=== PATIENT | male | born 1945 | race Caucasian/White ===

== ENCOUNTER → 2018-02-27 | Outpatient (CLI) | payer OTHER, MEDICARE | LOC: M SLEEP 19:32 | DX: G47.33 Obstructive sleep apnea (adult) (pediatric) (principal); G47.61 Periodic limb movement disorder | CPT/HCPCS: 95811 ==

== ENCOUNTER 2019-04-08 11:34 | Day surgery (SDC) | payer OTHER ==
[~2019-04-08] VITALS: Ht 172.7 cm; Wt 89.8 kg
[~2019-04-08 11:34] MED LIST: ASPI81TA85 PO; NS 1,000 ML IV ONE; PROPOFOL 200 MG/20 ML VIAL As Ordered ONE; SIMV10TA21 PO; SYMB16INH INH
--- NOTE | 2019-04-08 13:07 | ROOR ---
Patient Name: Ricardo Hooper Procedure Date: 04/08/2019 12:46 PM Date of : 1945 Age: 74 Room: [facility] Gender: Male Note Status: Finalized Procedure: Total Colonoscopy to Cecum + Biopsy Polypectomy Indications: High risk colon cancer surveillance: Personal history of colonic polyps, Last colonoscopy: 2013 Providers: Regan Oshea MD Referring MD: Eric Escobedo MD Requesting Provider: Medicines: Monitored Anesthesia Care Complications: No immediate complications. Procedure: Pre-Anesthesia Assessment: - The heart rate, respiratory rate, oxygen saturations, blood pressure, adequacy of pulmonary ventilation, and response to care were monitored throughout the procedure. The Colonoscope was introduced through the anus and advanced to the cecum, identified by appendiceal orifice and ileocecal valve. The colonoscopy was performed without difficulty. The patient tolerated the procedure well. The quality of the bowel preparation was excellent. Findings: The perianal and digital rectal examinations were normal. Non-bleeding internal hemorrhoids were found during retroflexion. The hemorrhoids were small and Grade I (internal hemorrhoids that do not prolapse). A small polyp was found at 30 cm proximal to the anus. The polyp was sessile. The polyp was removed with a jumbo cold forceps. Resection and retrieval were complete. A small polyp was found in the mid ascending colon. The polyp was sessile. The polyp was removed with a cold biopsy forceps. Resection and retrieval were complete. The exam was otherwise without abnormality on direct and retroflexion views. Impression: - Non-bleeding internal hemorrhoids. - One small polyp at 30 cm proximal to the anus, removed with a jumbo cold forceps. Resected and retrieved. - One small polyp in the mid ascending colon, removed with a cold biopsy forceps. Resected and retrieved. - The examination was otherwise normal on direct and retroflexion views. - The exam was otherwise normal to the cecum. Recommendation: - Patient has a contact number available for emergencies. The signs and symptoms of potential delayed complications were discussed with the patient. Return to normal activities tomorrow. Written discharge instructions were provided to the patient. - High fiber diet. - Discharge patient to home. - Continue present medications. - Await pathology results. - Telephone GI clinic for pathology results in 1 week. - Repeat colonoscopy for symptoms only. - Return to referring physician. - The findings and recommendations were discussed with the patient's family. Regan Oshea MD Regan Oshea MD 04/08/2019 1:07:25 PM Electronically signed by Regan Oshea MD Number of Addenda: 0 Note Initiated On: 04/08/2019 12:46 PM Estimated Blood Loss: Estimated blood loss: none.
[2019-04-08 13:15] VITALS: BP 151/71
== END 2019-04-08 13:39 | disposition home or self-care (01) ==
LOC: M OPP 11:34
PROVIDERS: ATTEND Internal Medicine Gastroenterology
DX: Z12.11 Encounter for screening for malignant neoplasm of colon (principal); Z86.010 Personal history of colon polyps; K64.0 First degree hemorrhoids; D12.2 Benign neoplasm of ascending colon; J44.9 Chronic obstructive pulmonary disease, unspecified; G47.30 Sleep apnea, unspecified; Z79.82 Long term (current) use of aspirin; Z79.899 Other long term (current) drug therapy; Z95.5 Presence of coronary angioplasty implant and graft; Z87.891 Personal history of nicotine dependence

== ENCOUNTER 2019-07-24 10:17 | Observation (INO) | payer MEDICARE, OTHER ==
[~2019-07-24] VITALS: Ht 170.2 cm; Wt 94.6 kg
[~2019-07-24 10:17] MED LIST changes: -NS 1,000 ML IV ONE; -PROPOFOL 200 MG/20 ML VIAL As Ordered ONE
[2019-07-24] MEDS ORDERED: methylPREDNISolone INJ 125 MG/2 ML VIAL (J2930) IV ONE (10:30)
[2019-07-24] MEDS: COMBIVENT RESPIMAT 100-20MCG INHALER 4GM INH SCH ×3 (11:04→11:22)
[2019-07-24 11:08] LABS: VENOUS BASE EXCESS -0.5 (-2.0-2.0); VENOUS HCO3 24.9 MEQ/L (23.0-27.0); VENOUS O2 SATURATION 86.2 % (60.0-80.0); VENOUS PARTIAL PRESSURE CO2 43.5 mmHg (38.0-50.0); VENOUS PARTIAL PRESSURE O2 52.2 mmHg (30.0-50.0); VENOUS PH 7.375 UNITS (7.330-7.430); VENOUS STANDARD HCO3 23.7 MEQ/L; VENOUS TOTAL CO2 26.2 MEQ/L (24.0-28.0)
[2019-07-24 11:15] LABS: BASO % 0.3 % (0.0-1.0); EOS % 0.4 % (0.0-3.0); HEMATOCRIT 47.5 % (42.0-52.0); HEMOGLOBIN 15.5 g/dl (13.5-17.5); LYMPH % 10.4 % (24.0-44.0); MEAN CORPUSCULAR HEMOGLOBIN 30.8 pg (27.0-33.0); MEAN CORPUSCULAR HGB CONC 32.6 g/dl (32.0-36.5); MEAN CORPUSCULAR VOLUME 94.4 fl (80.0-96.0); MONO # 0.7 10^3/uL (0.0-0.8); NEUTROPHILS # 7.3 10^3/uL (1.5-8.5); NEUTROPHILS % 80.4 % (36.0-66.0); PLATELET COUNT, AUTOMATED 163 10^3/uL (150-450); RED BLOOD COUNT 5.03 10^6/uL (4.30-6.10); WHITE BLOOD COUNT 9.1 10^3/uL (4.0-10.0)
--- NOTE | 2019-07-24 11:18 | REP ---
CHEST, SINGLE VIEW: Single view of the chest is performed and compared to a prior study of 05/17/2017 and 06/04/2012. There is mild bibasilar interstitial fibrotic change. No acute infiltrate is seen. The heart is upper limits of normal in size. There is calcification and tortuosity of the thoracic aorta. Mediastinal silhouette is unremarkable. IMPRESSION: Mild chronic changes without evidence of acute infiltrate. Electronically Signed by Eliezer Aldana MD 07/24/2019 11:33 A
[2019-07-24 11:26] LABS: INR 1.06; PROTHROMBIN TIME 13.5 SECONDS (11.8-14.0)
[2019-07-24] MEDS ORDERED: ACETAMINOPHEN 325 MG TAB PO ONE (11:30)
[2019-07-24 11:44] LABS: ALBUMIN 3.7 GM/DL (3.2-5.2); ALT/SGPT 13 U/L (12-78); BILIRUBIN,DIRECT 0.3 MG/DL (0.0-0.2); BILIRUBIN,TOTAL 0.9 MG/DL (0.2-1.0); BLOOD UREA NITROGEN 16 MG/DL (7-18); CALCIUM LEVEL 8.9 MG/DL (8.8-10.2); CARBON DIOXIDE LEVEL 26 MEQ/L (21-32); CHLORIDE LEVEL 105 MEQ/L (98-107); CK-MB VALUE MASS < 1.0 NG/ML (<3.6); CPK CREATINE PHOSPHOKINASE 122 U/L (39-308); CREATININE FOR GFR 0.92 MG/DL (0.70-1.30); GLOMERULAR FILTRATION RATE > 60.0 (>42); GLUCOSE, FASTING 122 MG/DL (70-100); MB/CK RELATIVE INDEX 0.82 (< OR =4); NT-PRO BNP 78 PG/ML (<125); POTASSIUM SERUM 4.1 MEQ/L (3.5-5.1); SODIUM LEVEL 139 MEQ/L (136-145); THYROID STIMULATING HORMONE 0.926 uIU/ML (0.358-3.740); TOTAL PROTEIN 7.1 GM/DL (6.4-8.2); TROPONIN I 0.02 NG/ML (< 0.10)
[2019-07-24] MEDS ORDERED: ISOVUE-370 76% 100ML VIAL (Q9967) As Ordered ONE (11:59)
[2019-07-24] MEDS ORDERED: ONDANSETRON 4MG/2ML VIAL (J2405) IV ONE (12:00)
--- NOTE | 2019-07-24 12:24 | ECGEPIP ---
[facility] - ED Test Date: 2019-07-24 Pat Name: AMADOR RAYA Department: Room: - Gender: Male Electromechanic: MARC : 1945 Requested By: Diamante Sierra Order Number: [id number] Reading MD: Johnie Corrales Measurements Intervals [place] Rate: 98 P: 46 NM: 184 QRS: 28 QRSD: 91 T: 43 QT: 330 QTc: 422 Interpretive Statements SINUS RHYTHM NO PRIORS FOR COMPARISON Electronically Signed on 07-24-2019 12:24:35 EDT by Johnie Corrales
[2019-07-24] MEDS: MORPHINE 2 MG/ML 1ML VIAL (J2270) IV PRN ×2 (12:28→15:13)
--- NOTE | 2019-07-24 12:38 | REP ---
CT pulmonary angiogram: With IV contrast. History: Chest pain shortness of breath Comparison studies: Noncontrast chest CT study July 14, 2017. Contrast dose: 75 ML of Isovue [address] technique: Helical scanning is acquired and overlapping 1.5 mm and contiguous 3 mm axial images are reformatted. In addition, maximum intensity projection and multiplanar re-formation images are generated in sagittal and coronal imaging projections. CT pulmonary angiographic findings: There is good opacification of the pulmonary arterial tree. There is no vessel cutoff or filling defect to suggest pulmonary embolism. The thoracic aorta shows no evidence of aneurysm or dissection. There is vascular calcification noted and some tortuosity. No hilar or mediastinal mass or adenopathy is observed. No pleural or pericardial effusion is seen. There is multifocal calcific pleural plaquing bilaterally which may indicate previous asbestos exposure. This was seen previously. No adrenal lesion is seen. There is an aortic stent graft in place in the upper abdomen. There are mild bibasilar pleuroparenchymal fibrotic changes. No infiltrate is seen in the lung rodriguez. No pulmonary mass lesion or significant nodule is seen. No bony destructive lesion is appreciated. Impression: No CT evidence of pulmonary embolus. Bilateral calcific pleural plaquing consistent with previous asbestos exposure. Mild bibasilar fibrosis. Otherwise no acute disease. Electronically Signed by Jesus Tay MD 07/24/2019 12:30 P
[2019-07-24] MEDS ORDERED: SIMV20TA22 PO (13:37)
[2019-07-24] MEDS ORDERED: IPRATROPIUM 0.5MG/ALBUTEROL 2.5MG INH SOL UD 3ML (DUONEB)(J7620) NEB PRN (14:45)
--- NOTE | 2019-07-24 14:59 | HPE ---
DATE OF ADMISSION: 07/24/2019 PRIMARY CARE PROVIDER: Dr. Colton Escobedo MD. ATTENDING PHYSICIAN: Hospitalist group - Dr. Falk. CHIEF COMPLAINT: Shortness of breath and atypical chest pain . HISTORY: I was called to admit Ricardo Hooper to the hospitalist group. A 74-year-old with reported exacerbation of chronic obstructive pulmonary disease (COPD) . Upon arrival I examined the patient in the emergency room. He was not describing any cough or shortness of breath. Said that he just became abruptly unable to breath deeply due to pleuritic chest discomfort, which was in the mid sternal region. It did not radiate and there was no palpitations. He thinks that if he could breath deeply without pain, he would not be short of breath. There has been no wheeze. No recent upper respiratory infection (URI). He received Decadron in a nebulizer on route. The nebulized treatment did not have any effect to the chest discomfort. Spiral CT angiogram in the emergency room was negative for any infiltrate or pulmonary embolism. He has a past history of COPD and uses Symbicort 160/4.5 inhaler. He has a long history of tobacco abuse. PAST MEDICAL HISTORY: Tobacco abuse in the past but has not smoked in over a year. Hyperlipidemia for which he is on low dose simvastatin 10 mg daily and aspirin 81 mg daily. Colonoscopy April 2019. Tubular adenoma was found in the ascending colon and at 30 cm. PAST SURGICAL HISTORY: He has a femoral artery stent put in on an unspecified side. Appendectomy. SOCIAL HISTORY: He has not smoked in over a year. Moderate alcohol intake. He is . REVIEW OF SYSTEMS: No exertional chest pain. He has a mid sternal ache without radiation. No cough, wheeze, hemoptysis, upper respiratory infection, nasal congestion. No fever, chills, night sweats or weight loss. MEDICATIONS: - Symbicort 160/4.5 two puffs twice a day - simvastatin 10 mg daily - aspirin 81 mg daily ALLERGIES: No known drug allergies. FAMILY HISTORY: Noncontributory. PHYSICAL EXAMINATION: Alert, oriented, conversant in no distress. Vital signs per flow sheet. Afebrile. Oxygen saturation is 91-92% on room air. General appearance: Awake, conversant, mildly anxious in no distress. Pupils equal, round and react to light. Tympanic membranes normal. Oropharynx benign. Neck: No masses. Lungs clear. No wheezes, no rhonchi. Good air movement. Heart: Regular rate and rhythm. No murmur. Chest wall is a little tender to palpate. Abdomen soft. Nontender. No masses. Extremities: No clubbing or cyanosis or edema. Normal strength in arms and legs. LABS: Chest x-ray unremarkable. CT angiogram of the chest negative for pulmonary infiltrate or pulmonary embolism. White count 9.1, hemoglobin 15.5, platelets 163. Sodium 139, potassium 4.1, BUN 16, creatinine 0.9, glucose 122. Lactic acid is normal. ABG 7.37/43/52. (venous blood gas on arterial blood gas). Respiratory panel was negative. IMPRESSION: 1. Shortness of breath: Patient presented with COPD exacerbation but I do not think that is actually the case. His respirations are normal except he cannot take a deep inspiration, may well be musculoskeletal in origin. Continue his current medications adding DuoNeb as needed. I do not think he needs a systemic steroid. 2. Atypical chest pain, etiology is unknown, unlikely to be coronary cause. Serial cardiac marker panels and repeat EKG in the morning as ordered. If he rules out for an MRI he can safely go home. 3. Hyperlipidemia: On atorvastatin 10 mg daily 4. Obstructive sleep apnea: Continue his home CPAP.
[2019-07-24 15:45] VITALS: BP 148/74
[2019-07-24] MEDS ORDERED: SLF 3 ML SYR IV PRN (16:00)
[2019-07-24 20:00] VITALS: BP 131/68
[2019-07-24] MEDS: IPRATROPIUM 0.5MG/ALBUTEROL 2.5MG INH SOL UD 3ML (DUONEB)(J7620) NEB SCH (20:00)
[2019-07-24] MEDS: GI COCKTAIL 50ML BTL(HYOSCYAMINE/MAALOX/LIDOCAINE VISCOUS)(1:3:1) PO PRN (20:05)
[2019-07-24] MEDS: SLF 3 ML SYR IV SCH (20:06)
[2019-07-24] MEDS: SYMBICORT 160/4.5MCG INHALER 6GM INH SCH (20:26)
[2019-07-24] MEDS ORDERED: SIMVASTATIN 10 MG TAB PO SCH (21:00)
[2019-07-24] MEDS ORDERED: ASPIRIN 81 MG ENTERIC TAB PO SCH (21:00)
[2019-07-24 21:31] LABS: CK-MB VALUE MASS < 1.0 NG/ML (<3.6); CPK CREATINE PHOSPHOKINASE 124 U/L (39-308); MB/CK RELATIVE INDEX 0.81 (< OR =4); TROPONIN I < 0.02 NG/ML (< 0.10)
[2019-07-24] MEDS ORDERED: ACETAMINOPHEN TAB 650MG DOSE (2X325MG) PO ONE (21:45)
[2019-07-25] VITALS: BP 138/64
[2019-07-25] MEDS: IPRATROPIUM 0.5MG/ALBUTEROL 2.5MG INH SOL UD 3ML (DUONEB)(J7620) NEB SCH ×3 (01:46→14:00)
[2019-07-25 04:00] VITALS: BP 134/69
[2019-07-25] MEDS: SLF 3 ML SYR IV SCH (05:00)
[2019-07-25 05:28] LABS: HEMATOCRIT 43.3 % (42.0-52.0); HEMOGLOBIN 14.2 g/dl (13.5-17.5); MEAN CORPUSCULAR HEMOGLOBIN 31.3 pg (27.0-33.0); MEAN CORPUSCULAR HGB CONC 32.8 g/dl (32.0-36.5); MEAN CORPUSCULAR VOLUME 95.6 fl (80.0-96.0); PLATELET COUNT, AUTOMATED 148 10^3/uL (150-450); RED BLOOD COUNT 4.53 10^6/uL (4.30-6.10); WHITE BLOOD COUNT 12.5 10^3/uL (4.0-10.0)
[2019-07-25 06:00] VITALS: BP 134/69
[2019-07-25 06:00] LABS: BLOOD UREA NITROGEN 25 MG/DL (7-18); CALCIUM LEVEL 8.2 MG/DL (8.8-10.2); CARBON DIOXIDE LEVEL 26 MEQ/L (21-32); CHLORIDE LEVEL 107 MEQ/L (98-107); CK-MB VALUE MASS 1.1 NG/ML (<3.6); CPK CREATINE PHOSPHOKINASE 105 U/L (39-308); CREATININE FOR GFR 1.18 MG/DL (0.70-1.30); GLOMERULAR FILTRATION RATE > 60.0 (>42); GLUCOSE, FASTING 149 MG/DL (70-100); MB/CK RELATIVE INDEX 1.05 (< OR =4); POTASSIUM SERUM 4.2 MEQ/L (3.5-5.1); SODIUM LEVEL 138 MEQ/L (136-145); TROPONIN I < 0.02 NG/ML (< 0.10)
[2019-07-25] MEDS: SYMBICORT 160/4.5MCG INHALER 6GM INH SCH (07:59)
[2019-07-25 08:00] VITALS: BP 154/73
[2019-07-25] MEDS ORDERED: ENOXAPARIN 40 MG/0.4 ML SYRINGE (J1650) SC SCH (09:00)
[2019-07-25] MEDS: GI COCKTAIL 50ML BTL(HYOSCYAMINE/MAALOX/LIDOCAINE VISCOUS)(1:3:1) PO PRN (11:26)
[2019-07-25 11:39] VITALS: BP 129/67
[2019-07-25 13:13] LABS: CK-MB VALUE MASS 1.4 NG/ML (<3.6); CPK CREATINE PHOSPHOKINASE 121 U/L (39-308); MB/CK RELATIVE INDEX 1.16 (< OR =4); TROPONIN I < 0.02 NG/ML (< 0.10)
[2019-07-25] MEDS ORDERED: ESOM1CAP5 PO (14:40)
--- NOTE | 2019-07-25 15:16 | DS.PDOC ---
Discharge Summary General Date of Admission Jul 24, 2019 at 14:31 Date of Discharge 07/25/19 Discharge Summary PROCEDURES PERFORMED DURING STAY: [None]. ADMITTING DIAGNOSES: 1. Atypical chest pain 2. SOB DISCHARGE DIAGNOSES: 1. Chest pain r/o ACS 2. HLD 3. HTN COMPLICATIONS/CHIEF COMPLAINT: Atypical Chest Pain. HISTORY OF PRESENT ILLNESS:- From Dr. Irby's H and P "I was called to admit Ricardo Hooper to the hospitalist group. A 74-year-old with reported exacerbation of chronic obstructive pulmonary disease (COPD) . Upon arrival I examined the patient in the emergency room. He was not describing any cough or shortness of breath. Said that he just became abruptly unable to breath deeply due to pleuritic chest discomfort, which was in the mid sternal region. It did not radiate and there was no palpitations. He thinks that if he could breath deeply without pain, he would not be short of breath. There has been no wheeze. No recent upper respiratory infection (URI). He received Decadron in a nebulizer on route. The nebulized treatment did not have any effect to the chest discomfort. Spiral CT angiogram in the emergency room was negative for any infiltrate or pulmonary embolism. He has a past history of COPD and uses Symbicort 160/4.5 inhaler. He has a long history of tobacco abuse." HOSPITAL COURSE: Patient was admitted to trend serial troponins and EKG which shows no abnormalities/elevations. Patient reports chest pain is superior midsternal, p leuritic in nature and only experience with deep inspiration. Reports no association with meals but improves with GI cocktail. He was monitored overnight and into this morning, stating that he continues to feel better, unsure if the GI cocktail had play a role but otherwise does not report any other symptoms. CT angiogram does not show any evidence of embolism, does show b/l calcific pleural plaqing consistent with previous asbestos exposure. Vital signs remain stable. Will discharge patient to f/u with PMD and trial a week course of PPI. Suspect that symptoms will completely resolve by then. DISCHARGE MEDICATIONS: Please see below. ALLERGIES: Please see below. PHYSICAL EXAMINATION ON DISCHARGE: General: No acute distress, Alert Eyes: Normal sclera, EOMI, DESTINEY HENT: Atraumatic Cardiovascular: Normal rate, normal rhythm. Pulmonary: Clear to auscultation b/l, no wheezing GI: Soft, nontender, nondistended Skin: Warm and dry Neuro: CN grossly intact. No focal deficits. Strengths equal b/l. Psych: oriented x 3 LABORATORY DATA: Please see below. IMAGING: CT angio- No CT evidence of pulmonary embolus. Bilateral calcific pleural plaquing consistent with previous asbestos exposure. Mild bibasilar fibrosis. Otherwise no acute disease. ACTIVITY: [As tolerated]. DIET: Cardiac diet DISCHARGE PLAN: f/u PMD within 1 week Complete 1 week trial of PPI- sent to pharmacy DISPOSITION: Home. DISCHARGE INSTRUCTIONS: f/u PMD within 1 week Complete 1 week trial of PPI- sent to pharmacy ITEMS TO FOLLOWUP ON ON OUTPATIENT: None DISCHARGE CONDITION: [Stable]. TIME SPENT ON DISCHARGE: 35 minutes. Vital Signs/I&Os Vital Signs Date Time Temp Pulse Resp B/P (MAP) Pulse Ox O2 Delivery O2 Flow Rate FiO2 07/25/19 11:39 97.7 87 18 129/67 (87) 92 Room Air I&O- Last 24 Hours up to 6 AM 07/25/19 06:00 Intake Total 780 ml Output Total 1120 ml Balance -340 ml Laboratory Data Labs 24H Laboratory Tests 2 07/24/19 20:51: Total Creatine Kinase 124, Creatine Kinase MB < 1.0, Creatine Kinase MB Relative Index 0.81, Troponin I < 0.02 07/25/19 04:43: Total Creatine Kinase 105, Creatine Kinase MB 1.1, Creatine Kinase MB Relative Index 1.05, Troponin I < 0.02, Nucleated Red Blood Cells % (auto) 0.0, Anion Gap 5L, Glomerular Filtration Rate > 60.0, Calcium Level 8.2L 07/25/19 12:18: Total Creatine Kinase 121, Creatine Kinase MB 1.4, Creatine Kinase MB Relative Index 1.16, Troponin I < 0.02 CBC/BMP Laboratory Tests 07/25/19 04:43 Microbiology Microbiology 07/24/19 Blood Culture - Preliminary, Resulted No growth after 24 hours . All specim... 07/24/19 Respiratory Virus Panel (PCR) (JS) - Final, Complete 07/24/19 Blood Culture - Preliminary, Resulted No growth after 24 hours . All specim... Discharge Medications Scheduled Aspirin (Aspir 81) 81 Mg Tablet.dr, 81 MG PO QHS, (Reported) Budesonide/Formoterol (Symbicort 160-4.5 Mcg Inhaler) 6 Gm Hfa.aer.ad, 2 PUFF INH BID, (Reported) Esomeprazole Magnesium (Esomeprazole Magnesium) 40 Mg Capsule.dr, 40 MG PO DAILY Simvastatin (Simvastatin) 20 Mg Tablet, 10 MG PO QHS, (Reported) Allergies Coded Allergies: No Known Allergies (Unverified , 04/01/19) LATOYA ARCE MD Jul 25, 2019 15:16
--- NOTE | 2019-07-25 22:09 | ECGEPIP ---
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
== END 2019-07-25 15:41 | disposition home or self-care (01) ==
LOC: M ED 10:17 → EDBD 10:17 → M ED INP 14:31 → ENRESERV 15:03 → M PCU 15:38
PROVIDERS: ADMIT Family Medicine; ATTEND Student in an Organized Health Care Education/Training Program
DX: R07.9 Chest pain, unspecified (principal); E78.5 Hyperlipidemia, unspecified; I10 Essential (primary) hypertension; J44.9 Chronic obstructive pulmonary disease, unspecified; J92.9 Pleural plaque without asbestos; R06.02 Shortness of breath; G47.33 Obstructive sleep apnea (adult) (pediatric); Z77.090 Contact with and (suspected) exposure to asbestos; Z79.899 Other long term (current) drug therapy; Z79.82 Long term (current) use of aspirin; Z79.51 Long term (current) use of inhaled steroids; Z87.891 Personal history of nicotine dependence
CPT/HCPCS: 36415; 71045; 71275; 80048; 80076; 82550; 82553; 82803; 83605; 83880; 84443; 84484; 85025; 85027; 85610; 87040; 87486; 87581; 87633; 87798; 93005; 93041; 94640; 96372; 96374; 96375; 96376; 99285; G0378; J1650; J2270; J2405; J2930; Q9967

== ENCOUNTER → 2019-08-15 | Outpatient (CLI) | payer MEDICARE ==
[~2019-08-15] MED LIST changes: +ESOM1CAP5 PO; +SIMV20TA22 PO
== END ==
LOC: M LABSMTC 11:52
PROVIDERS: ATTEND Family Medicine
DX: Z11.59 Encounter for screening for other viral diseases (principal); Z20.828 Contact with and (suspected) exposure to other viral communicable diseases

== ENCOUNTER 2019-08-17 17:35 | Inpatient (IN) | payer MEDICARE ==
[~2019-08-17] VITALS: Ht 172.7 cm; Wt 85.9 kg
[2019-08-17] MEDS ORDERED: ACETAMINOPHEN 325 MG TAB PO ONE (18:00)
[2019-08-17 18:05] LABS: BASO % 0.3 % (0.0-1.0); HEMATOCRIT 42.8 % (42.0-52.0); HEMOGLOBIN 13.9 g/dl (13.5-17.5); LYMPH # 0.3 10^3/uL (1.5-5.0); LYMPH % 3.7 % (24.0-44.0); MEAN CORPUSCULAR HGB CONC 32.5 g/dl (32.0-36.5); MEAN CORPUSCULAR VOLUME 92.4 fl (80.0-96.0); MONO # 0.4 10^3/uL (0.0-0.8); PLATELET COUNT, AUTOMATED 201 10^3/uL (150-450); RED BLOOD COUNT 4.63 10^6/uL (4.30-6.10); WHITE BLOOD COUNT 7.8 10^3/uL (4.0-10.0)
[2019-08-17 18:09] LABS: ABG BASE EXCESS 0.9 (-2.0-2.0); ABG O2 SATURATION 93.6 % (95.0-99.0); ABG PARTIAL PRESSURE CO2 33.6 mmHg (35.0-45.0); ABG PARTIAL PRESSURE O2 64.6 mmHg (75.0-100.0); ABG STANDARD HCO3 25.2 MEQ/L (22.0-26.0); ABG pH (ARTERIAL) 7.471 UNITS (7.350-7.450)
[2019-08-17] MEDS ORDERED: PROAAER10 INH (18:10)
[2019-08-17 18:18] LABS: INR 1.22; PROTHROMBIN TIME 15.1 SECONDS (11.8-14.0)
[2019-08-17 18:19] LABS: PARTIAL THROMBOPLASTIN TIME 39.6 SECONDS (25.0-38.4)
[2019-08-17 18:37] LABS: D-DIMER QUANT > 4000.00 ng/ml (<500)
[2019-08-17 18:43] LABS: ALBUMIN 2.7 GM/DL (3.2-5.2); ALT/SGPT 14 U/L (12-78); BILIRUBIN,TOTAL 0.7 MG/DL (0.2-1.0); BLOOD UREA NITROGEN 19 MG/DL (7-18); CALCIUM LEVEL 8.4 MG/DL (8.8-10.2); CARBON DIOXIDE LEVEL 25 MEQ/L (21-32); CHLORIDE LEVEL 99 MEQ/L (98-107); CK-MB VALUE MASS < 1.0 NG/ML (<3.6); CPK CREATINE PHOSPHOKINASE 42 U/L (39-308); CREATININE FOR GFR 1.04 MG/DL (0.70-1.30); GLOMERULAR FILTRATION RATE > 60.0 (>42); GLUCOSE, FASTING 125 MG/DL (70-100); LDH LACTATE DEHYDROGENASE 266 U/L (87-241); MB/CK RELATIVE INDEX 2.38 (< OR =4); SODIUM LEVEL 132 MEQ/L (136-145); TOTAL PROTEIN 6.6 GM/DL (6.4-8.2); TROPONIN I 0.02 NG/ML (< 0.10)
[2019-08-17] MEDS ORDERED: AZITHROMYCIN INJ 500 MG, VIAL MATE ADAPTER 1 EACH in D5W 250 ML IV ONE (18:45)
[2019-08-17 19:22] LABS: FIBRINOGEN 1285 MG/DL (221-452)
--- NOTE | 2019-08-17 19:31 | ECGEPIP ---
[facility] - ED Test Date: 2019-08-17 Pat Name: AMADOR RAYA Department: Room: - Gender: Male Survey Research Associate: MEDINA : 1945 Requested By: MICHAEL PÉREZ Order Number: [id number] Reading MD: Diamante Sierra Measurements Intervals [place] Rate: 96 P: 64 MT: 180 QRS: 20 QRSD: 100 T: 41 QT: 335 QTc: 424 Interpretive Statements SINUS RHYTHM NSTTW abnormalities INCREASED RATE 07/25/19 Electronically Signed on 08-17-2019 19:31:00 EDT by Diamante Sierra
[2019-08-17 19:32] LABS: FERRITIN 880 NG/ML (26-388); NT-PRO BNP 250 PG/ML (<125); TRIGLYCERIDES LEVEL 128 MG/DL (<150)
--- NOTE | 2019-08-17 19:41 | HPEPDOC ---
General Date of Admission Aug 17, 2019 at 18:45 Date of Service: Aug 17, 2019 Chief Complaint The patient is a 74-year-old male admitted with a reason for visit of Coronavirus Infection. Source: Patient Exam Limitations: No limitations Timing/Duration: Day(s) Severity: Moderate, Severe Associated Symptoms: Cough History of Present Illness Patient is 74 years old male with past history of COPD, hyperlipidemia presented hospital with cough, fever. Patient states that he has been having symptoms for past 4-5 days. PCP sent him for COVID 19 test, which came back positive. Today patient has been having increasing shortness of breath. In ER patient was found to have a right lung infiltrate on the chest x-ray, his oxygen saturation was 88% he was placed on that 3 L of oxygen via nasal cannula. Also patient was found to have fever, but no leukocytosis Home Medications Scheduled Aspirin (Aspir 81) 81 Mg Tablet.dr, 81 MG PO QHS, (Reported) Budesonide/Formoterol (Symbicort 160-4.5 Mcg Inhaler) 6 Gm Hfa.aer.ad, 2 PUFF INH BID, (Reported) Simvastatin (Simvastatin) 20 Mg Tablet, 10 MG PO QHS, (Reported) Scheduled PRN Albuterol Sulfate (Proair Hfa) 8.5 Gm Hfa.aer.ad, 2 PUFF INH Q4-6HP PRN for wheezing, (Reported) Allergies Coded Allergies: No Known Allergies (Unverified , 04/01/19) Past Medical History Medical History Tobacco abuse in the past but has not smoked in over a year. Hyperlipidemia for which he is on low dose simvastatin 10 mg daily and aspirin 81 mg daily. Colonoscopy April 2019. Tubular adenoma was found in the ascending colon and at 30 cm. Surgical History He has a femoral artery stent put in on an unspecified side. Appendectomy. Social History * Smoker: former Smoker Alcohol: occationally Drugs: denies A-FIB/CHADSVASC A-FIB History Current/History of A-Fib/PAF?: No Current PO Anticoag Therapy: No Review of Systems Constitutional: Reports: Chills, Fever Eyes: Denies: Pain ENT: Reports: Head Aches Skin: Denies: Rash, Lesions Pulmonary: Reports: Dyspnea, Cough Cardiovascular: Denies: Chest Pain, Palpitations Gastrointestinal: Denies: Nausea, Vomiting Genitourinary: Denies: Dysuria, Frequency Hematologic: Denies: Bruising Endocrine: Denies: Polydipsia Musculoskeletal: Denies: Neck Pain Neurological: Denies: Weakness, Numbness Psych: Reports: Mood Normal Physical Examination General Exam: Positive: Alert, Cooperative Eye Exam: Positive: PERRLA ENT Exam: Positive: Atraumatic Neck Exam: Negative: Supple, JVD Chest Exam: Positive: Rales, Rhonchi Heart Exam: Positive: Tachycardic Telemetry: Positive: No significant arrhythmia, Sinus Abdomen Exam: Positive: Normal bowel sounds Extremity Exam: Positive: Clubbing; Negative: Cyanosis Skin Exam: Positive: Nl turgor and temperature Neuro Exam: Positive: Strength at 5/5 X4 ext, Cranial Nerves 3-12 NL Psych Exam: Positive: Mental status NL Vital Signs Vital Signs Date Time Temp Pulse Resp B/P (MAP) Pulse Ox O2 Delivery O2 Flow Rate FiO2 08/17/19 19:01 116 93 08/17/19 19:00 131/65 (87) 08/17/19 18:31 Nasal Cannula 3.0 08/17/19 18:05 24 08/17/19 17:39 100.7 Laboratory Data Labs 24H Laboratory Tests 2 08/17/19 17:52: Prothrombin Time 15.1H, Prothromb Time International Ratio 1.22, Activated Partial Thromboplast Time 39.6H, Fibrinogen 1285H, D-Dimer, Quantitative > 4000.00H, Lactic Acid Level 2.2*H 08/17/19 17:53: Immature Granulocyte % (Auto) 1.0, Neutrophils (%) (Auto) 90.0H, Lymphocytes (%) (Auto) 3.7L, Monocytes (%) (Auto) 5.0, Eosinophils (%) (Auto) 0.0, Basophils (%) (Auto) 0.3, Neutrophils # (Auto) 7.0, Lymphocytes # (Auto) 0.3L, Monocytes # (Auto) 0.4, Eosinophils # (Auto) 0.0, Basophils # (Auto) 0.0, Nucleated Red Blood Cells % (auto) 0.0, Anion Gap 8, Glomerular Filtration Rate > 60.0, Calcium Level 8.4L, Total Bilirubin 0.7, Aspartate Amino Transf (AST/SGOT) 31, Alanine Aminotransferase (ALT/SGPT) 14, Alkaline Phosphatase 111, Lactate Dehydrogenase 266H, Total Creatine Kinase 42, Creatine Kinase MB < 1.0, Creatine Kinase MB Relative Index 2.38, Troponin I 0.02, C-Reactive Protein, Quantitative 36.30H, Total Protein 6.6, Albumin 2.7L, Albumin/Globulin Ratio 0.69L 08/17/19 18:01: Blood Gas Bicarbonate Standard 25.2, Arterial Blood pH 7.471H, Arterial Blood Partial Pressure CO2 33.6L, Arterial Blood Partial Pressure O2 64.6L, Arterial Blood Total CO2 25.0, Arterial Blood HCO3 24.0, Arterial Blood Base Excess 0.9, Arterial Blood Oxygen Saturation 93.6L CBC/BMP Laboratory Tests 08/17/19 17:53 Microbiology Microbiology 08/17/19 Blood Culture, Received Pending 08/17/19 Blood Culture, Received Pending Assessment/Plan Patient is 74 years old male with past history of COPD, hyperlipidemia presented hospital with cough, fever. Patient states that he has been having symptoms for past 4-5 days. PCP sent him for COVID 19 test, which came back positive. Today patient has been having increasing shortness of breath. In ER patient was found to have a right lung infiltrate on the chest x-ray, his oxygen saturation was 8 8% he was placed on that 3 L of oxygen via nasal cannula. Also patient was found to have fever, but no leukocytosis Problems (1) Sepsis Status: Acute Problem Text: Patient has dyspnea, tachycardia and fever Secondary to viral infection IV fluid Azithromycin, hydroxychloroquine (2) Pneumonia Status: Acute Problem Text: Secondary to COVID 19 Continue oxygen treatment Azithromycin with hydroxychloroquine started, given oxygen saturation 88% Continue inhalers (3) Coronavirus infection Status: Acute Problem Text: Follow COVID 19 protocol Will monitor inflammatory markers, blood tests Plan / VTE VTE Prophylaxis Ordered?: Yes SHAHZAD MCCLENDON DO Aug 17, 2019 19:41
[2019-08-17 20:56] VITALS: BP 131/77; O2SAT 96
[2019-08-17] MEDS ORDERED: HYDROXYCHLOROQUINE 200 MG TAB PO SCH (21:00)
[2019-08-17] MEDS: ASPIRIN 81 MG ENTERIC TAB PO SCH (21:03)
[2019-08-17] MEDS: NS 1,000 ML IV SCH (21:03)
[2019-08-17] MEDS: SYMBICORT 160/4.5MCG INHALER 6GM INH SCH (22:00)
[2019-08-17] MEDS: HYDROXYCHLOROQUINE 200 MG TAB PO SCH (22:30)
[2019-08-17] MEDS: ENOXAPARIN 60MG/0.6ML SYRINGE (J1650 PER 10MG) SC SCH (22:30)
[2019-08-18] VITALS (10 sets, daily range): BP systolic 106–141; BP diastolic 55–67; O2SAT 88–97
[2019-08-18] MEDS: ACETAMINOPHEN TAB 650MG DOSE (2X325MG) PO PRN ×4 (05:04→22:05)
[2019-08-18] MEDS: ALBUTEROL 90 MCG/ACT 8GM HFA INHALER INH PRN ×3 (05:06→15:50)
[2019-08-18] MEDS: NS 1,000 ML IV SCH ×2 (07:49→14:46)
[2019-08-18] MEDS: SYMBICORT 160/4.5MCG INHALER 6GM INH SCH ×2 (07:58→20:13)
[2019-08-18 08:43] LABS: BASO % 0.2 % (0.0-1.0); EOS % 0.2 % (0.0-3.0); HEMATOCRIT 37.1 % (42.0-52.0); HEMOGLOBIN 12.2 g/dl (13.5-17.5); LYMPH # 0.4 10^3/uL (1.5-5.0); LYMPH % 7.4 % (24.0-44.0); MEAN CORPUSCULAR HEMOGLOBIN 30.8 pg (27.0-33.0); MEAN CORPUSCULAR HGB CONC 32.9 g/dl (32.0-36.5); MEAN CORPUSCULAR VOLUME 93.7 fl (80.0-96.0); MONO # 0.3 10^3/uL (0.0-0.8); MONO % 5.2 % (0.0-5.0); NEUTROPHILS # 5.1 10^3/uL (1.5-8.5); NEUTROPHILS % 85.7 % (36.0-66.0); PLATELET COUNT, AUTOMATED 169 10^3/uL (150-450); RED BLOOD COUNT 3.96 10^6/uL (4.30-6.10)
[2019-08-18] MEDS: HYDROXYCHLOROQUINE 200 MG TAB PO SCH ×2 (08:52→19:32)
[2019-08-18] MEDS: ENOXAPARIN 60MG/0.6ML SYRINGE (J1650 PER 10MG) SC SCH ×2 (08:52→19:32)
--- NOTE | 2019-08-18 08:52 | REP ---
REASON: Fever and cough. COMPARISON: 07/24/2019 The technique utilized in obtaining the radiograph has magnified the cardiac silhouette and accentuated the interstitial markings. A new patchy opacity has developed in the right lower lobe, and a subtle new opacity is developing in the right upper lobe. Curvilinear densities are seen in the left base, but represent a change from the prior exam. There is slight right CP angle blunting. The left CP angle is sharp. The heart is not enlarged, although it is magnified by technique. The osseous structures are stable and intact. IMPRESSION: Patchy opacities in the right lung, as described above, consistent with pneumonia. This is seen with a small right pleural effusion. Suspect subsegmental atelectatic changes left lower lobe. Electronically Signed by Patrick Hancock DO 08/18/2019 09:12 A
[2019-08-18 08:55] LABS: INR 1.28; PROTHROMBIN TIME 15.7 SECONDS (11.8-14.0)
[2019-08-18 08:56] LABS: PARTIAL THROMBOPLASTIN TIME 48.9 SECONDS (25.0-38.4)
[2019-08-18 08:59] LABS: D-DIMER QUANT 3847.41 ng/ml (<500)
[2019-08-18 09:18] LABS: TROPONIN I 0.03 NG/ML (< 0.10)
[2019-08-18 09:19] LABS: ALT/SGPT 12 U/L (12-78); BILIRUBIN,TOTAL 0.4 MG/DL (0.2-1.0); BLOOD UREA NITROGEN 16 MG/DL (7-18); CALCIUM LEVEL 7.4 MG/DL (8.8-10.2); CARBON DIOXIDE LEVEL 26 MEQ/L (21-32); CHLORIDE LEVEL 103 MEQ/L (98-107); CREATININE FOR GFR 0.86 MG/DL (0.70-1.30); GLOMERULAR FILTRATION RATE > 60.0 (>42); GLUCOSE, FASTING 98 MG/DL (70-100); MAGNESIUM LEVEL 2.5 MG/DL (1.8-2.4); POTASSIUM SERUM 3.9 MEQ/L (3.5-5.1); SODIUM LEVEL 138 MEQ/L (136-145); TOTAL PROTEIN 5.3 GM/DL (6.4-8.2)
--- NOTE | 2019-08-18 10:54 | IPNPDOC ---
Text Note Date of Service The patient was seen on 08/18/19. NOTE Subjective: Patient complains of generalized weakness and cough. No any acute events overnight. Objective: VITAL SIGNS: Please see below. GENERAL: awake, alert, NAD HEENT: NCAT, anicteric sclera, LINDEN NECK: supple, no JVD CARDIOVASCULAR EXAMINATION: NS1S2 RESPIRATORY EXAMINATION: Bilateral rhonchi at the bases ABDOMINAL EXAMINATION: positive bowel sounds x 4, NT EXTREMITIES: no cyanosis, clubbing, edema SKIN: warm, no rashes. NEUROLOGICAL EXAMINATION: AAO x 3, no motor/sensory deficits PSYCHIATRIC EXAMINATION: calm, normal affect Patient is 74 years old male with past history of COPD, hyperlipidemia presented hospital with cough, fever. Patient states that he has been having symptoms for past 4-5 days. PCP sent him for COVID 19 test, which came back positive. Today patient has been having increasing shortness of breath. In ER patient was found to have a right lung infiltrate on the chest x-ray, his oxygen saturation was 88% he was placed on that 3 L of oxygen via nasal cannula. Also patient was found to have fever, but no leukocytosis Problems (1) Sepsis Patient had dyspnea, tachycardia and fever on admission Secondary to viral infection. Continues to have fever in the morning no leukocytosis IV fluid Azithromycin, hydroxychloroquine (2) Pneumonia Secondary to COVID 19 Continue oxygen treatment Azithromycin with hydroxychloroquine started, given oxygen saturation 88% Continue inhalers (3) Coronavirus infection Follow COVID 19 protocol Will monitor inflammatory markers, blood tests Plan / VTE VTE Prophylaxis Ordered?: Yes VS,Fishbone, I+O VS, Fishbone, I+O Laboratory Tests 08/17/19 17:53 08/18/19 08:23 Vital Signs Date Time Temp Pulse Resp B/P (MAP) Pulse Ox O2 Delivery O2 Flow Rate FiO2 08/18/19 04:00 93 Nasal Cannula 3.0 08/18/19 04:00 101.9 105 28 141/67 (91) I&O- Last 24 Hours up to 6 AM 08/18/19 06:00 Intake Total 515 ml Output Total 600 ml Balance -85 ml SHAHZAD MCCLENDON DO Aug 18, 2019 10:54
--- NOTE | 2019-08-18 12:19 | ECGEPIP ---
[facility] Test Date: 2019-08-18 Pat Name: AMADOR RAYA Department: Room: [place] [address] Gender: Male [employer] Advisor: SONU : 1945 Requested By: SHAHZAD MCCLENDON Order Number: [id number] Reading MD: Sam Garber Measurements Intervals [place] Rate: 95 P: 50 FL: 182 QRS: 5 QRSD: 103 T: 13 QT: 334 QTc: 421 Interpretive Statements SINUS RHYTHM LA conduction disturbance Low voltages with slow precordial R wave progression and persistent S waves V5 and V6; body habitus versus pulmonary disease. No significant change from 08/17/19 Electronically Signed on 08-18-2019 12:18:58 EDT by Sam Garber
[2019-08-18 14:33] LABS: HEMATOCRIT 37.4 % (42.0-52.0); HEMOGLOBIN 12.1 g/dl (13.5-17.5); MEAN CORPUSCULAR HEMOGLOBIN 30.3 pg (27.0-33.0); MEAN CORPUSCULAR HGB CONC 32.4 g/dl (32.0-36.5); MEAN CORPUSCULAR VOLUME 93.5 fl (80.0-96.0); PLATELET COUNT, AUTOMATED 161 10^3/uL (150-450); WHITE BLOOD COUNT 5.7 10^3/uL (4.0-10.0)
[2019-08-18] MEDS ORDERED: CALCIUM GLUCONATE 1,000 MG in D5W MINI-BAG PLUS 100 ML IV ONE (17:00)
[2019-08-18] MEDS: AZITHROMYCIN INJ 500 MG, VIAL MATE ADAPTER 1 EACH in D5W 250 ML IV SCH (18:05)
[2019-08-18] MEDS: ASPIRIN 81 MG ENTERIC TAB PO SCH (19:32)
[2019-08-18 19:44] LABS: HEMATOCRIT 36.2 % (42.0-52.0); HEMOGLOBIN 11.6 g/dl (13.5-17.5); MEAN CORPUSCULAR HEMOGLOBIN 29.9 pg (27.0-33.0); MEAN CORPUSCULAR VOLUME 93.3 fl (80.0-96.0); PLATELET COUNT, AUTOMATED 164 10^3/uL (150-450); RED BLOOD COUNT 3.88 10^6/uL (4.30-6.10); WHITE BLOOD COUNT 6.1 10^3/uL (4.0-10.0)
[2019-08-18 19:56] LABS: INR 1.25; PROTHROMBIN TIME 15.4 SECONDS (11.8-14.0)
[2019-08-18 19:57] LABS: PARTIAL THROMBOPLASTIN TIME 46.6 SECONDS (25.0-38.4)
[2019-08-18 20:00] LABS: D-DIMER QUANT 3323.54 ng/ml (<500)
[2019-08-18 20:10] LABS: TROPONIN I 0.04 NG/ML (< 0.10)
[2019-08-19] VITALS (10 sets, daily range): BP systolic 117–166; BP diastolic 61–77; O2SAT 86–94
[2019-08-19 02:21] LABS: HEMATOCRIT 39.4 % (42.0-52.0); HEMOGLOBIN 12.7 g/dl (13.5-17.5); MEAN CORPUSCULAR HEMOGLOBIN 30.1 pg (27.0-33.0); MEAN CORPUSCULAR HGB CONC 32.2 g/dl (32.0-36.5); MEAN CORPUSCULAR VOLUME 93.4 fl (80.0-96.0); PLATELET COUNT, AUTOMATED 175 10^3/uL (150-450); RED BLOOD COUNT 4.22 10^6/uL (4.30-6.10); WHITE BLOOD COUNT 6.8 10^3/uL (4.0-10.0)
[2019-08-19] MEDS: ALBUTEROL 90 MCG/ACT 8GM HFA INHALER INH PRN ×2 (02:24→07:53)
[2019-08-19] MEDS: ACETAMINOPHEN TAB 650MG DOSE (2X325MG) PO PRN ×4 (03:49→16:43)
[2019-08-19] MEDS: SYMBICORT 160/4.5MCG INHALER 6GM INH SCH ×2 (07:53→20:03)
[2019-08-19] MEDS: ENOXAPARIN 60MG/0.6ML SYRINGE (J1650 PER 10MG) SC SCH ×2 (08:19→20:44)
[2019-08-19] MEDS: HYDROXYCHLOROQUINE 200 MG TAB PO SCH ×2 (08:20→20:43)
[2019-08-19 08:34] LABS: HIV 1&2 SCREEN CENTAUR NEGATIVE (NEGATIVE)
[2019-08-19 08:49] LABS: HEMATOCRIT 38.2 % (42.0-52.0); HEMOGLOBIN 12.5 g/dl (13.5-17.5); MEAN CORPUSCULAR HEMOGLOBIN 30.4 pg (27.0-33.0); MEAN CORPUSCULAR HGB CONC 32.7 g/dl (32.0-36.5); MEAN CORPUSCULAR VOLUME 92.9 fl (80.0-96.0); PLATELET COUNT, AUTOMATED 189 10^3/uL (150-450); RED BLOOD COUNT 4.11 10^6/uL (4.30-6.10); WHITE BLOOD COUNT 7.3 10^3/uL (4.0-10.0)
[2019-08-19] MEDS: CALCIUM/VITAMIN D 500 MG TAB PO SCH (09:00)
[2019-08-19 09:14] LABS: ALBUMIN 2.1 GM/DL (3.2-5.2); ALT/SGPT 16 U/L (12-78); BILIRUBIN,TOTAL 0.6 MG/DL (0.2-1.0); BLOOD UREA NITROGEN 14 MG/DL (7-18); CALCIUM LEVEL 7.6 MG/DL (8.8-10.2); CARBON DIOXIDE LEVEL 25 MEQ/L (21-32); CHLORIDE LEVEL 102 MEQ/L (98-107); CREATININE FOR GFR 0.85 MG/DL (0.70-1.30); FERRITIN 1360 NG/ML (26-388); GLOMERULAR FILTRATION RATE > 60.0 (>42); GLUCOSE, FASTING 94 MG/DL (70-100); LDH LACTATE DEHYDROGENASE 302 U/L (87-241); MAGNESIUM LEVEL 2.5 MG/DL (1.8-2.4); NT-PRO BNP 1431 PG/ML (<125); SODIUM LEVEL 136 MEQ/L (136-145); TOTAL PROTEIN 5.6 GM/DL (6.4-8.2); TRIGLYCERIDES LEVEL 136 MG/DL (<150); TROPONIN I 0.04 NG/ML (< 0.10)
[2019-08-19 09:44] LABS: INR 1.25; PROTHROMBIN TIME 15.4 SECONDS (11.8-14.0)
[2019-08-19 09:46] LABS: PARTIAL THROMBOPLASTIN TIME 45.7 SECONDS (25.0-38.4)
[2019-08-19 09:48] LABS: D-DIMER QUANT 3660.7 ng/ml (<500)
--- NOTE | 2019-08-19 11:08 | IPNPDOC ---
Text Note Date of Service The patient was seen on 08/19/19. NOTE Subjective: Patient continues to complains of generalized weakness and dry co ugh. His oxygen requirements increased to 5 L of oxygen No any acute events overnight. Objective: VITAL SIGNS: Please see below. GENERAL: awake, alert, NAD HEENT: NCAT, anicteric sclera, LINDEN NECK: supple, no JVD CARDIOVASCULAR EXAMINATION: NS1S2 RESPIRATORY EXAMINATION: Bilateral rhonchi at the bases ABDOMINAL EXAMINATION: positive bowel sounds x 4, NT EXTREMITIES: no cyanosis, clubbing, edema SKIN: warm, no rashes. NEUROLOGICAL EXAMINATION: AAO x 3, no motor/sensory deficits PSYCHIATRIC EXAMINATION: calm, normal affect Patient is 74 years old male with past history of COPD, hyperlipidemia presented hospital with cough, fever. Patient states that he has been having symptoms for past 4-5 days. PCP sent him for COVID 19 test, which came back positive. Today patient has been having increasing shortness of breath. In ER patient was found to have a right lung infiltrate on the chest x-ray, his oxygen saturation was 88% he was placed on that 3 L of oxygen via nasal cannula. Also patient was found to have fever, but no leukocytosis Problems (1) Sepsis Patient had dyspnea, tachycardia and fever on admission Secondary to viral infection. Continues to have fever in the morning no leukocytosis IV fluid Azithromycin, hydroxychloroquine Tylenol (2) Pneumonia Secondary to COVID 19 Continue oxygen treatment Azithromycin with hydroxychloroquine started, given oxygen saturation 88% Continue inhalers (3) Coronavirus infection Follow COVID 19 protocol Will monitor inflammatory markers, blood tests Fever Secondary to sepsis to viral infection Tylenol, ibuprofen Plan / VTE VTE Prophylaxis Ordered?: Yes VS,Fishbone, I+O VS, Fishbone, I+O Laboratory Tests 08/18/19 14:26 08/18/19 19:32 08/19/19 02:03 08/19/19 08:14 Vital Signs Date Time Temp Pulse Resp B/P (MAP) Pulse Ox O2 Delivery O2 Flow Rate FiO2 08/19/19 08:00 101.0 104 34 132/63 (86) 92 Nasal Cannula 5.0 I&O- Last 24 Hours up to 6 AM 08/19/19 06:00 Intake Total 4200 ml Output Total 700 ml Balance 3500 ml SHAHZAD MCCLENDON DO Aug 19, 2019 11:08
[2019-08-19 14:25] LABS: HEMATOCRIT 37.6 % (42.0-52.0); HEMOGLOBIN 12.2 g/dl (13.5-17.5); MEAN CORPUSCULAR HEMOGLOBIN 30.3 pg (27.0-33.0); MEAN CORPUSCULAR HGB CONC 32.4 g/dl (32.0-36.5); MEAN CORPUSCULAR VOLUME 93.3 fl (80.0-96.0); PLATELET COUNT, AUTOMATED 180 10^3/uL (150-450); RED BLOOD COUNT 4.03 10^6/uL (4.30-6.10); WHITE BLOOD COUNT 7.6 10^3/uL (4.0-10.0)
[2019-08-19] MEDS: AZITHROMYCIN INJ 500 MG, VIAL MATE ADAPTER 1 EACH in D5W 250 ML IV SCH (17:57)
[2019-08-19 19:39] LABS: HEMATOCRIT 36.7 % (42.0-52.0); MEAN CORPUSCULAR HEMOGLOBIN 30.3 pg (27.0-33.0); MEAN CORPUSCULAR HGB CONC 32.7 g/dl (32.0-36.5); MEAN CORPUSCULAR VOLUME 92.7 fl (80.0-96.0); PLATELET COUNT, AUTOMATED 183 10^3/uL (150-450); RED BLOOD COUNT 3.96 10^6/uL (4.30-6.10); WHITE BLOOD COUNT 8.9 10^3/uL (4.0-10.0)
[2019-08-19 19:52] LABS: INR 1.34; PROTHROMBIN TIME 16.3 SECONDS (11.8-14.0)
[2019-08-19 19:53] LABS: PARTIAL THROMBOPLASTIN TIME 47.7 SECONDS (25.0-38.4)
[2019-08-19 19:56] LABS: D-DIMER QUANT 3116.85 ng/ml (<500)
[2019-08-19 20:10] LABS: FERRITIN 1496 NG/ML (26-388); LDH LACTATE DEHYDROGENASE 302 U/L (87-241); NT-PRO BNP 1367 PG/ML (<125); TRIGLYCERIDES LEVEL 148 MG/DL (<150); TROPONIN I 0.03 NG/ML (< 0.10)
[2019-08-19] MEDS: ASPIRIN 81 MG ENTERIC TAB PO SCH (20:43)
[2019-08-19] MEDS: IBUPROFEN 200 MG TAB PO PRN (20:43)
[2019-08-19] MEDS: cefTRIAXone SOD 1 GM in D5W MINI-BAG PLUS 50 ML IV SCH (20:44)
[2019-08-20] VITALS (9 sets, daily range): BP systolic 94–155; BP diastolic 51–83; O2SAT 89–94
[2019-08-20] MEDS: IBUPROFEN 200 MG TAB PO PRN ×2 (02:55→11:32)
[2019-08-20 05:59] LABS: HEMOGLOBIN 12.5 g/dl (13.5-17.5); MEAN CORPUSCULAR HEMOGLOBIN 30.6 pg (27.0-33.0); MEAN CORPUSCULAR HGB CONC 32.9 g/dl (32.0-36.5); MEAN CORPUSCULAR VOLUME 93.1 fl (80.0-96.0); PLATELET COUNT, AUTOMATED 200 10^3/uL (150-450); RED BLOOD COUNT 4.08 10^6/uL (4.30-6.10)
[2019-08-20 06:16] LABS: INR 1.32; PROTHROMBIN TIME 16.1 SECONDS (11.8-14.0)
[2019-08-20 06:17] LABS: PARTIAL THROMBOPLASTIN TIME 50.9 SECONDS (25.0-38.4)
[2019-08-20 06:19] LABS: D-DIMER QUANT 3141.53 ng/ml (<500)
[2019-08-20 06:29] LABS: ALBUMIN 1.9 GM/DL (3.2-5.2); ALT/SGPT 17 U/L (12-78); BILIRUBIN,TOTAL 0.5 MG/DL (0.2-1.0); BLOOD UREA NITROGEN 18 MG/DL (7-18); CALCIUM LEVEL 7.7 MG/DL (8.8-10.2); CARBON DIOXIDE LEVEL 27 MEQ/L (21-32); CHLORIDE LEVEL 102 MEQ/L (98-107); CREATININE FOR GFR 0.88 MG/DL (0.70-1.30); FERRITIN 1708 NG/ML (26-388); GLOMERULAR FILTRATION RATE > 60.0 (>42); GLUCOSE, FASTING 90 MG/DL (70-100); LDH LACTATE DEHYDROGENASE 345 U/L (87-241); MAGNESIUM LEVEL 2.6 MG/DL (1.8-2.4); NT-PRO BNP 1392 PG/ML (<125); POTASSIUM SERUM 4.2 MEQ/L (3.5-5.1); SODIUM LEVEL 135 MEQ/L (136-145); TOTAL PROTEIN 5.3 GM/DL (6.4-8.2); TRIGLYCERIDES LEVEL 152 MG/DL (<150); TROPONIN I < 0.02 NG/ML (< 0.10)
[2019-08-20 06:35] LABS: LYMPHOCYTES 3 % (16-44); MONOCYTES 3 % (0-5); NEUTROPHILS 94 % (28-66); PLATELET ESTIMATE NORMAL (NORMAL)
[2019-08-20] MEDS: SYMBICORT 160/4.5MCG INHALER 6GM INH SCH (07:44)
[2019-08-20] MEDS: cefTRIAXone SOD 1 GM in D5W MINI-BAG PLUS 50 ML IV SCH ×2 (07:57→20:44)
[2019-08-20] MEDS: ENOXAPARIN 60MG/0.6ML SYRINGE (J1650 PER 10MG) SC SCH ×2 (08:34→20:45)
[2019-08-20] MEDS: CALCIUM/VITAMIN D 500 MG TAB PO SCH (08:34)
[2019-08-20] MEDS: HYDROXYCHLOROQUINE 200 MG TAB PO SCH ×2 (08:34→20:44)
--- NOTE | 2019-08-20 11:56 | IPNPDOC ---
Text Note Date of Service The patient was seen on 08/20/19. NOTE Subjective: Patient continues to complains of generalized weakness and dry co ugh. His oxygen requirements around 5 L of oxygen. His fever subsided. No any acute events overnight. Objective: VITAL SIGNS: Please see below. GENERAL: awake, alert, NAD HEENT: NCAT, anicteric sclera, LINDEN NECK: supple, no JVD CARDIOVASCULAR EXAMINATION: NS1S2 RESPIRATORY EXAMINATION: Bilateral rhonchi at the bases ABDOMINAL EXAMINATION: positive bowel sounds x 4, NT EXTREMITIES: no cyanosis, clubbing, edema SKIN: warm, no rashes. NEUROLOGICAL EXAMINATION: AAO x 3, no motor/sensory deficits PSYCHIATRIC EXAMINATION: calm, normal affect Patient is 74 years old male with past history of COPD, hyperlipidemia presented hospital with cough, fever. Patient states that he has been having symptoms for past 4-5 days. PCP sent him for COVID 19 test, which came back positive. Today patient has been having increasing shortness of breath. In ER patient was found to have a right lung infiltrate on the chest x-ray, his oxygen saturation was 88% he was placed on that 3 L of oxygen via nasal cannula. Also patient was found to have fever, but no leukocytosis Problems (1) Sepsis Patient had dyspnea, tachycardia and fever on admission Secondary to viral infection. Fever subsided no leukocytosis IV fluid Azithromycin, hydroxychloroquine Tylenol, ibuprofen (2) Pneumonia Secondary to COVID 19. There is a bacterial coinfection given increased pro- calcitonin level. Ceftriaxone started on 08/19/19 Continue oxygen treatment. Azithromycin with hydroxychloroquine started, given oxygen saturation 88% Continue inhalers (3) Coronavirus infection Follow COVID 19 protocol Will monitor inflammatory markers, blood tests Due to increased oxygen requirements we started tocilizumab. Fever Secondary to sepsis to viral infection Tylenol, ibuprofen Plan / VTE VTE Prophylaxis Ordered?: Yes VS,Fishbone, I+O VS, Fishbone, I+O Laboratory Tests 08/19/19 14:15 08/19/19 19:31 08/20/19 05:45 Vital Signs Date Time Temp Pulse Resp B/P (MAP) Pulse Ox O2 Delivery O2 Flow Rate FiO2 08/20/19 10:00 106 30 91 Nasal Cannula 5.0 08/20/19 08:00 98.0 113/62 (79) I&O- Last 24 Hours up to 6 AM 08/20/19 06:00 Intake Total 1090 ml Output Total 1600 ml Balance -510 ml SHAHZAD MCCLENDON DO Aug 20, 2019 11:56
[2019-08-20] MEDS ORDERED: TOCILIZUMAB IV ONE ×4 (12:00)
[2019-08-20] MEDS ORDERED: FUROSEMIDE 20MG/2ML VIAL (J1940) IV ONE (12:00)
[2019-08-20] MEDS ORDERED: NS IV ONE ×4 (12:00)
[2019-08-20] MEDS: FORMOTEROL FUMARATE 20 MCG/2 ML INHALATION SOLUTION (PERFOROMIST) INH SCH ×2 (12:10→19:52)
[2019-08-20] MEDS: BUDESONIDE 0.5 MG/2 ML INHALATION SUSPENSION INH SCH ×2 (12:10→19:53)
--- NOTE | 2019-08-20 12:46 | CR ---
DATE OF CONSULTATION: 08/20/2019 REASON FOR CONSULTATION: COVID-19 infection with underlying community acquired pneumonia and hypoxia. ATTENDING PHYSICIAN: Dr. Sandoval Redding D.O. CONSULTING PHYSICIAN: Dr. Santo Barajas. HISTORY OF PRESENT ILLNESS: Mr. Hooper is a 74-year-old male who was recently admitted to [facility] for a chronic obstructive pulmonary disease (COPD) exacerbation in July. He had been discharged at home. Recently, he developed a cough. He stated that one of his family members had recently tested positive for COVID-19. The patient stated that he had symptoms for about 4-5 days at which point, he presented to his primary care physician's office and had received a COVID-19 test, which subsequently has returned positive. The patient began to develop worsening shortness of breath on 08/17/2019 and presented to the emergency room where he was found to have a right lung infiltrate on the chest x-ray. Additionally, his oxygen saturation was 88% on room air and he was titrated up with 3 liters nasal cannula. The patient states that he normally does not use supplemental oxygen at home. The patient was found to be febrile at the time on admission with a fever of 100.7. He was otherwise vitally stable. On admission, the patient was treated for suspected COVID-19 and was started on Plaquenil and azithromycin by the primary team. He had received weight-based Lovenox. The patient was started on HFA inhalers as well. Since his stay, his oxygen requirements have increased and he is currently on 5 liters nasal cannula with oxygen saturations between 89-90. Due to the patient's worsening condition and increasing oxygen requirements, pulmonary/critical care was consulted for further evaluation and management. PAST MEDICAL HISTORY: 1. Chronic obstructive pulmonary disease. 2. Hyperlipidemia. 3. Tobacco abuse. 4. Questionable congestive heart failure although no documentation in electronic medical record. PAST SURGICAL HISTORY: 1. Femoral artery stent placement. 2. Appendectomy. HOME MEDICATIONS: - aspirin - Symbicort - simvastatin INPATIENT MEDICATIONS: -Tocilizumab 800MG -Duoneb Q4H PRN -Perforomist 20mcg RBID -Pulmicort 0.5mg RBID -Ceftriaxone 1 gm Q12H -Advil 200 mg Q6H PRN -Oscal 1,000 mg Daily -Plaquenil 200 mg Q12H -Azithromycin 500 mg Q24H -Tylenol 650 mg Q4H PRN -Lovenox 50 mg Q12H -Aspirin 81 mg QHS -Ventolin 2 puff RBID ALLERGIES: No known drug allergies. SOCIAL HISTORY: Patient is a former smoker. He drinks alcohol on occasions. He denies any IV or illicit drug use. REVIEW OF SYSTEMS: CONSTITUTIONAL: Patient admitted to chills and fever on admissions. He currently admits to having sweats. HEENT: Patient admits to a cough that is dry. He also admits to some sputum production with increase in purulence. He denies any changes in vision. CARDIOVASCULAR: Patient denies any chest pain pressure. He denies any palpitations or feeling his heart racing. PULMONARY: Patient admits to shortness of breath more so than is normal. He admits to cough and sputum production. ABDOMINAL: Patient denies any abdominal pain, denies any nausea, vomiting, diarrhea or constipation. MUSCULOSKELETAL: Patient denies any muscle aches. He does admit to weakness. EXTREMITIES: Patient denies any increased swelling. He denies any pain or tenderness in his calves. SKIN: Patient denies any rash or lesions. NEUROLOGIC: Patient denies any change in speech or gait. PSYCHIATRIC: Patient denies any current depression or anxiety. GENITOURINARY: Patient denies any dysuria, urgency or frequency. PHYSICAL EXAMINATION: VITAL SIGNS: Temperature 98.0, pulse 108, respiratory rate 30, blood pressure 113/62, pulse oximetry 89% on 5 liters nasal cannula. GENERAL: The patient is awake, alert, oriented. He does not appear to be in any acute distress. He is lying in bed and appears comfortable. HEENT: Patient's head is atraumatic. Normocephalic. His eyes are anicteric. Trachea is midline. Mucous membranes appear pink and moist. Dentition is fair. CARDIOVASCULAR: There is a normal S1, S2, with a tachycardic rate with a regular rhythm. There is no clicks, rubs or murmurs, auscultated. PULMONARY: There is scattered crackles throughout worse in the bases. There is diminished breath sounds overall. Symmetric chest excursion. No accessory muscle use. ABDOMEN: Soft, nondistended. Nontender. No rebound tenderness or guarding. Normoactive bowel sounds. NEUROLOGIC: No focal neurological deficits. EXTREMITIES: No edema. Full and equal pulses bilateral upper and lower extremities. PSYCH: Mood and affect appear appropriate. LABORATORY DATA: Hematology: White blood cell 10.0, hemoglobin 12.5, hematocrit 38.0, platelet count 200. Chemistries: Sodium 135, potassium 4.2, chloride 102, CO2 27, BUN 18, creatinine 0.88. Fasting glucose 90. Calcium 7.7. Magnesium 2.6. Ferritin 1708. Total bilirubin 0.5. AST 47. ALT 17. Alkaline phosphatase 122. Lactic dehydrogenase 345. Troponin less than 0.02. CRP from 08/19/2019 33. NT proBNP 1392. Total protein 5.3, albumin 1.9, triglycerides 152, procalcitonin 2.22. Coagulation: PT 16.1, INR 1.32, PTT 50.9, fibrinogen 1270. D-dimer 31, 41, 0.53. Imaging from 08/17/2019, demonstrating patchy opacities in the right lung consistent with pneumonia. Small right-sided pleural effusion. Imaging from today: Portable chest x-ray is currently pending. ASSESSMENT/PLAN: Mr. Hooper is a 74-year-old man who presented to the [facility] emergency department with worsening shortness of breath. He has a history of chronic obstructive pulmonary disease (COPD) and of questionable congestive heart failure as well as a recent infection with COVID-19. He has been symptomatic for 4-5 days and has increasing shortness of breath while in the hospital. He has been started on Plaquenil and azithromycin per the primary team during his hospital stay and subsequently has been titrated up to 5 liters on nasal cannula. Pulmonary/critical medicine has been consulted on the case. PLAN: 1. Community acquired pneumonia with underlying COPD: The patient has chronic obstructive pulmonary disease. He was recently admitted to [facility] in July for similar findings. He currently has a right lower lobe infiltrate, which is likely a pneumonia with elevated procalcitonin 2.22. We recommend treatment of community acquired pneumonia with regards to Rocephin and azithromycin. Additionally, had been placed on HFA which had been insufficient in treating his current condition. He will be switched to nebulizers. It is understood that the patient is COVID positive, however, in light of his current condition, the proper treatment would be using nebulized medicine. 2. Suspected congestive heart failure exacerbation: Patient has no documented history of congestive heart failure in the medical record however, this has been suggested as it appears that on his July admission to [facility] his BNP was 78. Additionally, on 08/17/2019 his BNP was 250. Today on 08/20/2019, his BNP is currently 1392 suggesting that the patient likely is volume overloaded. On physical exam, he has bilateral diffuse crackles and difficulty lying flat. Patient also has received fluid resuscitation in the emergency room due to an elevated lactic acid. Patient is having increased oxygen requirement currently is at 5 liters nasal cannula. This may be secondary to congestive heart failure exacerbation. Although his hypoxia is likely multifactorial at this point. Will administer 20 mg of IV Lasix times one. Will also repeat a chest x-ray portable to assess patient's lung rodriguez for worsening of pulmonary edema. 3. Obstructive sleep apnea on CPAP. Patient has a history of obstructive sleep apnea. He is currently on CPAP, however, he is not fairly noncompliant with this. While inpatient, the patient does have his CPAP available. Would recommend use of this when sleeping and taking naps. 4. COVID-19 positive: Patient is COVID-19 positive. This is likely causing worsening exacerbation of his underlying COPD and also contributing to worsening of his current condition. His Hscore is currently 96 points. There is essentially a 1% risk of hemophagocytic syndrome. His ferritin continues to elevate. His fibrinogen remains at 1270 and his D-dimer is 3141. The patient is being properly anticoagulated with weight-based Lovenox at 0.5 mg/kg. At this point, he is receiving Plaquenil at 200 mg twice a day. He is currently on day 3 of 5. He is also receiving azithromycin additionally day 3 of 5 of that as well. Given the worsening of his oxygen requirements as well, the use of tocilizumab may be warranted. Patient is currently at approximately day 9 of his COVID infection. It appears from previous cases, that around day 10 is consistent with the cytokinin storm. Therefore, we anticipate that within the next 24 hours, the patient has a high likelihood of decompensating. We will add tocilizumab to the treatment regimen. Current dosing in the hospital was 400 mg, however, recent studies have indicated that 8 mg/kg dosing and this will be given to the patient today. Patient is also taking Lovenox for DVT prophylaxis as COVID-19 has been shown to be procoagulant. Will continue this weight-based dosing. 5. Deep venous thrombosis (DVT) prophylaxis: Patient is currently on Lovenox and will continue I was physically present for the entire interview and exam. I agree with the assessment and plan as outlined above. MTDD
--- NOTE | 2019-08-20 12:57 | REP ---
CHEST, PORTABLE: AP portable view of the chest is performed and compared to a prior study of 08/17/2019. Peripheral bilateral infiltrates are visualized. These have mildly increased on the left compared to 08/17/2019. There is mild increase in the right upper lobe with mild improvement of the right lower lobe since the prior study. Heart and mediastinum are unchanged in appearance. IMPRESSION: Bilateral peripheral infiltrates involving the upper and lower lung zones, mildly increased since prior study of 08/17/2019 although there is an area of improvement in the right lung base. Electronically Signed by Eliezer Aldana MD 08/20/2019 01:01 P
[2019-08-20] MEDS ORDERED: FUROSEMIDE 40MG/4ML VIAL (J1940) IV ONE (16:00)
[2019-08-20] MEDS: AZITHROMYCIN INJ 500 MG, VIAL MATE ADAPTER 1 EACH in D5W 250 ML IV SCH (17:39)
[2019-08-20 20:28] LABS: HEMATOCRIT 38.3 % (42.0-52.0); MEAN CORPUSCULAR HEMOGLOBIN 31.8 pg (27.0-33.0); MEAN CORPUSCULAR HGB CONC 33.9 g/dl (32.0-36.5); MEAN CORPUSCULAR VOLUME 93.6 fl (80.0-96.0); PLATELET COUNT, AUTOMATED 220 10^3/uL (150-450); RED BLOOD COUNT 4.09 10^6/uL (4.30-6.10); WHITE BLOOD COUNT 11.3 10^3/uL (4.0-10.0)
[2019-08-20] MEDS: ACETAMINOPHEN TAB 650MG DOSE (2X325MG) PO PRN (20:44)
[2019-08-20] MEDS: FUROSEMIDE 40MG/4ML VIAL (J1940) IV SCH (20:44)
[2019-08-20] MEDS: ASPIRIN 81 MG ENTERIC TAB PO SCH (20:45)
[2019-08-20 20:49] LABS: BLOOD UREA NITROGEN 21 MG/DL (7-18); CALCIUM LEVEL 8.2 MG/DL (8.8-10.2); CARBON DIOXIDE LEVEL 30 MEQ/L (21-32); CHLORIDE LEVEL 103 MEQ/L (98-107); CREATININE FOR GFR 0.98 MG/DL (0.70-1.30); FERRITIN 1855 NG/ML (26-388); GLOMERULAR FILTRATION RATE > 60.0 (>42); GLUCOSE, FASTING 111 MG/DL (70-100); LDH LACTATE DEHYDROGENASE 376 U/L (87-241); NT-PRO BNP 936 PG/ML (<125); POTASSIUM SERUM 4.2 MEQ/L (3.5-5.1); SODIUM LEVEL 138 MEQ/L (136-145); TRIGLYCERIDES LEVEL 207 MG/DL (<150); TROPONIN I < 0.02 NG/ML (< 0.10)
[2019-08-20 20:51] LABS: INR 1.27; PROTHROMBIN TIME 15.7 SECONDS (11.8-14.0)
[2019-08-20 20:52] LABS: PARTIAL THROMBOPLASTIN TIME 47.9 SECONDS (25.0-38.4)
[2019-08-20 20:54] LABS: D-DIMER QUANT 3288.96 ng/ml (<500)
[2019-08-20 21:07] LABS: ANISOCYTOSIS 1+; ATYPICAL LYMPH 2 % (0-5); EOSINOPHILS 1 % (0-3); LYMPHOCYTES 2 % (16-44); METAMYELOCYTES 1 % (0-0); NEUTROPHILS 86 % (28-66); PLATELET ESTIMATE NORMAL (NORMAL)
[2019-08-20 21:08] LABS: OVALOCYTES 1+; POIKILOCYTOSIS 1+; POLYCHROMASIA 1+
[2019-08-21] VITALS (45 sets, daily range): BP systolic 78–138; BP diastolic 52–76; O2SAT 89–94
[2019-08-21] MEDS: FUROSEMIDE 40MG/4ML VIAL (J1940) IV SCH (05:26)
[2019-08-21 06:15] LABS: HEMATOCRIT 39.3 % (42.0-52.0); HEMOGLOBIN 12.7 g/dl (13.5-17.5); MEAN CORPUSCULAR HEMOGLOBIN 30.1 pg (27.0-33.0); MEAN CORPUSCULAR HGB CONC 32.3 g/dl (32.0-36.5); MEAN CORPUSCULAR VOLUME 93.1 fl (80.0-96.0); PLATELET COUNT, AUTOMATED 224 10^3/uL (150-450); RED BLOOD COUNT 4.22 10^6/uL (4.30-6.10); WHITE BLOOD COUNT 10.2 10^3/uL (4.0-10.0)
[2019-08-21 06:26] LABS: INR 1.27; PROTHROMBIN TIME 15.6 SECONDS (11.8-14.0)
[2019-08-21 06:27] LABS: PARTIAL THROMBOPLASTIN TIME 45.3 SECONDS (25.0-38.4)
[2019-08-21 06:41] LABS: ATYPICAL LYMPH 2 % (0-5); LYMPHOCYTES 3 % (16-44); MONOCYTES 3 % (0-5); NEUTROPHILS 86 % (28-66)
[2019-08-21 06:42] LABS: ANISOCYTOSIS 1+; D-DIMER QUANT 3723.37 ng/ml (<500); PLATELET ESTIMATE NORMAL (NORMAL)
[2019-08-21 06:44] LABS: DOHLE BODIES 1+
[2019-08-21 06:49] LABS: ALBUMIN 1.9 GM/DL (3.2-5.2); ALT/SGPT 16 U/L (12-78); BILIRUBIN,TOTAL 0.5 MG/DL (0.2-1.0); BLOOD UREA NITROGEN 22 MG/DL (7-18); CARBON DIOXIDE LEVEL 29 MEQ/L (21-32); CHLORIDE LEVEL 102 MEQ/L (98-107); CREATININE FOR GFR 0.86 MG/DL (0.70-1.30); GLOMERULAR FILTRATION RATE > 60.0 (>42); GLUCOSE, FASTING 86 MG/DL (70-100); MAGNESIUM LEVEL 2.6 MG/DL (1.8-2.4); POTASSIUM SERUM 3.7 MEQ/L (3.5-5.1); SODIUM LEVEL 139 MEQ/L (136-145); TOTAL PROTEIN 5.4 GM/DL (6.4-8.2)
[2019-08-21 07:03] LABS: FERRITIN 2058 NG/ML (26-388); LDH LACTATE DEHYDROGENASE 441 U/L (87-241); NT-PRO BNP 456 PG/ML (<125); TRIGLYCERIDES LEVEL 300 MG/DL (<150)
[2019-08-21 07:30] LABS: HEPATITIS B CORE ANTIBODY IGG Negative (Negative)
[2019-08-21 08:19] LABS: ABG BASE EXCESS 4.4 (-2.0-2.0); ABG O2 SATURATION 91.2 % (95.0-99.0); ABG PARTIAL PRESSURE CO2 38.2 mmHg (35.0-45.0); ABG PARTIAL PRESSURE O2 59.3 mmHg (75.0-100.0); ABG STANDARD HCO3 28.3 MEQ/L (22.0-26.0); ABG TOTAL CO2 29.2 MEQ/L (23.0-31.0); ABG pH (ARTERIAL) 7.483 UNITS (7.350-7.450)
[2019-08-21] MEDS: FORMOTEROL FUMARATE 20 MCG/2 ML INHALATION SOLUTION (PERFOROMIST) INH SCH ×2 (08:20→20:00)
[2019-08-21] MEDS: BUDESONIDE 0.5 MG/2 ML INHALATION SUSPENSION INH SCH ×2 (08:21→20:00)
[2019-08-21] MEDS: ACETAMINOPHEN TAB 650MG DOSE (2X325MG) PO PRN ×2 (08:26→14:20)
[2019-08-21] MEDS: HYDROXYCHLOROQUINE 200 MG TAB PO SCH (08:26)
[2019-08-21] MEDS: ENOXAPARIN 60MG/0.6ML SYRINGE (J1650 PER 10MG) SC SCH ×2 (08:27→21:02)
[2019-08-21] MEDS: CALCIUM/VITAMIN D 500 MG TAB PO SCH (08:27)
[2019-08-21] MEDS: cefTRIAXone SOD 1 GM in D5W MINI-BAG PLUS 50 ML IV SCH ×2 (08:27→21:02)
[2019-08-21 09:03] LABS: HEPATITIS B SURFACE ANTIGEN NEGATIVE (NEGATIVE)
[2019-08-21] MEDS ORDERED: METOPROLOL 5 MG/5 ML VIAL As Ordered ONE ×2 (09:37→09:41)
[2019-08-21] MEDS ORDERED: AMIODARONE HCL 150 MG/100 ML PREMIXED BAG (NEXTERONE) (J0282 PER 30MG) As Ordered ONE (09:53)
[2019-08-21] MEDS ORDERED: POTASSIUM CHLORIDE 10 MEQ SR TABLET PO ONE (10:30)
--- NOTE | 2019-08-21 10:43 | CCN ---
DATE OF SERVICE: 08/21/2019 START TIME: 919 STOP TIME: 1004 I again attended Ricardo Hooper here in the intensive care unit. The patient has been examined and chart reviewed, and I spoke at length not only with the patient but the nurse and respiratory therapist at the bedside. Maximum temperature (Tmax) overnight 97.9, heart rate 90-100s, blood pressure 103-138, oxygen saturation varies between 88% and 94% and currently on bilateral positive airway pressure (BiPAP) 16 over 8 (which are his home settings) with 60% FIO2 bleed-in this morning. Intake and output (I and O) midnight to midnight 1260 mL in with 2250 mL out. He is already net negative about 1 liter so far today. Blood gas done this morning on the above BiPAP settings showed a pH of 7.483, PCO2 of 38.2, and pO2 of 59.3. Sodium 139, potassium of 3.7, chloride 102, CO2 27, BUN 22, creatinine 0.86, white blood cell count 10.2, hemoglobin 12.7, platelet count 224,000, 86% segmented neutrophils, 6% bands. No new microbiology data available. Blood cultures from 08/17/2019 remain negative. At the time of my entry into the room, he went into atrial fibrillation (AFib) with rapid ventricular response. Heart rate approximately 170s. Blood pressure in the 90s. He had been given intravenous (IV) Lopressor by Dr. Redding. Blood pressure dropped into the 70s. Despite this, the patient was awake, alert, and appropriate, and was conversant with me the entire time. He denied any chest pain. Heart rate only slowed to the 150s. He was then given 150 mg of intravenous amiodarone. After approximately 10 minutes, he is converted to normal sinus rhythm with the rate in the 80s. Oxygen saturation remained 86% to 88%. We did increase the expiratory pressures on his BiPAP to 12. Currently saturating again 88% to 90%. After conversion back to atrial fibrillation, he remains awake, alert, appropriate. He denies chest pain. Pupils reactive. Sclerae clear. Trachea is in the midline. Chest is fairly clear anteriorly. There are dependent crackles with some egophony at the right base. No wheezing. Cardiovascular examination: After his conversion is regular with no gallop. Peripheral pulses are diminished but easily palpable, and there is at least 1+ edema. Abdomen: Obese, soft, with active bowel sounds. No convincing organomegaly or masses. Extremities: Without cyanosis or clubbing. Neurologically, he is awake, alert, appropriate. Psychiatric: With normal mood and affect. The most pressing problems requiring my immediate presence at the bedside: 1. Atrial fibrillation (AFib) with rapid ventricular response. 2. Hypoxemic respiratory failure, multifactorial. 3. Community-acquired pneumonia. 4. COVID-19 positive disease. 5. Obstructive sleep apnea syndrome with recent noncompliance. 6. Advanced obstructive lung disease with variable compliance. 7. Underlying diabetes mellitus. At this point, we will continue as outlined above. I had a very lengthy discussion with the patient concerning his status. At this point, his oxygenation status is marginal, but he is comfortable. He did receive Actemra yesterday, as he was day #10, and part of his issue certainly may have been cytokine storm. He certainly was also volume overloaded, as his brain natriuretic peptide (BNP) which reached maximum of 1392 is down to 456 today after the above diuresis. We will change his Lasix to daily. We will replete his electrolytes as needed. From an infectious disease standpoint, we will continue his current antimicrobials for his underlying pneumonia. He is back on his inhalers for his underlying obstructive lung disease and will get aerosols as needed. From a standpoint regarding his COVID-19 disease, we will stop his Plaquenil in view of his rhythm break. He remains in a negative pressure room with full precautions being taken regarding his communicable process. He remains on ulcer and deep venous thrombosis (DVT) prophylaxis. His D-dimer today 3723, only minimally up from yesterday. At this point, he still has a very high likelihood of compromise, but as long as he is maintaining his oxygenation status and his work of breathing remains reasonable, hopefully we will be able to avoid endotracheal intubation and formal mechanical ventilation. The patient is in full agreement with this plan but is agreeable to full support if needed. We will proceed as outlined above. I left the bedside at 1004 hours. A total of 44 minutes of critical care time delivered at the bedside, not including procedures.
[2019-08-21] MEDS ORDERED: METOPROLOL 5 MG/5 ML VIAL IV STA (11:05)
[2019-08-21] MEDS ORDERED: AMIODARONE HCL 150 MG in IV 1 EA IV STA (11:06)
[2019-08-21 11:43] LABS: CK-MB VALUE MASS 1.1 NG/ML (<3.6); CPK CREATINE PHOSPHOKINASE 58 U/L (39-308); TROPONIN I < 0.02 NG/ML (< 0.10)
[2019-08-21] MEDS ORDERED: METOPROLOL 5 MG/5 ML VIAL IV PRN (13:00)
--- NOTE | 2019-08-21 13:05 | ECGEPIP ---
[facility] Test Date: 2019-08-21 Pat Name: AMADOR RAYA Department: Room: [place] [address] Gender: Male Podiatry Doctor: GILBERTO : 1945 Requested By: SHAHZAD MCCLENDON Order Number: [id number] Reading MD: Adrián Cuellar Measurements Intervals [place] Rate: 86 P: 55 [place]: 172 QRS: 27 QRSD: 107 T: 21 QT: 369 QTc: 442 Interpretive Statements SINUS RHYTHM WITH VENTRICULAR PREMATURE COMPLEX 1 PVC new compared with 08/18/2019. Electronically Signed on 08-21-2019 13:05:43 EDT by Adrián Cuellar
--- NOTE | 2019-08-21 13:07 | IPNPDOC ---
Text Note Date of Service The patient was seen on 08/21/19. NOTE Subjective: Patient oxygen requirements progressively increased, currently he is on the BiPAP. Around 10 AM patient developed atrial fibrillation with rapid ventricular rate, he received IV metoprolol resolved positive effect, then dose of amiodarone 150 mg then patient converted to sinus rhythm. Objective: VITAL SIGNS: Please see below. GENERAL: awake, alert, breathing through BiPAP HEENT: NCAT, anicteric sclera, LINDEN NECK: supple, no JVD CARDIOVASCULAR EXAMINATION: NS1S2 RESPIRATORY EXAMINATION: Bilateral rales at the bases ABDOMINAL EXAMINATION: positive bowel sounds x 4, NT EXTREMITIES: no cyanosis, clubbing, edema SKIN: warm, no rashes. NEUROLOGICAL EXAMINATION: AAO x 3, no motor/sensory deficits PSYCHIATRIC EXAMINATION: Anxious Patient is 74 years old male with past history of COPD, hyperlipidemia presented hospital with cough, fever. Patient states that he has been having symptoms for past 4-5 days. PCP sent him for COVID 19 test, which came back positive. Today patient has been having increasing shortness of breath. In ER patient was found to have a right lung infiltrate on the chest x-ray, his oxygen saturation was 88% he was placed on that 3 L of oxygen via nasal cannula. Also patient was found to have fever, but no leukocytosis. Problems (1) Sepsis Patient had dyspnea, tachycardia and fever on admission Secondary to viral infection. Fever subsided 48 hours ago no leukocytosis IV fluid Continue Azithromycin hydroxychloroquine discontinued due to cardiac arrhythmia Patient received 1 dose of tocilizumab yesterday Tylenol, ibuprofen Pneumonia Secondary to COVID 19. There is a bacterial coinfection given increased pro- calcitonin level. Ceftriaxone started on 08/19/19 Continue azithromycin Patient breathing status progressively declined, for past 12 hours patient was on the BiPAP. Continue inhalers Acute hypoxemic respiratory failure Patient developed acute hypoxemic respiratory failure secondary to pneumonia due to COVID 19 with bacterial coinfection Currently patient stable on the BiPAP, there is a high possibility that he will need intubation. His respiratory failure superimposed with underlying COPD and obesity Patient received Lasix 40 mg IV for possible volume overload given elevated BNP Coronavirus infection Follow COVID 19 protocol -monitor inflammatory markers, blood tests Patient received tocilizumab yesterday Fever Resolved currently Secondary to sepsis to viral infection Tylenol, ibuprofen Atrial fibrillation with rapid ventricular rate Heart rate is under control after amiodarone 150 mg IV Patient receives anticoagulation with therapeutic dose Lovenox. Most likely patient developed cardiac arrhythmia due to Hydrochloroquine, which was dc. Metoprolol IV when necessary Plan / VTE VTE Prophylaxis Ordered?: Yes VS,Fishbone, I+O VS, Fishbone, I+O Laboratory Tests 08/20/19 20:09 08/21/19 05:06 Vital Signs Date Time Temp Pulse Resp B/P (MAP) Pulse Ox O2 Delivery O2 Flow Rate FiO2 08/21/19 10:18 85 106/60 (75) 87 NIPPV (BIPAP/CPAP) 60 08/21/19 09:40 32 08/21/19 08:00 98.3 08/21/19 04:00 15.0 I&O- Last 24 Hours up to 6 AM 08/21/19 06:00 Intake Total 1260 ml Output Total 2810 ml Balance -1550 ml SHAHZAD MCCLENDON DO Aug 21, 2019 13:07
[2019-08-21] MEDS: AZITHROMYCIN INJ 500 MG, VIAL MATE ADAPTER 1 EACH in D5W 250 ML IV SCH (17:55)
[2019-08-21 19:05] LABS: INR 1.08; PROTHROMBIN TIME 13.7 SECONDS (11.8-14.0)
[2019-08-21 19:06] LABS: PARTIAL THROMBOPLASTIN TIME 38.8 SECONDS (25.0-38.4)
[2019-08-21 19:08] LABS: D-DIMER QUANT 3918.77 ng/ml (<500)
[2019-08-21 19:34] LABS: FERRITIN 2699 NG/ML (26-388); LDH LACTATE DEHYDROGENASE 427 U/L (87-241); NT-PRO BNP 226 PG/ML (<125); TRIGLYCERIDES LEVEL 440 MG/DL (<150); TROPONIN I < 0.02 NG/ML (< 0.10)
[2019-08-21 20:02] LABS: HEMOGLOBIN 13.4 g/dl (13.5-17.5); MEAN CORPUSCULAR HEMOGLOBIN 30.2 pg (27.0-33.0); MEAN CORPUSCULAR HGB CONC 31.9 g/dl (32.0-36.5); MEAN CORPUSCULAR VOLUME 94.6 fl (80.0-96.0); PLATELET COUNT, AUTOMATED 283 10^3/uL (150-450); RED BLOOD COUNT 4.44 10^6/uL (4.30-6.10); WHITE BLOOD COUNT 9.8 10^3/uL (4.0-10.0)
[2019-08-21 20:42] LABS: LYMPHOCYTES 6 % (16-44); MONOCYTES 1 % (0-5); MYELOCYTES 1 % (0-0); NEUTROPHILS 87 % (28-66)
[2019-08-21 20:45] LABS: PLATELET ESTIMATE NORMAL (NORMAL)
[2019-08-21 20:46] LABS: ANISOCYTOSIS 1+; POIKILOCYTOSIS 1+; POLYCHROMASIA 1+
[2019-08-21] MEDS: ASPIRIN 81 MG ENTERIC TAB PO SCH (21:02)
[2019-08-22] VITALS (28 sets, daily range): BP systolic 115–166; BP diastolic 57–76; O2SAT 90–94
[2019-08-22] MEDS: ACETAMINOPHEN TAB 650MG DOSE (2X325MG) PO PRN ×3 (00:46→23:12)
[2019-08-22 05:21] LABS: HEMATOCRIT 39.9 % (42.0-52.0); HEMOGLOBIN 12.8 g/dl (13.5-17.5); MEAN CORPUSCULAR HGB CONC 32.1 g/dl (32.0-36.5); MEAN CORPUSCULAR VOLUME 93.4 fl (80.0-96.0); PLATELET COUNT, AUTOMATED 282 10^3/uL (150-450); RED BLOOD COUNT 4.27 10^6/uL (4.30-6.10); WHITE BLOOD COUNT 8.1 10^3/uL (4.0-10.0)
[2019-08-22 05:42] LABS: ATYPICAL LYMPH 2 % (0-5); LYMPHOCYTES 6 % (16-44); MONOCYTES 3 % (0-5); PLATELET ESTIMATE NORMAL (NORMAL)
[2019-08-22 05:43] LABS: NEUTROPHILS 86 % (28-66)
[2019-08-22 05:44] LABS: ALBUMIN 1.9 GM/DL (3.2-5.2); ALT/SGPT 22 U/L (12-78); ANISOCYTOSIS 1+; BILIRUBIN,TOTAL 0.3 MG/DL (0.2-1.0); BLOOD UREA NITROGEN 26 MG/DL (7-18); CALCIUM LEVEL 8.1 MG/DL (8.8-10.2); CARBON DIOXIDE LEVEL 29 MEQ/L (21-32); CHLORIDE LEVEL 103 MEQ/L (98-107); CREATININE FOR GFR 0.76 MG/DL (0.70-1.30); GLOMERULAR FILTRATION RATE > 60.0 (>42); GLUCOSE, FASTING 100 MG/DL (70-100); MAGNESIUM LEVEL 2.6 MG/DL (1.8-2.4); POIKILOCYTOSIS 1+; POLYCHROMASIA 1+; POTASSIUM SERUM 4.4 MEQ/L (3.5-5.1); SODIUM LEVEL 138 MEQ/L (136-145); TOTAL PROTEIN 5.4 GM/DL (6.4-8.2)
[2019-08-22] MEDS: cefTRIAXone SOD 1 GM in D5W MINI-BAG PLUS 50 ML IV SCH ×2 (08:23→20:40)
[2019-08-22] MEDS: FUROSEMIDE 40MG/4ML VIAL (J1940) IV SCH (08:24)
[2019-08-22] MEDS: CALCIUM/VITAMIN D 500 MG TAB PO SCH (08:24)
[2019-08-22] MEDS: ENOXAPARIN 60MG/0.6ML SYRINGE (J1650 PER 10MG) SC SCH ×2 (08:25→20:41)
[2019-08-22] MEDS: FORMOTEROL FUMARATE 20 MCG/2 ML INHALATION SOLUTION (PERFOROMIST) INH SCH ×2 (08:33→19:40)
[2019-08-22] MEDS: BUDESONIDE 0.5 MG/2 ML INHALATION SUSPENSION INH SCH ×2 (08:33→19:40)
[2019-08-22 09:40] LABS: INR 1.21
[2019-08-22 09:41] LABS: PARTIAL THROMBOPLASTIN TIME 40.2 SECONDS (25.0-38.4)
[2019-08-22 09:42] LABS: D-DIMER QUANT 3934.25 ng/ml (<500)
--- NOTE | 2019-08-22 10:16 | CCN ---
DATE: 08/22/2019 START TIME: 855 STOP TIME: 930 I again attended Ricardo Hooper here in the intensive care unit. The patient has been examined and the chart reviewed. I spoke at length with the nurse at the bedside as well as Dr. Redding from the hospitalist service. T-max overnight 97.3, blood pressure 120 to 150 systolic, heart rate 80s to the 100s with a sinus mechanism, respiratory rate generally in the mid 20s without accessory muscle use. Ins and outs midnight to midnight, 1235 mL in with 1940 mL out. Other laboratories show a white blood cell count of 8.1, hemoglobin 12.8 and platelet count 282,000 with 86% segs and 3% bands. Sodium 138, potassium 4.4, chloride 103, CO2 29, BUN 26, creatinine 0.76. Albumin 1.9. Inflammatory markers are pending. On exam, his BiPAP is in place. He is ventilating well with it. He moves tidal volumes between 600 and 650 mL on his own. He is awake, alert and appropriate, in good spirits, and easily conversant underneath the mask. Pupils react. Sclerae are clear. Trachea is in the midline. Jugular venous system difficult to assess. Chest is fairly clear anteriorly. There is some basilar crackles dependently, but no convincing rhonchus. No wheeze. No other focal adventitious breath sounds are identified. Cardiac exam is regular with no gallop. Peripheral pulses are palpable with minimal edema at best. Abdomen obese, soft, with active bowel sounds. No convincing organomegaly or masses. Extremities show no cyanosis or clubbing. Neurologically, he is awake, alert and appropriate. He is somewhat weak, but moves all extremities easily. Psychiatric generally with normal mood and affect. The most pressing problems requiring my presence at the bedside: 1. Hypoxemic respiratory failure, multifactorial. 2. COVID-19 infection with suspected early acute respiratory distress syndrome (ARDS). 3. Congestive heart failure. 4. Community acquired pneumonia. 5. Obstructive sleep apnea with variable complaints. 6. Advanced obstructive lung disease, again, with noncompliance as an outpatient. 7. Atrial fibrillation with rapid ventricular response, responded to amiodarone and Lopressor. At this point, he continues with his multiorgan dysfunction, but has shown no decompensation over the last 24 hours. He is briefly taken off the mask for sips of liquids to help from a nutritional standpoint and he does desaturate with that, but quickly recovers once the noninvasive mask is put back in place. He is quite comfortable at this point. In view of the above, at this point, I would continue with noninvasive support as he is adequately ventilating and adequately oxygenating and is able to assist with his care, which is preventing deconditioning. He remains on ulcer and deep vein thrombosis (DVT) prophylaxis. He remains on Rocephin and azithromycin for his community acquired pneumonia. His inhalers are in place for his lung disease. He remains on low dose diuretics. At this point, he remains critically ill and there is still certainly a very high likelihood of further decompensation, but for now will proceed as outlined above. I discussed this plan of care and prognosis with him and he is in full agreement and conveys understanding. I left the bedside at 0931 hours. 35 minutes of critical care delivered at the bedside, not including procedures.
[2019-08-22 10:24] LABS: C REACTIVE PROTEIN QUANTITATIV 16.9 MG/DL (0.00-0.30); FERRITIN 3125 NG/ML (26-388); LDH LACTATE DEHYDROGENASE 478 U/L (87-241); NT-PRO BNP 141 PG/ML (<125); TRIGLYCERIDES LEVEL 365 MG/DL (<150)
--- NOTE | 2019-08-22 10:34 | IPNPDOC ---
Text Note Date of Service The patient was seen on 08/22/19. NOTE Subjective: No any acute events overnight. Patient still has high oxygen requ irements and his currently on the BiPAP. No fever for past 24 hours Objective: VITAL SIGNS: Please see below. GENERAL: awake, alert, breathing through BiPAP HEENT: NCAT, anicteric sclera, LINDEN NECK: supple, no JVD CARDIOVASCULAR EXAMINATION: NS1S2 RESPIRATORY EXAMINATION: Bilateral rales at the bases ABDOMINAL EXAMINATION: positive bowel sounds x 4, NT EXTREMITIES: no cyanosis, clubbing, edema SKIN: warm, no rashes. NEUROLOGICAL EXAMINATION: AAO x 3, no motor/sensory deficits PSYCHIATRIC EXAMINATION: Anxious Patient is 74 years old male with past history of COPD, hyperlipidemia presented hospital with cough, fever. Patient states that he has been having symptoms for past 4-5 days. PCP sent him for COVID 19 test, which came back positive. Today patient has been having increasing shortness of breath. In ER patient was found to have a right lung infiltrate on the chest x-ray, his oxygen saturation was 88% he was placed on that 3 L of oxygen via nasal cannula. Also patient was found to have fever, but no leukocytosis. Problems (1) Sepsis Patient had dyspnea, tachycardia and fever on admission Secondary to viral infection. Fever subsided no leukocytosis IV fluid Continue Azithromycin hydroxychloroquine discontinued due to cardiac arrhythmia Patient received 1 dose of tocilizumab yesterday Tylenol, ibuprofen Pneumonia Secondary to COVID 19. There is a bacterial coinfection given increased pro- calcitonin level. Ceftriaxone started on 08/19/19 Continue azithromycin Continue BiPAP Continue inhalers Acute hypoxemic respiratory failure Patient developed acute hypoxemic respiratory failure secondary to pneumonia due to COVID 19 with bacterial coinfection Currently patient stable on the BiPAP, hopefully we will avoid intubation. His respiratory failure superimposed with underlying COPD and obesity Coronavirus infection Follow COVID 19 protocol -monitor inflammatory markers, blood tests Patient received tocilizumab Fever Resolved currently Secondary to sepsis to viral infection Tylenol, ibuprofen Atrial fibrillation with rapid ventricular rate Heart rate is under control Patient receives anticoagulation with therapeutic dose Lovenox. Most likely patient developed cardiac arrhythmia due to Hydrochloroquine, which was dc. Metoprolol IV when necessary Plan / VTE VTE Prophylaxis Ordered?: Yes VS,Fishbone, I+O VS, Fishbone, I+O Laboratory Tests 08/21/19 18:30 08/22/19 05:00 Vital Signs Date Time Temp Pulse Resp B/P (MAP) Pulse Ox O2 Delivery O2 Flow Rate FiO2 08/22/19 09:00 100 31 145/70 (95) 92 NIPPV (BIPAP/CPAP) 60 08/22/19 08:00 97.2 08/21/19 04:00 15.0 I&O- Last 24 Hours up to 6 AM 08/22/19 06:00 Intake Total 1235 ml Output Total 1005 ml Balance 230 ml SHAHZAD MCCLENDON DO Aug 22, 2019 10:34
[2019-08-22] MEDS: AZITHROMYCIN INJ 500 MG, VIAL MATE ADAPTER 1 EACH in D5W 250 ML IV SCH (17:27)
[2019-08-22 20:27] LABS: HEMATOCRIT 38.8 % (42.0-52.0); HEMOGLOBIN 12.5 g/dl (13.5-17.5); MEAN CORPUSCULAR HGB CONC 32.2 g/dl (32.0-36.5); MEAN CORPUSCULAR VOLUME 93.3 fl (80.0-96.0); PLATELET COUNT, AUTOMATED 282 10^3/uL (150-450); RED BLOOD COUNT 4.16 10^6/uL (4.30-6.10); WHITE BLOOD COUNT 8.6 10^3/uL (4.0-10.0)
[2019-08-22 20:37] LABS: INR 1.16; PROTHROMBIN TIME 14.6 SECONDS (11.8-14.0)
[2019-08-22 20:38] LABS: PARTIAL THROMBOPLASTIN TIME 36.7 SECONDS (25.0-38.4)
[2019-08-22] MEDS: ASPIRIN 81 MG ENTERIC TAB PO SCH (20:40)
[2019-08-22 20:41] LABS: D-DIMER QUANT 3986.33 ng/ml (<500)
[2019-08-22 20:59] LABS: ATYPICAL LYMPH 1 % (0-5); BASOPHILS 1 % (0-1); EOSINOPHILS 3 % (0-3); LYMPHOCYTES 9 % (16-44); METAMYELOCYTES 2 % (0-0); MONOCYTES 3 % (0-5); NEUTROPHILS 81 % (28-66)
[2019-08-22 21:00] LABS: PLATELET ESTIMATE NORMAL (NORMAL); TOXIC VACUOLATION 2+
[2019-08-22 21:01] LABS: PLATELET CLUMPS SMALL AMT
[2019-08-22 21:16] LABS: FERRITIN 3423 NG/ML (26-388); LDH LACTATE DEHYDROGENASE 558 U/L (87-241); NT-PRO BNP 113 PG/ML (<125); TRIGLYCERIDES LEVEL 342 MG/DL (<150)
[2019-08-23] VITALS (19 sets, daily range): BP systolic 109–156; BP diastolic 56–72; O2SAT 88–94
[2019-08-23] MEDS: FORMOTEROL FUMARATE 20 MCG/2 ML INHALATION SOLUTION (PERFOROMIST) INH SCH ×2 (08:09→19:43)
[2019-08-23] MEDS: BUDESONIDE 0.5 MG/2 ML INHALATION SUSPENSION INH SCH ×2 (08:09→19:43)
[2019-08-23 08:16] LABS: HEMATOCRIT 41.1 % (42.0-52.0); MEAN CORPUSCULAR HEMOGLOBIN 29.8 pg (27.0-33.0); MEAN CORPUSCULAR HGB CONC 31.6 g/dl (32.0-36.5); MEAN CORPUSCULAR VOLUME 94.3 fl (80.0-96.0); PLATELET COUNT, AUTOMATED 296 10^3/uL (150-450); RED BLOOD COUNT 4.36 10^6/uL (4.30-6.10); WHITE BLOOD COUNT 7.8 10^3/uL (4.0-10.0)
[2019-08-23] MEDS: cefTRIAXone SOD 1 GM in D5W MINI-BAG PLUS 50 ML IV SCH ×2 (08:19→19:36)
[2019-08-23] MEDS: CALCIUM/VITAMIN D 500 MG TAB PO SCH (08:21)
[2019-08-23] MEDS: ENOXAPARIN 60MG/0.6ML SYRINGE (J1650 PER 10MG) SC SCH ×2 (08:21→19:35)
[2019-08-23] MEDS: FUROSEMIDE 40MG/4ML VIAL (J1940) IV SCH (08:21)
[2019-08-23 08:31] LABS: INR 1.12; PROTHROMBIN TIME 14.1 SECONDS (11.8-14.0)
[2019-08-23 08:32] LABS: PARTIAL THROMBOPLASTIN TIME 37.3 SECONDS (25.0-38.4)
[2019-08-23 08:38] LABS: FIBRINOGEN 1052 MG/DL (221-452)
[2019-08-23 08:51] LABS: BLOOD UREA NITROGEN 23 MG/DL (7-18); CREATININE FOR GFR 0.79 MG/DL (0.70-1.30); D-DIMER QUANT > 4000.0 ng/ml (<500); GLUCOSE, FASTING 93 MG/DL (70-100)
[2019-08-23 08:52] LABS: ALT/SGPT 63 U/L (12-78); BILIRUBIN,TOTAL 0.3 MG/DL (0.2-1.0); CALCIUM LEVEL 8.3 MG/DL (8.8-10.2); CARBON DIOXIDE LEVEL 30 MEQ/L (21-32); CHLORIDE LEVEL 100 MEQ/L (98-107); GLOMERULAR FILTRATION RATE > 60.0 (>42); MAGNESIUM LEVEL 2.8 MG/DL (1.8-2.4); POTASSIUM SERUM 3.9 MEQ/L (3.5-5.1); SODIUM LEVEL 138 MEQ/L (136-145); TOTAL PROTEIN 6.5 GM/DL (6.4-8.2); TROPONIN I < 0.02 NG/ML (< 0.10)
[2019-08-23 09:13] LABS: FERRITIN 4505 NG/ML (26-388); LDH LACTATE DEHYDROGENASE 573 U/L (87-241); NT-PRO BNP 82 PG/ML (<125); TRIGLYCERIDES LEVEL 316 MG/DL (<150)
[2019-08-23] MEDS: IPRATROPIUM 0.5MG/ALBUTEROL 2.5MG INH SOL UD 3ML (DUONEB)(J7620) NEB PRN ×2 (11:18→15:03)
--- NOTE | 2019-08-23 12:32 | IPNPDOC ---
Text Note Date of Service The patient was seen on 08/23/19. NOTE Subjective: No any acute events overnight. Patient still has high oxygen requ irements and his currently on the BiPAP. Patient is able to drink Ensure. No fever for past 24 hours Objective: VITAL SIGNS: Please see below. GENERAL: awake, alert, breathing through BiPAP HEENT: NCAT, anicteric sclera, LINDEN NECK: supple, no JVD CARDIOVASCULAR EXAMINATION: NS1S2 RESPIRATORY EXAMINATION: Bilateral rales at the bases ABDOMINAL EXAMINATION: positive bowel sounds x 4, NT EXTREMITIES: no cyanosis, clubbing, edema SKIN: warm, no rashes. NEUROLOGICAL EXAMINATION: AAO x 3, no motor/sensory deficits PSYCHIATRIC EXAMINATION: Anxious Patient is 74 years old male with past history of COPD, hyperlipidemia presented hospital with cough, fever. Patient states that he has been having symptoms for past 4-5 days. PCP sent him for COVID 19 test, which came back positive. Today patient has been having increasing shortness of breath. In ER patient was found to have a right lung infiltrate on the chest x-ray, his oxygen saturation was 88% he was placed on that 3 L of oxygen via nasal cannula. Also patient was found to have fever, but no leukocytosis. Problems (1) Sepsis Patient had dyspnea, tachycardia and fever on admission Secondary to viral infection. Fever subsided no leukocytosis IV fluid Continue Azithromycin hydroxychloroquine discontinued due to cardiac arrhythmia Patient received 1 dose of tocilizumab yesterday Tylenol, ibuprofen Pneumonia Secondary to COVID 19. There is a bacterial coinfection given increased pro- calcitonin level. Ceftriaxone started on 08/19/19 Continue azithromycin Continue BiPAP Continue inhalers Acute hypoxemic respiratory failure Patient developed acute hypoxemic respiratory failure secondary to pneumonia due to COVID 19 with bacterial coinfection Currently patient stable on the BiPAP, hopefully we will avoid intubation. His respiratory failure superimposed with underlying COPD and obesity Coronavirus infection Follow COVID 19 protocol -monitor inflammatory markers, blood tests Patient received tocilizumab Fever Resolved currently Secondary to sepsis to viral infection Tylenol, ibuprofen Atrial fibrillation with rapid ventricular rate Heart rate is under control Patient receives anticoagulation with therapeutic dose Lovenox. Most likely patient developed cardiac arrhythmia due to Hydrochloroquine, which was dc. Metoprolol IV when necessary Plan / VTE VTE Prophylaxis Ordered?: Yes VS,Fishbone, I+O VS, Fishbone, I+O Laboratory Tests 08/22/19 20:17 08/23/19 07:46 Vital Signs Date Time Temp Pulse Resp B/P (MAP) Pulse Ox O2 Delivery O2 Flow Rate FiO2 08/23/19 11:20 91 BIPAP/CPAP 60 08/23/19 11:00 98 32 08/23/19 08:00 97.7 127/58 (81) 08/21/19 04:00 15.0 I&O- Last 24 Hours up to 6 AM 08/23/19 06:00 Intake Total 805 ml Output Total 1875 ml Balance -1070 ml SHAHZAD MCCLENDON DO Aug 23, 2019 12:32
[2019-08-23] MEDS: SLF 3 ML SYR IV SCH ×2 (14:00→22:00)
[2019-08-23] MEDS ORDERED: SLF 3 ML SYR IV PRN (15:00)
--- NOTE | 2019-08-23 17:08 | CCN ---
DATE: 08/23/2019 SUBJECTIVE: Mr. Hooper was seen and examined today. Currently has had no adverse events reported overnight. He does remain on bilevel positive airway pressure (BiPAP) with an FiO2 of 60% and oxygen saturations of 91%. He currently does not complain of any increased shortness of breath. His BiPAP settings remain with an IPAP of 16, EPAP of 12. The patient has been unable to eat due to the BiPAP in place and nutrition was discussed. The patient was able to sip Ensure through his BiPAP without breaking seal. He has remained afebrile overnight with a maximum temperature (T max) of 98.8. OBJECTIVE: VITAL SIGNS: Temperature 98.8, pulse 122, respiratory rate 32, blood pressure 126/59, pulse oximetry 89% on BiPAP with an FiO2 of 60%. GENERAL: The patient is awake, alert, oriented. He does not appear in acute distress; however, he does appear critically ill. He has BiPAP in place. He responds to questions appropriately. HEENT: Atraumatic, normocephalic. As stated previously, BiPAP in place. CARDIOVASCULAR: Slightly tachycardic, regular rhythm. No clicks, rubs, murmurs. RESPIRATORY: Patient has coarse breath sounds throughout. There is symmetric chest expansion. No accessory muscle use; however, appears somewhat labored breathing. ABDOMEN: Soft, nondistended, nontender. Patient has somewhat hypoactive bowel sounds. EXTREMITIES: No edema. Full equal pulses bilateral lower extremities. LABORATORY DATA: Hematology - white blood cells 7.8, hemoglobin 13.0, hematocrit 41.1, platelet count 296. Chemistries: Sodium 138, potassium 3.9, chloride 100, carbon dioxide 30, BUN 23, creatinine 0.79, fasting glucose 93. Calcium 8.3. Magnesium 2.8. Ferritin 4505. Total bilirubin 0.3, AST 257, ALT 63, alkaline phosphatase 134. Lactate dehydrogenase 573. Troponin less than 0.02. NT-pro-BNP 82. Total protein 6.5, albumin 2.0. Triglycerides 316. Fibrinogen 1502, D-dimer greater than 4000. ASSESSMENT AND PLAN: Mr. Hooper is a 74-year-old male with underlying chronic obstructive pulmonary disease (COPD) who presented to the [facility] Emergency Department with worsening shortness of breath. He was found to be COVID positive as well as having a bacterial coinfection and COPD exacerbation. The patient received diuresis recently for congestive heart failure (CHF) exacerbation as well. On day 8 of his COVID infection, he had clinical deterioration requiring BiPAP support, currently with a PaO2 to FiO2 ratio of 1:1. 1. Hypoxemic respiratory failure, multifactorial. Patient has hypoxemic respiratory failure. This is likely secondary to a combination of both COVID-19 viral pneumonia as well as an underlying COPD exacerbation with a right lower lobe pneumonia and a recent CHF exacerbation. In regards to his hypoxemia, he has been placed on BiPAP. He is taking decent tidal volumes and has been fairly status quo. However, given his PaO2:FiO2 ratio of essentially 1:1, he is considered severe acute respiratory distress syndrome (ARDS) at this point, and has likely increased risk of further clinical deterioration. At this point, will continue BiPAP as the patient appears to be doing well with this mode of ventilation. 2. COVID-19 infection with acute respiratory distress syndrome. As stated previously, the patient has COVID-19 infection, which has subsequently led to a severe acute respiratory distress syndrome. This occurred on approximately day 8 to 9 of his infection. The patient was previously placed on Plaquenil and azithromycin. His Plaquenil was discontinued as he had developed atrial fibrillation with rapid ventricular response (RVR), and although it is not a ventricular arrhythmia, it was thought that Plaquenil being arrhythmogenic in regards to prolonged QT, may have been an exacerbating factor in the setting of his chronic pulmonary disease. The patient had received four out of the five days of his Plaquenil. He is currently still on azithromycin as he does have an underlying community-acquired pneumonia as well. The patient had recently received tocilizumab, which is an il-6 inhibitor. He received 8 mg per kg dosing of this. The patient continues to be at high risk of clinical deterioration. He has been fairly status quo; however, there has been speculation as to whether the patient would benefit from convalescent plasma as the research is very limited. However, there is investigational drug applications for this. Given his serious clinical status, he likely would benefit from convalescent plasma. One small study has suggested essentially that when convalescent plasma from donors who had recovered from COVID-19 is given to patients on mechanical ventilation with high viral titers, there was a decrease in nasopharyngeal viral load and a decrease in disease severity score with improved oxygenation by approximately day 12 after infusion. Given the severity of his illness, he may benefit from this medication. Currently the patient's ELIM IRA II score is 8, demonstrating an approximately 8% nonoperative mortality and a 3% postoperative mortality in the intensive care unit (ICU). His calculated A-a gradient is approximately 321.3. His H score remains at approximately 96-98 points. 3. Community-acquired pneumonia. As stated previously, patient has what looks like a right-sided lower lobe infiltrate, which was demonstrated on his admission. He was previously started on azithromycin. Rocephin was added. He is currently on day 5 of Rocephin and day 6 of azithromycin. 4. Congestive heart failure. As stated previously, the patient has no formal documentation of congestive heart failure; however, patient had developed hypoxia and subsequent BNP was 1400. He has been diuresed. His BNP is now appropriate. Would likely need an echocardiogram outpatient. 5. Obstructive sleep apnea. Patient has sleep apnea. He has been noncompliant with his continuous positive airway pressure (CPAP) at home. Currently on BiPAP. 6. Chronic obstructive pulmonary disease. The patient has COPD at baseline. He is continued on his Pulmicort and Perforomist. He has DuoNebs as needed as well. 7. New onset atrial fibrillation. Patient had gone into atrial fibrillation with RVR. This has not been documented previously, although it is likely that he may have experienced this rhythm in the past. Currently he is anticoagulated with Lovenox, weight based 0.5 mg per kg, twice a day dosing. Upon discharge, he will likely need to continue anticoagulation and follow-up with his PCP or web sizer. 8. Nutrition. Given patient's BiPAP, he has not been receiving nutrition. He is currently able to sip Ensure through a straw adequately without breaking the seal in his mask. Therefore, will continue with Ensure. If the need arises, may have to consider placing a nasopharyngeal tube for tube feedings. If that is less desired, then total parenteral nutrition (TPN), although this would be a less optimal option as it would be more beneficial to have the patient eat. 9. Deep vein thrombosis (DVT) prophylaxis. Given the prothrombotic state of COVID-19, DVT prophylaxis is recommended at a weight based and therapeutic dosing. In regards to this, he is continued on Lovenox 0.5 mg per kg twice a day. Will continue this. Dr. Villareal addendum; I was physically present during the above evaluation and participated in all the woods components of the management of the patient. I agree with the plan as stated above and we will keep the patient under close observation in the ICU in light of the high risk for deterioration 98 minutes were spent in the provision of critical care and coordination of care in excess of any procedure time MTDD
[2019-08-23] MEDS: AZITHROMYCIN INJ 500 MG, VIAL MATE ADAPTER 1 EACH in D5W 250 ML IV SCH (17:51)
[2019-08-23] MEDS: ASPIRIN 81 MG ENTERIC TAB PO SCH (19:35)
[2019-08-23] MEDS: CHLORHEXIDINE GLUCONATE 0.12 % 15ML UDC (PERIDEX ORAL RINSE) SSP SCH (19:35)
[2019-08-23 20:33] LABS: HEMATOCRIT 39.5 % (42.0-52.0); HEMOGLOBIN 12.5 g/dl (13.5-17.5); MEAN CORPUSCULAR HEMOGLOBIN 29.8 pg (27.0-33.0); MEAN CORPUSCULAR HGB CONC 31.6 g/dl (32.0-36.5); MEAN CORPUSCULAR VOLUME 94.3 fl (80.0-96.0); PLATELET COUNT, AUTOMATED 289 10^3/uL (150-450); RED BLOOD COUNT 4.19 10^6/uL (4.30-6.10); WHITE BLOOD COUNT 8.1 10^3/uL (4.0-10.0)
[2019-08-23 21:00] LABS: INR 1.1; PROTHROMBIN TIME 13.9 SECONDS (11.8-14.0)
[2019-08-23 21:01] LABS: PARTIAL THROMBOPLASTIN TIME 34.9 SECONDS (25.0-38.4)
[2019-08-23 21:19] LABS: FERRITIN 3662 NG/ML (26-388); LDH LACTATE DEHYDROGENASE 508 U/L (87-241); NT-PRO BNP 93 PG/ML (<125); TRIGLYCERIDES LEVEL 268 MG/DL (<150); TROPONIN I < 0.02 NG/ML (< 0.10)
[2019-08-23 22:17] LABS: D-DIMER QUANT 3233.49 ng/ml (<500)
[2019-08-24] VITALS (12 sets, daily range): BP systolic 110–139; BP diastolic 56–74; O2SAT 90–94
[2019-08-24] MEDS ORDERED: FUROSEMIDE 40MG/4ML VIAL (J1940) IV ONE (00:45)
[2019-08-24 05:32] LABS: BASO # 0.1 10^3/uL (0.0-0.2); BASO % 0.6 % (0.0-1.0); EOS # 0.1 10^3/uL (0.0-0.5); EOS % 1.1 % (0.0-3.0); HEMATOCRIT 41.1 % (42.0-52.0); HEMOGLOBIN 12.9 g/dl (13.5-17.5); LYMPH # 0.6 10^3/uL (1.5-5.0); LYMPH % 7.6 % (24.0-44.0); MEAN CORPUSCULAR HEMOGLOBIN 29.7 pg (27.0-33.0); MEAN CORPUSCULAR HGB CONC 31.4 g/dl (32.0-36.5); MEAN CORPUSCULAR VOLUME 94.7 fl (80.0-96.0); MONO # 0.2 10^3/uL (0.0-0.8); MONO % 2.5 % (0.0-5.0); NEUTROPHILS # 6.9 10^3/uL (1.5-8.5); NEUTROPHILS % 83.8 % (36.0-66.0); PLATELET COUNT, AUTOMATED 307 10^3/uL (150-450); RED BLOOD COUNT 4.34 10^6/uL (4.30-6.10); WHITE BLOOD COUNT 8.3 10^3/uL (4.0-10.0)
[2019-08-24 05:44] LABS: INR 1.08; PROTHROMBIN TIME 13.7 SECONDS (11.8-14.0)
[2019-08-24 05:45] LABS: FIBRINOGEN 845 MG/DL (221-452); PARTIAL THROMBOPLASTIN TIME 31.5 SECONDS (25.0-38.4)
[2019-08-24 05:55] LABS: ALBUMIN 2.1 GM/DL (3.2-5.2); ALT/SGPT 62 U/L (12-78); BILIRUBIN,TOTAL 0.3 MG/DL (0.2-1.0); BLOOD UREA NITROGEN 23 MG/DL (7-18); CALCIUM LEVEL 8.8 MG/DL (8.8-10.2); CARBON DIOXIDE LEVEL 39 MEQ/L (21-32); CHLORIDE LEVEL 97 MEQ/L (98-107); CREATININE FOR GFR 0.89 MG/DL (0.70-1.30); GLOMERULAR FILTRATION RATE > 60.0 (>42); GLUCOSE, FASTING 112 MG/DL (70-100); MAGNESIUM LEVEL 2.5 MG/DL (1.8-2.4); SODIUM LEVEL 137 MEQ/L (136-145); TOTAL PROTEIN 6.7 GM/DL (6.4-8.2)
[2019-08-24 06:11] LABS: D-DIMER QUANT > 4000 ng/ml (<500)
[2019-08-24 06:11] LABS: C REACTIVE PROTEIN QUANTITATIV 5.83 MG/DL (0.00-0.30); FERRITIN 3138 NG/ML (26-388); LDH LACTATE DEHYDROGENASE 506 U/L (87-241); NT-PRO BNP 100 PG/ML (<125); TROPONIN I < 0.02 NG/ML (< 0.10)
[2019-08-24] MEDS: SLF 3 ML SYR IV SCH ×3 (06:18→21:28)
[2019-08-24] MEDS: BUDESONIDE 0.5 MG/2 ML INHALATION SUSPENSION INH SCH ×2 (07:55→20:11)
[2019-08-24] MEDS: FORMOTEROL FUMARATE 20 MCG/2 ML INHALATION SOLUTION (PERFOROMIST) INH SCH ×2 (07:55→20:11)
[2019-08-24] MEDS: CHLORHEXIDINE GLUCONATE 0.12 % 15ML UDC (PERIDEX ORAL RINSE) SSP SCH ×2 (08:39→21:27)
[2019-08-24] MEDS: FUROSEMIDE 40MG/4ML VIAL (J1940) IV SCH ×2 (08:39→17:49)
[2019-08-24] MEDS: CALCIUM/VITAMIN D 500 MG TAB PO SCH (08:39)
[2019-08-24] MEDS: cefTRIAXone SOD 1 GM in D5W MINI-BAG PLUS 50 ML IV SCH ×2 (08:39→19:31)
[2019-08-24] MEDS: ENOXAPARIN 60MG/0.6ML SYRINGE (J1650 PER 10MG) SC SCH ×2 (08:39→21:27)
--- NOTE | 2019-08-24 10:16 | IPNPDOC ---
Text Note Date of Service The patient was seen on 08/24/19. NOTE Subjective: No any acute events overnight. Patient still has high oxygen requ irements and his currently on the BiPAP. Patient is able to drink Ensure. Objective: VITAL SIGNS: Please see below. GENERAL: awake, alert, breathing through BiPAP HEENT: NCAT, anicteric sclera, LINDEN NECK: supple, no JVD CARDIOVASCULAR EXAMINATION: NS1S2 RESPIRATORY EXAMINATION: Bilateral rales at the bases ABDOMINAL EXAMINATION: positive bowel sounds x 4, NT EXTREMITIES: no cyanosis, clubbing, edema SKIN: warm, no rashes. NEUROLOGICAL EXAMINATION: AAO x 3, no motor/sensory deficits PSYCHIATRIC EXAMINATION: Anxious Patient is 74 years old male with past history of COPD, hyperlipidemia presented hospital with cough, fever. Patient states that he has been having symptoms for past 4-5 days. PCP sent him for COVID 19 test, which came back positive. Today patient has been having increasing shortness of breath. In ER patient was found to have a right lung infiltrate on the chest x-ray, his oxygen saturation was 88% he was placed on that 3 L of oxygen via nasal cannula. Also patient was f ound to have fever, but no leukocytosis. Problems (1) Sepsis Patient had dyspnea, tachycardia and fever on admission Secondary to viral infection. Fever subsided no leukocytosis IV fluid Continue Azithromycin and Ceftriaxone hydroxychloroquine discontinued due to cardiac arrhythmia Patient received 1 dose of tocilizumab c/w Tylenol, ibuprofen Pneumonia Secondary to COVID 19. There is a bacterial coinfection given increased pro- calcitonin level. Ceftriaxone started on 08/19/19 Continue azithromycin Continue BiPAP Continue inhalers Acute hypoxemic respiratory failure Patient developed acute hypoxemic respiratory failure secondary to pneumonia due to COVID 19 with bacterial coinfection Currently patient stable on the BiPAP, hopefully we will avoid intubation. His respiratory failure superimposed with underlying COPD and obesity ARDS Secondary to viral pneumonia due to COVID 19 with bacterial coinfection Imaging study positive for bilateral infiltrates PaO2/ Fio2 around 100 indicates severe ARDS. Patient tolerates BiPAP for now Will continue gentle diuresis Coronavirus infection Follow COVID 19 protocol -monitor inflammatory markers, blood tests Patient received tocilizumab Fever Resolved currently Secondary to sepsis to viral infection Tylenol, ibuprofen Atrial fibrillation with rapid ventricular rate Heart rate is under control Patient receives anticoagulation with therapeutic dose Lovenox. Most likely patient developed cardiac arrhythmia due to Hydrochloroquine, which was dc. Metoprolol IV when necessary Plan / VTE VTE Prophylaxis Ordered?: Yes VS,Rodriguezbone, I+O VS, Fishbone, I+O Laboratory Tests 08/23/19 20:22 08/24/19 05:12 Vital Signs Date Time Temp Pulse Resp B/P (MAP) Pulse Ox O2 Delivery O2 Flow Rate FiO2 08/24/19 07:56 91 BIPAP/CPAP 60 08/24/19 04:00 98.0 81 30 115/57 (76) 08/21/19 04:00 15.0 I&O- Last 24 Hours up to 6 AM 08/24/19 06:00 Intake Total 1535 ml Output Total 1850 ml Balance -315 ml SHAHZAD MCCLENDON DO Aug 24, 2019 10:16
--- NOTE | 2019-08-24 10:55 | CCN ---
DATE: 08/24/2019 The patient is seen in the intensive care unit on noninvasive ventilatory support. This is hospital day #7. His temperature is 98; maximum temperature (Tmax) for the past 24 hours is 98. Pulse rate 81 and stable. Respiratory rate is about 30. Blood pressure 115/57. Saturation is 91% on 60% FiO2. He is currently using a noninvasive ventilator, inspiratory pressure 17 over expiratory of 12. Intake and output for the past 24 hours 1545 in, 1380 out, since midnight 50 mL in and 700 mL out. At bedside, he is ill appearing. His mucosa are pink. He wears dentures. There is no obvious stridor over his trachea. Breath sounds are symmetric, less diminished in the right base than they were yesterday. Heart sounds are regular without ectopy or arrhythmia. Abdomen is soft. Extremities mobile. DIAGNOSTIC STUDIES: Sodium 137, potassium 4.0, chloride 97, CO2 39, BUN 23, creatinine 0.89, glucose 112. His calcium is 8.8, magnesium 2.5. Ferritin is 3138, about the same as yesterday. Bilirubin is 0.3. AST is down to 184, ALT is 62. Albumin is up to 2.1. His alkaline phosphatase is 149, LDH about the same at 506. His C- reactive protein is down significantly at 5.83. White cell count is 8.3, hemoglobin is 12.9, hematocrit 41.1, platelet count is 307,000. Differential white cell count shows 83% neutrophils, 7.6% lymphocytes. PT is 13.7, PTT 31. His fibrinogen is 845, same as yesterday. Brain natriuretic peptide is up slightly at 100. On medication review, this is day #5 of ceftriaxone, day #6 of azithromycin. He is receiving Lovenox 50 mg every 12 hours by weight-based calculation, nebulized budesonide and Perforomist every 12 hours, Lasix 40 mg once a day, aspirin 81 mg a day. The primary problem requiring critical attention is: 1. Acute respiratory failure with hypoxemia. The patient is responding to noninvasive positive pressure ventilation and gas exchange remains impaired but is slightly better today in that he is able to come off his bilevel positive airway pressure (BiPAP) mask for intervals without abruptly desaturating. 2. Right lower lobe pneumonia. He is now status post 5 days of Rocephin, azithromycin. His CRP is down significantly as is his procalcitonin. 3. COVID pneumonia. The patient has received hydroxychloroquine and azithromycin. This was stopped due to cardiac arrhythmias after 5 days. His ferritin remains up, albeit less so. We will continue with supportive care. 4. Congestive heart failure. In light of the slight elevation in BNP, we will increase his Lasix to every 12 hours and monitor electrolytes. 5. Chronic obstructive pulmonary disease. The patient is on budesonide and Perforomist twice daily. 6. Coagulopathy. There is assumed to be a coagulopathy related to COVID infection and we are therefore using Lovenox on a weight-based dosing twice daily. 7. Episode of atrial fibrillation with rapid ventricular response, possibly related to the hydroxychloroquine. He was converted back to sinus rhythm with amiodarone and remains in sinus rhythm with good rate control. 8. Nutrition. The patient is now taking oral supplements liberally. 9. Ulcer prophylaxis. Given the patient's risk, we will institute IV Protonix. 10. Glycemic control is at this point acceptable. The patient's condition is critical. Prognosis is guarded. I have reviewed the case with intensive care unit (ICU) nursing at bedside and updated the patient on our findings. 1 hour and 26 minutes was spent in the provision of bedside critical care and coordination there was not time for procedures . YANI
[2019-08-24] MEDS: PANTOPRAZOLE 40MG TAB (PROTONIX) PO SCH (12:43)
[2019-08-24] MEDS: AZITHROMYCIN INJ 500 MG, VIAL MATE ADAPTER 1 EACH in D5W 250 ML IV SCH (17:49)
[2019-08-24 18:11] LABS: HEMATOCRIT 41.1 % (42.0-52.0); HEMOGLOBIN 12.8 g/dl (13.5-17.5); MEAN CORPUSCULAR HEMOGLOBIN 29.8 pg (27.0-33.0); MEAN CORPUSCULAR HGB CONC 31.1 g/dl (32.0-36.5); MEAN CORPUSCULAR VOLUME 95.6 fl (80.0-96.0); PLATELET COUNT, AUTOMATED 306 10^3/uL (150-450); WHITE BLOOD COUNT 7.8 10^3/uL (4.0-10.0)
[2019-08-24] MEDS: ASPIRIN 81 MG ENTERIC TAB PO SCH (21:27)
[2019-08-25] VITALS (8 sets, daily range): BP systolic 114–137; BP diastolic 59–73; O2SAT 92–93
[2019-08-25 05:00] LABS: BASO # 0.1 10^3/uL (0.0-0.2); BASO % 0.6 % (0.0-1.0); EOS # 0.2 10^3/uL (0.0-0.5); EOS % 1.9 % (0.0-3.0); HEMATOCRIT 39.6 % (42.0-52.0); HEMOGLOBIN 12.5 g/dl (13.5-17.5); LYMPH # 0.8 10^3/uL (1.5-5.0); LYMPH % 10.5 % (24.0-44.0); MEAN CORPUSCULAR HGB CONC 31.6 g/dl (32.0-36.5); MEAN CORPUSCULAR VOLUME 95.2 fl (80.0-96.0); MONO # 0.3 10^3/uL (0.0-0.8); MONO % 3.4 % (0.0-5.0); NEUTROPHILS # 6.3 10^3/uL (1.5-8.5); NEUTROPHILS % 79.7 % (36.0-66.0); PLATELET COUNT, AUTOMATED 299 10^3/uL (150-450); RED BLOOD COUNT 4.16 10^6/uL (4.30-6.10); WHITE BLOOD COUNT 7.9 10^3/uL (4.0-10.0)
[2019-08-25 05:38] LABS: ALBUMIN 2.2 GM/DL (3.2-5.2); ALT/SGPT 52 U/L (12-78); BILIRUBIN,TOTAL 0.3 MG/DL (0.2-1.0); BLOOD UREA NITROGEN 26 MG/DL (7-18); CALCIUM LEVEL 8.3 MG/DL (8.8-10.2); CARBON DIOXIDE LEVEL 39 MEQ/L (21-32); CHLORIDE LEVEL 97 MEQ/L (98-107); CREATININE FOR GFR 0.85 MG/DL (0.70-1.30); GLOMERULAR FILTRATION RATE > 60.0 (>42); GLUCOSE, FASTING 105 MG/DL (70-100); MAGNESIUM LEVEL 2.2 MG/DL (1.8-2.4); POTASSIUM SERUM 4.1 MEQ/L (3.5-5.1); SODIUM LEVEL 139 MEQ/L (136-145); TOTAL PROTEIN 5.8 GM/DL (6.4-8.2)
[2019-08-25] MEDS: SLF 3 ML SYR IV SCH ×3 (06:20→21:02)
[2019-08-25] MEDS: BUDESONIDE 0.5 MG/2 ML INHALATION SUSPENSION INH SCH ×2 (07:21→20:01)
[2019-08-25] MEDS: FORMOTEROL FUMARATE 20 MCG/2 ML INHALATION SOLUTION (PERFOROMIST) INH SCH ×2 (07:21→20:01)
[2019-08-25] MEDS: CHLORHEXIDINE GLUCONATE 0.12 % 15ML UDC (PERIDEX ORAL RINSE) SSP SCH ×2 (07:56→20:35)
[2019-08-25] MEDS: cefTRIAXone SOD 1 GM in D5W MINI-BAG PLUS 50 ML IV SCH ×2 (07:56→20:36)
[2019-08-25] MEDS: ENOXAPARIN 60MG/0.6ML SYRINGE (J1650 PER 10MG) SC SCH ×2 (07:56→20:35)
[2019-08-25] MEDS: PANTOPRAZOLE 40MG TAB (PROTONIX) PO SCH (07:56)
[2019-08-25] MEDS: FUROSEMIDE 40MG/4ML VIAL (J1940) IV SCH ×2 (07:57→17:00)
[2019-08-25] MEDS: CALCIUM/VITAMIN D 500 MG TAB PO SCH (07:57)
--- NOTE | 2019-08-25 10:02 | IPNPDOC ---
Text Note Date of Service The patient was seen on 08/25/19. NOTE Subjective: No any acute events overnight. Patient still has high oxygen requ irements and his currently on the BiPAP. That is slight improvement in the breathing Patient is able to drink Ensure. Objective: VITAL SIGNS: Please see below. GENERAL: awake, alert, breathing through BiPAP HEENT: NCAT, anicteric sclera, LINDEN NECK: supple, no JVD CARDIOVASCULAR EXAMINATION: NS1S2 RESPIRATORY EXAMINATION: Bilateral rales at the bases ABDOMINAL EXAMINATION: positive bowel sounds x 4, NT EXTREMITIES: no cyanosis, clubbing, edema SKIN: warm, no rashes. NEUROLOGICAL EXAMINATION: AAO x 3, no motor/sensory deficits PSYCHIATRIC EXAMINATION: Anxious Patient is 74 years old male with past history of COPD, hyperlipidemia presented hospital with cough, fever. Patient states that he has been having symptoms for past 4-5 days. PCP sent him for COVID 19 test, which came back positive. Today patient has been having increasing shortness of breath. In ER patient was found to have a right lung infiltrate on the chest x-ray, his oxygen saturation was 88% he was placed on that 3 L of oxygen via nasal cannula. Also patient was found to have fever, but no leukocytosis. Problems (1) Sepsis Patient had dyspnea, tachycardia and fever on admission Secondary to viral infection. Fever subsided no leukocytosis IV fluid DC Azithromycin after seventh day and Ceftriaxone hydroxychloroquine discontinued due to cardiac arrhythmia Patient received 1 dose of tocilizumab c/w Tylenol, ibuprofen Pneumonia Secondary to COVID 19. There is a bacterial coinfection given increased pro-zoran citonin level. Ceftriaxone started on 08/19/19 DC azithromycin Continue BiPAP Continue inhalers Acute hypoxemic respiratory failure Patient developed acute hypoxemic respiratory failure secondary to pneumonia due to COVID 19 with bacterial coinfection Currently patient stable on the BiPAP, hopefully we will avoid intubation. His respiratory failure superimposed with underlying COPD and obesity ARDS Secondary to viral pneumonia due to COVID 19 with bacterial coinfection Imaging study positive for bilateral infiltrates PaO2/ Fio2 around 100 indicates severe ARDS. Patient tolerates BiPAP for now Will continue gentle diuresis Coronavirus infection Follow COVID 19 protocol -monitor inflammatory markers, blood tests Patient received tocilizumab Fever Resolved currently Secondary to sepsis to viral infection Tylenol, ibuprofen Atrial fibrillation with rapid ventricular rate Heart rate is under control Patient receives anticoagulation with therapeutic dose Lovenox. Most likely pat ient developed cardiac arrhythmia due to Hydrochloroquine, which was dc. Metoprolol IV when necessary Plan / VTE VTE Prophylaxis Ordered?: Yes VS,Rodriguezbone, I+O VS, Fishbone, I+O Laboratory Tests 08/24/19 18:02 08/25/19 04:50 Vital Signs Date Time Temp Pulse Resp B/P (MAP) Pulse Ox O2 Delivery O2 Flow Rate FiO2 08/25/19 08:30 88 32 86 NIPPV (BIPAP/CPAP) 60 08/25/19 08:20 10.0 08/25/19 08:08 97.5 114/62 (79) I&O- Last 24 Hours up to 6 AM 08/25/19 06:00 Intake Total 1655 ml Output Total 1735 ml Balance -80 ml SHAHZAD MCCLENDON DO Aug 25, 2019 10:02
--- NOTE | 2019-08-25 11:09 | CCN ---
DATE: 08/25/2019 CRITICAL CARE NOTE: The patient is seen in the intensive care unit on noninvasive ventilation, critically ill. This is hospital day #8. His temperature is 97, maximum temperature (Tmax) for the past 24 hours 98, pulse rate is 94, respirations 24, blood pressure 133/67, oxygen saturation 93% on 60% via noninvasive ventilation. His intake and output for the past 24 hours 1305 in, 2125 out, negative 820 yesterday; since midnight 400 in, 310 out. At bedside, he is ill appearing. He is in no immediate distress while on noninvasive ventilation. He is able to come off for periods of time without desaturating. His mucosa are pink. He has a dressing over the bridge of his nose for the bilevel positive airway pressure (BiPAP) mask. There is no stridor audible. His breath sounds are symmetric bilaterally and diminished heart sounds are regular. There is no ectopy on the monitor and there is no tenderness in his abdomen. Extremities are moving normally. DIAGNOSTIC STUDIES: Sodium 139, potassium 4.1, chloride 97, CO2 39 and stable. BUN is 26, creatinine is 0.85. Glucose 105. White cell count is 7.9, hemoglobin 12.5, hematocrit 39.5, platelet count 299,000. Differential white cell count shows 79% neutrophils. His AST is down to 113, ALT is normal at 52. Albumin is up to 2.2, protein 5.8, calcium is 8.3. Magnesium is 2.2. LDH remains elevated at 506. On medications review, this is day #6 of ceftriaxone, day #7 azithromycin. He is receiving budesonide and Perforomist every 12 hours, DuoNebs every 4 hours as needed, subcutaneous Lovenox 50 mg every 12 hours, and Protonix for ulcer prophylaxis. He received Lasix 40 mg IV every 12 hours. The primary problem requiring critical attention is acute respiratory failure. The patient is now able to be off noninvasive ventilation for 15-20 minutes without distress. He does desaturate into the 80s, but tolerates it well. Right lower lobe pneumonia. I will discontinue the azithromycin and continue with Rocephin for 7-10 days. COVID pneumonia status post hydroxychloroquine, azithromycin, and tocilizumab. We will continue with supportive care and recheck the inflammatory markers tomorrow morning. Congestive heart failure. Gentle diuresis will continue with Lasix every 12 hours. Hypercoagulable state felt secondary to COVID infection. The patient is receiving higher doses of Lovenox. There is no active bleeding. Chronic obstructive pulmonary disease (COPD). The patient is receiving his usual budesonide and Perforomist inhaled therapies. Atrial fibrillation with rapid ventricular response. There was one episode which responded promptly to amiodarone. The patient has remained in sinus rhythm. Subsequent to this it is felt possibly related to the chloroquine therapy given earlier. Nutrition. The patient is taking supplements well and his albumin is slightly improved. Ulcer prophylaxis was started yesterday. Glycemic control is acceptable. The patient's condition remains critical. His prognosis remains guarded. The case has been reviewed with the intensive care unit (ICU) team. We will continue aggressive supportive care. 1 hour and 42 minutes was spent in the provision of bedside critical care and coordination in excess of any procedure time.
[2019-08-25 17:13] LABS: HEMATOCRIT 40.2 % (42.0-52.0); HEMOGLOBIN 12.7 g/dl (13.5-17.5); MEAN CORPUSCULAR HEMOGLOBIN 30.2 pg (27.0-33.0); MEAN CORPUSCULAR HGB CONC 31.6 g/dl (32.0-36.5); MEAN CORPUSCULAR VOLUME 95.7 fl (80.0-96.0); PLATELET COUNT, AUTOMATED 304 10^3/uL (150-450); WHITE BLOOD COUNT 9.2 10^3/uL (4.0-10.0)
[2019-08-25] MEDS: SIMVASTATIN 20 MG TAB PO SCH (20:35)
[2019-08-25] MEDS: ASPIRIN 81 MG ENTERIC TAB PO SCH (20:35)
[2019-08-26] VITALS (8 sets, daily range): BP systolic 112–134; BP diastolic 58–88; O2SAT 89–92
[2019-08-26] MEDS: SLF 3 ML SYR IV SCH ×3 (05:29→22:00)
[2019-08-26 05:39] LABS: BASO % 0.4 % (0.0-1.0); EOS # 0.2 10^3/uL (0.0-0.5); EOS % 1.8 % (0.0-3.0); HEMATOCRIT 39.3 % (42.0-52.0); HEMOGLOBIN 12.3 g/dl (13.5-17.5); LYMPH # 0.7 10^3/uL (1.5-5.0); LYMPH % 9.1 % (24.0-44.0); MEAN CORPUSCULAR HEMOGLOBIN 29.8 pg (27.0-33.0); MEAN CORPUSCULAR HGB CONC 31.3 g/dl (32.0-36.5); MEAN CORPUSCULAR VOLUME 95.2 fl (80.0-96.0); MONO # 0.3 10^3/uL (0.0-0.8); MONO % 3.4 % (0.0-5.0); NEUTROPHILS # 6.8 10^3/uL (1.5-8.5); NEUTROPHILS % 82.8 % (36.0-66.0); PLATELET COUNT, AUTOMATED 307 10^3/uL (150-450); RED BLOOD COUNT 4.13 10^6/uL (4.30-6.10); WHITE BLOOD COUNT 8.2 10^3/uL (4.0-10.0)
[2019-08-26 05:54] LABS: C REACTIVE PROTEIN QUANTITATIV 2.72 MG/DL (0.00-0.30); FERRITIN 1842 NG/ML (26-388); MAGNESIUM LEVEL 2.6 MG/DL (1.8-2.4)
[2019-08-26 07:23] LABS: ERYTHROCYTE SEDIMENTATION RATE 71 mm/hr (0-20)
[2019-08-26] MEDS: FORMOTEROL FUMARATE 20 MCG/2 ML INHALATION SOLUTION (PERFOROMIST) INH SCH ×2 (07:24→20:41)
[2019-08-26] MEDS: BUDESONIDE 0.5 MG/2 ML INHALATION SUSPENSION INH SCH ×2 (07:24→20:41)
[2019-08-26 07:56] LABS: ALBUMIN 2.3 GM/DL (3.2-5.2); ALT/SGPT 41 U/L (12-78); BILIRUBIN,TOTAL 0.4 MG/DL (0.2-1.0); BLOOD UREA NITROGEN 28 MG/DL (7-18); CALCIUM LEVEL 8.5 MG/DL (8.8-10.2); CARBON DIOXIDE LEVEL 39 MEQ/L (21-32); CHLORIDE LEVEL 94 MEQ/L (98-107); CREATININE FOR GFR 0.78 MG/DL (0.70-1.30); GLOMERULAR FILTRATION RATE > 60.0 (>42); GLUCOSE, FASTING 105 MG/DL (70-100); SODIUM LEVEL 137 MEQ/L (136-145)
[2019-08-26] MEDS: CHLORHEXIDINE GLUCONATE 0.12 % 15ML UDC (PERIDEX ORAL RINSE) SSP SCH ×2 (08:52→20:02)
[2019-08-26] MEDS: ENOXAPARIN 60MG/0.6ML SYRINGE (J1650 PER 10MG) SC SCH ×2 (08:53→20:02)
[2019-08-26] MEDS: FUROSEMIDE 40MG/4ML VIAL (J1940) IV SCH (08:53)
[2019-08-26] MEDS: cefTRIAXone SOD 1 GM in D5W MINI-BAG PLUS 50 ML IV SCH ×2 (08:53→20:01)
[2019-08-26] MEDS: PANTOPRAZOLE 40MG TAB (PROTONIX) PO SCH (08:53)
[2019-08-26] MEDS: CALCIUM/VITAMIN D 500 MG TAB PO SCH (08:53)
--- NOTE | 2019-08-26 10:20 | REP ---
REASON: Followup. COMPARISON: Multiple, the latest 08/20/2019. Bilateral airspace opacities have worsened. The technique utilized in obtaining the radiograph has magnified the cardiac silhouette and accentuated the interstitial markings. Cardiomediastinal silhouette and osseous structures are unchanged. IMPRESSION: Worsening airspace disease bilaterally. Electronically Signed by Patrick Hancock DO 08/26/2019 03:16 P
--- NOTE | 2019-08-26 11:13 | CCN ---
DATE: 08/26/2019 The patient is seen in the intensive care unit on noninvasive ventilatory support, critically ill. His temperature is 97.2, T-max for the past 24 hours 97.9, pulse rate 92, respirations 30, blood pressure 131/60. Ins and outs over the past 24 hours are 2890 in and 2060 out. At bedside, he remains ill appearing. He is responsive to voice. Notes less dyspnea than 24 hours ago. He does have significant coughing episodes. On exam, he is awake and alert. His heart sounds are regular. Breath sounds are coarse and diminished. Abdomen: Nontender. Extremities: Mobile x4. Diagnostic Studies: White cell count is 8.2, hemoglobin is 12.3, hematocrit 39.3, and platelet count is 307,000. Differential white cell count shows 82% neutrophils, 9.1 lymphocytes. Sodium is 137, potassium is 4, chloride 94, CO2 39, BUN is 28, creatinine 0.78, and glucose 105. His calcium is 8.5, albumin is 2.3. Ferritin is down to 1842. His AST is down to 69, ALT is normal at 41, alkaline phosphatase remains elevated at 132. His C-reactive protein is down to 2.72. Total protein 6. Albumin 2.3. His fibrinogen this morning is 834. A chest x-ray was obtained and shows bilateral interstitial infiltrates. On review of medications, this is day #7 of Rocephin. He is receiving weight based Lovenox, Lasix 40 mg every 12 hours, Perforomist and budesonide twice a day, Protonix 40 mg at bedtime. The primary problem requiring critical attention is acute hypoxic respiratory failure. He is tolerating being off noninvasive positive pressure ventilation for greater periods of time, up to 20 minutes at this point without dyspnea. He does display oxygen desaturations into the 80s, but tolerates them well. His cough causes him to develop dyspnea and return to noninvasive ventilation at this point. Will arrange for guaifenesin to address the cough. Right lower lobe pneumonia. This is day #7 of ceftriaxone. Will continue to 10 days. COVID pneumonia. The chest x-ray does show bilateral infiltrates consistent with viral pneumonia. We will attempt prone posturing today when he is off noninvasive ventilation. Congestive heart failure. It is difficult to determine his fluid volume status. I will increase his Lasix slightly in an effort to achieve a negative fluid balance. Hypercoagulable state related to COVID infection is being addressed with weight based Lovenox twice daily. Chronic obstructive pulmonary disease. The patient is receiving formoterol and budesonide. There is no overt wheezing. Atrial fibrillation. This was a single episode and converted with amiodarone. There is possible relationship to chloroquine administration. He remains in sinus rhythm reasonably rate controlled. Nutrition. The patient is tolerating supplements well. Will advance to a liquid diet. Ulcer prophylaxis is in place. Glycemic control is acceptable. The patient's condition is critical. Prognosis is guarded. 1 hour and 32 minutes was spent in the provision of bedside critical care and coordination in excess of procedure time.
--- NOTE | 2019-08-26 11:27 | IPNPDOC ---
Text Note Date of Service The patient was seen on 08/26/19. NOTE Subjective: No any acute events overnight. Patient still has high oxygen requ irements and his currently on the BiPAP. That is slight improvement in the breathing, patient was able to brief on the high flow oxygen for 20 minutes Patient is able to drink Ensure. Objective: VITAL SIGNS: Please see below. GENERAL: awake, alert, breathing through BiPAP HEENT: NCAT, anicteric sclera, LINDEN NECK: supple, no JVD CARDIOVASCULAR EXAMINATION: NS1S2 RESPIRATORY EXAMINATION: Bilateral rales at the bases ABDOMINAL EXAMINATION: positive bowel sounds x 4, NT EXTREMITIES: no cyanosis, clubbing, edema SKIN: warm, no rashes. NEUROLOGICAL EXAMINATION: AAO x 3, no motor/sensory deficits PSYCHIATRIC EXAMINATION: Anxious Patient is 74 years old male with past history of COPD, hyperlipidemia presented hospital with cough, fever. Patient states that he has been having symptoms for past 4-5 days. PCP sent him for COVID 19 test, which came back positive. Today patient has been having increasing shortness of breath. In ER patient was found to have a right lung infiltrate on the chest x-ray, his oxygen saturation was 88% he was placed on that 3 L of oxygen via nasal cannula. Also patient was found to have fever, but no leukocytosis. Problems (1) Sepsis Patient had dyspnea, tachycardia and fever on admission Secondary to viral infection. Fever subsided no leukocytosis IV fluid DC Azithromycin after seventh day and Ceftriaxone hydroxychloroquine discontinued due to cardiac arrhythmia Patient received 1 dose of tocilizumab c/w Tylenol, ibuprofen Pneumonia Secondary to COVID 19. There is a bacterial coinfection given increased pro- calcitonin level. Ceftriaxone started on 08/19/19 DC azithromycin Continue BiPAP Continue inhalers Acute hypoxemic respiratory failure Patient developed acute hypoxemic respiratory failure secondary to pneumonia due to COVID 19 with bacterial coinfection Currently patient stable on the BiPAP, hopefully we will avoid intubation. His respiratory failure superimposed with underlying COPD and obesity ARDS Secondary to viral pneumonia due to COVID 19 with bacterial coinfection Imaging study positive for bilateral infiltrates PaO2/ Fio2 around 100 indicates severe ARDS. Patient tolerates BiPAP for now Will continue gentle diuresis Coronavirus infection Follow COVID 19 protocol -monitor inflammatory markers, blood tests Patient received tocilizumab Fever Resolved currently Secondary to sepsis to viral infection Tylenol, ibuprofen Atrial fibrillation with rapid ventricular rate Heart rate is under control Patient receives anticoagulation with therapeutic dose Lovenox. Most likely patient developed cardiac arrhythmia due to Hydrochloroquine, which was dc. Metoprolol IV when necessary Plan / VTE VTE Prophylaxis Ordered?: Yes VS,Fishbone, I+O VS, Fishbone, I+O Laboratory Tests 08/25/19 16:59 08/26/19 05:00 Vital Signs Date Time Temp Pulse Resp B/P (MAP) Pulse Ox O2 Delivery O2 Flow Rate FiO2 08/26/19 09:19 102 26 83 High Flow Cannula 15.0 08/26/19 08:50 98.7 133/58 (83) 60 I&O- Last 24 Hours up to 6 AM 08/26/19 06:00 Intake Total 2490 ml Output Total 1750 ml Balance 740 ml SHAHZAD MCCLENDON DO Aug 26, 2019 11:27
[2019-08-26] MEDS: FUROSEMIDE 100MG/10ML VIAL (J1940) IV SCH (16:46)
[2019-08-26] MEDS: SIMVASTATIN 20 MG TAB PO SCH (20:02)
[2019-08-26] MEDS: ASPIRIN 81 MG ENTERIC TAB PO SCH (20:02)
[2019-08-26] MEDS: guaiFENesin SYRUP 200 MG/10 ML UDC PO PRN ×2 (20:02→20:19)
[2019-08-27] VITALS (7 sets, daily range): BP systolic 103–133; BP diastolic 57–66; O2SAT 89–93
[2019-08-27 05:21] LABS: BASO % 0.3 % (0.0-1.0); EOS # 0.1 10^3/uL (0.0-0.5); EOS % 1.1 % (0.0-3.0); HEMATOCRIT 41.3 % (42.0-52.0); LYMPH # 0.8 10^3/uL (1.5-5.0); LYMPH % 8.2 % (24.0-44.0); MEAN CORPUSCULAR HEMOGLOBIN 30.1 pg (27.0-33.0); MEAN CORPUSCULAR HGB CONC 31.5 g/dl (32.0-36.5); MEAN CORPUSCULAR VOLUME 95.6 fl (80.0-96.0); MONO # 0.2 10^3/uL (0.0-0.8); MONO % 2.3 % (0.0-5.0); NEUTROPHILS # 8.3 10^3/uL (1.5-8.5); NEUTROPHILS % 86.9 % (36.0-66.0); PLATELET COUNT, AUTOMATED 318 10^3/uL (150-450); RED BLOOD COUNT 4.32 10^6/uL (4.30-6.10); WHITE BLOOD COUNT 9.5 10^3/uL (4.0-10.0)
[2019-08-27 05:47] LABS: ALBUMIN 2.4 GM/DL (3.2-5.2); ALT/SGPT 32 U/L (12-78); BILIRUBIN,TOTAL 0.5 MG/DL (0.2-1.0); BLOOD UREA NITROGEN 27 MG/DL (7-18); CALCIUM LEVEL 8.3 MG/DL (8.8-10.2); CARBON DIOXIDE LEVEL 40 MEQ/L (21-32); CHLORIDE LEVEL 92 MEQ/L (98-107); CREATININE FOR GFR 0.78 MG/DL (0.70-1.30); GLOMERULAR FILTRATION RATE > 60.0 (>42); GLUCOSE, FASTING 106 MG/DL (70-100); MAGNESIUM LEVEL 2.7 MG/DL (1.8-2.4); POTASSIUM SERUM 3.9 MEQ/L (3.5-5.1); SODIUM LEVEL 135 MEQ/L (136-145); TOTAL PROTEIN 6.2 GM/DL (6.4-8.2)
[2019-08-27] MEDS: SLF 3 ML SYR IV SCH ×3 (06:51→21:24)
[2019-08-27] MEDS: FORMOTEROL FUMARATE 20 MCG/2 ML INHALATION SOLUTION (PERFOROMIST) INH SCH ×2 (07:46→18:57)
[2019-08-27] MEDS: BUDESONIDE 0.5 MG/2 ML INHALATION SUSPENSION INH SCH ×2 (07:46→18:56)
[2019-08-27] MEDS: cefTRIAXone SOD 1 GM in D5W MINI-BAG PLUS 50 ML IV SCH ×2 (09:07→21:25)
[2019-08-27] MEDS: PANTOPRAZOLE 40MG TAB (PROTONIX) PO SCH (09:08)
[2019-08-27] MEDS: CALCIUM/VITAMIN D 500 MG TAB PO SCH (09:09)
[2019-08-27] MEDS: FUROSEMIDE 100MG/10ML VIAL (J1940) IV SCH ×2 (09:09→17:21)
[2019-08-27] MEDS: ENOXAPARIN 60MG/0.6ML SYRINGE (J1650 PER 10MG) SC SCH ×2 (09:09→21:06)
[2019-08-27] MEDS: CHLORHEXIDINE GLUCONATE 0.12 % 15ML UDC (PERIDEX ORAL RINSE) SSP SCH ×2 (09:09→21:06)
--- NOTE | 2019-08-27 11:01 | CCN ---
DATE: 08/27/2019 CRITICAL CARE NOTE: The patient is seen in the intensive care unit on noninvasive ventilation, hypoxemic and critically ill. This is hospital day #10, intensive care unit (ICU) day #10. At bedside, he is ill appearing. His temperature is 98.6, which is the maximal temperature for the past 24 hours. Pulse rate is 98. Respirations are 18. Blood pressure 133/59. Intake and output for the past 24 hours 2550 in, 1800 out. He is in less distress this morning. His mucosa are moist. There is no stridor. His breath sounds are symmetric. Respiratory effort is rested. There is coarsening in the lung bases bilaterally. Heart sounds are regular without appreciable murmur. Abdomen no tenderness, muscle tone is diminished. He is oriented to person, place, and time. DIAGNOSTIC STUDIES: His sodium is 135, potassium 3.9, chloride 92, CO2 is up to 40, BUN 27, creatinine 0.78, glucose 106, calcium is 8.3, magnesium 2.7, bilirubin 0.5. His AST is down to 49, ALT is down to 32. His alkaline phosphatase is about the same as yesterday at 131. Serum albumin is up to 2.4, protein 6.2. CBC shows a white count of 9.5, hemoglobin up to 13, hematocrit up to 41.3, platelet count is 318. Differential white cell count shows 86.9% neutrophils, 8.2% lymphocytes. Chest x-ray from yesterday shows diffuse bilateral infiltrates, more in the bases of the lungs. The primary problem requiring critical attention is: 1. Acute hypoxic respiratory failure. His oxygen requirement is persistent but his time off noninvasive ventilation appears to be increasingly tolerated. Will continue on and off noninvasive ventilation today. 2. Right lower lobe pneumonia. It is difficult to determine based on the x-ray whether this has fully cleared. The infiltrates are more patchy and diffuse. This is day #8 of 10 of ceftriaxone. 3. Coated pneumonia. The patient's chest x-ray shows diffuse bilateral infiltrates. Clinically, he is slowly resolving. 4. Congestive heart failure. The patient did not respond to 60 mg of Lasix twice a day. I will increase to 80. 5. Hypercoagulability due to COVID infection. The patient is receiving Lovenox 50 mg twice a day. There is no evidence of active bleeding. His hemoglobin and hematocrit are stable to improving. 6. Chronic obstructive pulmonary disease. The patient's cough is less with guaifenesin. We will continue formoterol/budesonide. 7. Atrial fibrillation. This was episodic possibly related to medications (chloroquine). He is now in sinus rhythm with a reasonable rate control. 8. Nutritional. The patient tolerated his diet. 10. Glycemic control is acceptable. Ulcer prophylaxis is in place. The patient's condition remains critical. ICU care remains appropriate. 1 hour and 46 minutes was spent in the provision of bedside critical care and coordination with nursing and operations support coordinator in excess of any procedure time.
--- NOTE | 2019-08-27 12:18 | IPNPDOC ---
Text Note Date of Service The patient was seen on 08/27/19. NOTE Subjective: No any acute events overnight. Patient still has high oxygen requ irements and his currently on the BiPAP. Patient continues to improve in his breathing status, he was off BiPAP for 20-25 minutes. Patient was able to eat Objective: VITAL SIGNS: Please see below. GENERAL: awake, alert, breathing through BiPAP HEENT: NCAT, anicteric sclera, LINDEN NECK: supple, no JVD CARDIOVASCULAR EXAMINATION: NS1S2 RESPIRATORY EXAMINATION: Bilateral rales at the bases ABDOMINAL EXAMINATION: positive bowel sounds x 4, NT EXTREMITIES: no cyanosis, clubbing, edema SKIN: warm, no rashes. NEUROLOGICAL EXAMINATION: AAO x 3, no motor/sensory deficits PSYCHIATRIC EXAMINATION: Anxious Patient is 74 years old male with past history of COPD, hyperlipidemia presented hospital with cough, fever. Patient states that he has been having symptoms for past 4-5 days. PCP sent him for COVID 19 test, which came back positive. Today patient has been having increasing shortness of breath. In ER patient was found to have a right lung infiltrate on the chest x-ray, his oxygen saturation was 88% he was placed on that 3 L of oxygen via nasal cannula. Also patient was found to have fever, but no leukocytosis. Problems (1) Sepsis Patient had dyspnea, tachycardia and fever on admission Secondary to viral infection. Fever subsided no leukocytosis IV fluid DC Azithromycin after seventh day and Ceftriaxone hydroxychloroquine discontinued due to cardiac arrhythmia Patient received 1 dose of tocilizumab c/w Tylenol, ibuprofen Pneumonia Secondary to COVID 19. There is a bacterial coinfection given increased pro- calcitonin level. Ceftriaxone started on 08/19/19 DC azithromycin Continue BiPAP Continue inhalers Chest x-ray showed Bilateral airspace opacities have worsened. Acute hypoxemic respiratory failure Patient developed acute hypoxemic respiratory failure secondary to pneumonia due to COVID 19 with bacterial coinfection Currently patient stable on the BiPAP, hopefully we will avoid intubation. His respiratory failure superimposed with underlying COPD and obesity ARDS Secondary to viral pneumonia due to COVID 19 with bacterial coinfection Imaging study positive for bilateral infiltrates PaO2/ Fio2 around 100 indicates severe ARDS. Patient tolerates BiPAP for now Will continue gentle diuresis Coronavirus infection Follow COVID 19 protocol -monitor inflammatory markers, blood tests Patient received tocilizumab Fever Resolved currently Secondary to sepsis to viral infection Tylenol, ibuprofen Atrial fibrillation with rapid ventricular rate Heart rate is under control Patient receives anticoagulation with therapeutic dose Lovenox. Most likely [place] developed cardiac arrhythmia due to Hydrochloroquine, which was dc. Metoprolol IV when necessary Plan / VTE VTE Prophylaxis Ordered?: Yes VS,Fishbone, I+O VS, Fishbone, I+O Laboratory Tests 08/27/19 04:59 Vital Signs Date Time Temp Pulse Resp B/P (MAP) Pulse Ox O2 Delivery O2 Flow Rate FiO2 08/27/19 09:22 96.7 105 18 103/58 (73) 88 High Flow Cannula 15.0 08/27/19 09:00 60 I&O- Last 24 Hours up to 6 AM 08/27/19 06:00 Intake Total 1550 ml Output Total 1625 ml Balance -75 ml SHAHZAD MCCLENDON DO Aug 27, 2019 12:18
[2019-08-27] MEDS: SIMVASTATIN 20 MG TAB PO SCH (21:06)
[2019-08-27] MEDS: ASPIRIN 81 MG ENTERIC TAB PO SCH (21:06)
[2019-08-28] VITALS: BP 130/67; O2SAT 93
[2019-08-28 04:00] VITALS: BP 121/58; O2SAT 89
[2019-08-28 06:49] LABS: BASO % 0.2 % (0.0-1.0); EOS # 0.1 10^3/uL (0.0-0.5); EOS % 1.2 % (0.0-3.0); HEMATOCRIT 39.8 % (42.0-52.0); HEMOGLOBIN 12.9 g/dl (13.5-17.5); LYMPH # 0.7 10^3/uL (1.5-5.0); LYMPH % 8.2 % (24.0-44.0); MEAN CORPUSCULAR HEMOGLOBIN 30.4 pg (27.0-33.0); MEAN CORPUSCULAR HGB CONC 32.4 g/dl (32.0-36.5); MEAN CORPUSCULAR VOLUME 93.9 fl (80.0-96.0); MONO # 0.3 10^3/uL (0.0-0.8); MONO % 3.1 % (0.0-5.0); NEUTROPHILS # 6.9 10^3/uL (1.5-8.5); NEUTROPHILS % 85.8 % (36.0-66.0); PLATELET COUNT, AUTOMATED 281 10^3/uL (150-450); RED BLOOD COUNT 4.24 10^6/uL (4.30-6.10); WHITE BLOOD COUNT 8.1 10^3/uL (4.0-10.0)
[2019-08-28 07:11] LABS: ERYTHROCYTE SEDIMENTATION RATE 78 mm/hr (0-20)
[2019-08-28 07:27] LABS: ALBUMIN 2.4 GM/DL (3.2-5.2); ALT/SGPT 28 U/L (12-78); BILIRUBIN,TOTAL 0.4 MG/DL (0.2-1.0); BLOOD UREA NITROGEN 29 MG/DL (7-18); C REACTIVE PROTEIN QUANTITATIV 2.36 MG/DL (0.00-0.30); CALCIUM LEVEL 8.1 MG/DL (8.8-10.2); CARBON DIOXIDE LEVEL 41 MEQ/L (21-32); CHLORIDE LEVEL 90 MEQ/L (98-107); CREATININE FOR GFR 0.84 MG/DL (0.70-1.30); FERRITIN 1436 NG/ML (26-388); GLOMERULAR FILTRATION RATE > 60.0 (>42); GLUCOSE, FASTING 103 MG/DL (70-100); LDH LACTATE DEHYDROGENASE 358 U/L (87-241); MAGNESIUM LEVEL 2.8 MG/DL (1.8-2.4); POTASSIUM SERUM 3.8 MEQ/L (3.5-5.1); SODIUM LEVEL 136 MEQ/L (136-145); TOTAL PROTEIN 6.1 GM/DL (6.4-8.2)
[2019-08-28] MEDS: BUDESONIDE 0.5 MG/2 ML INHALATION SUSPENSION INH SCH ×2 (07:59→19:10)
[2019-08-28] MEDS: FORMOTEROL FUMARATE 20 MCG/2 ML INHALATION SOLUTION (PERFOROMIST) INH SCH ×2 (07:59→19:11)
[2019-08-28 08:00] VITALS: BP 120/55; O2SAT 95
[2019-08-28] MEDS: CHLORHEXIDINE GLUCONATE 0.12 % 15ML UDC (PERIDEX ORAL RINSE) SSP SCH ×2 (08:38→19:39)
[2019-08-28] MEDS: CALCIUM/VITAMIN D 500 MG TAB PO SCH (08:38)
[2019-08-28] MEDS: PANTOPRAZOLE 40MG TAB (PROTONIX) PO SCH (08:38)
[2019-08-28] MEDS: FUROSEMIDE 100MG/10ML VIAL (J1940) IV SCH ×2 (08:39→18:12)
[2019-08-28] MEDS: ENOXAPARIN 60MG/0.6ML SYRINGE (J1650 PER 10MG) SC SCH ×2 (08:39→19:39)
[2019-08-28] MEDS: cefTRIAXone SOD 1 GM in D5W MINI-BAG PLUS 50 ML IV SCH (08:39)
[2019-08-28] MEDS: SLF 3 ML SYR IV SCH ×3 (08:40→19:39)
--- NOTE | 2019-08-28 10:59 | CCN ---
DATE OF SERVICE: 08/28/2019 The patient is seen in the intensive care unit on noninvasive ventilatory support. This is hospital day #11 noninvasive ventilation day #8. His temperature is 97.7, maximum temperature (T-max) 97.8, pulse rate 89, respirations are 24 and nonlabored, blood pressure 121/58. Ins and outs for the past 24 hours 2520 in, 1135 out. At bedside he is ill appearing. His oral mucosa is pink. His chest is symmetric. Respiratory effort is without accessory muscle engagement. He is able to speak in full sentences. Breath sounds are diminished. Heart sounds are irregularly irregular. Monitor shows a sinus rhythm. Abdomen is without tenderness. He is awake and oriented. DIAGNOSTIC STUDIES: Sodium is 136, potassium 3.8, chloride 90, CO2 is 41, BUN 29, creatinine 0.84, glucose 103. White cell count is 8.1, hemoglobin is 12.9, hematocrit 39.8, platelet count is 281,000. His AST is down to 43, ALT is normal at 28, albumin is the same at 2.4. Total protein is 6.1. His LDH is down this morning at 358, magnesium is 2.8, bilirubin 0.4, fibrinogen is down at 774. CRP is down at 2.36. His serum ferritin is also down to 1436. Chest x-ray on 08/26/2019 showed bilateral infiltrates. On review of medications, this is day #10 of Rocephin. He received 7 days of azithromycin previously. He is receiving nebulized Pulmicort and budesonide twice daily. Protonix for ulcer prophylaxis. Lovenox weight-based dosing. He received tocilizumab on 08/20/2019 and hydroxychloroquine on 08/18/2019. The primary problem requiring critical attention 1. Acute hypoxic respiratory failure. He is now tolerating increased time off noninvasive positive pressure ventilation. We will wean down his oxygen concentrations as able to maintain saturations in the 90s. 2. Right lower lobe pneumonia: Will discontinue Rocephin today. White count is normal. He is not he has not had fever in days. 3. COVID pneumonia. Inflammatory markers are all trending down. It would appear that he is clinically responding. 4. Congestive heart failure: Lasix will be increased 80 mg twice a day and will monitor Input and output. 5. Chronic obstructive pulmonary disease: There is no wheezing on examination he is receiving long-acting beta agonist, long-acting inhaled corticosteroid therapy and we will continue with these. 6. Atrial fibrillation: He is now in sinus rhythm. This event may have been related to the hydroxychloroquine that was given. He returned to sinus rhythm after a single dose of amiodarone and has remained there. His rate is well-controlled. 7. Nutritional status: The patient is taking clear liquids. We will advance his diet to diet as tolerated. 8. Glycemic control is acceptable now with blood sugars in the low 100s. 9. Ulcer prophylaxis is being addressed with Protonix. The patient's condition remains critical. Prognosis is guarded. 1 hour and 15 minutes spent provision of bedside critical care coordination in excess of any procedure time.
[2019-08-28 12:00] VITALS: BP 115/60
--- NOTE | 2019-08-28 12:45 | IPNPDOC ---
Text Note Date of Service The patient was seen on 08/28/19. NOTE Subjective: No any acute events overnight. Patient still has high oxygen req uirements and his currently on the BiPAP. Patient continues to improve in his breathing status, he was off BiPAP on high flow oxygen for 20-25 minutes. Patient was able to eat. Objective: VITAL SIGNS: Please see below. GENERAL: awake, alert, breathing through BiPAP HEENT: NCAT, anicteric sclera, LINDEN NECK: supple, no JVD CARDIOVASCULAR EXAMINATION: NS1S2 RESPIRATORY EXAMINATION: Bilateral rales at the bases ABDOMINAL EXAMINATION: positive bowel sounds x 4, NT EXTREMITIES: no cyanosis, clubbing, edema SKIN: warm, no rashes. NEUROLOGICAL EXAMINATION: AAO x 3, no motor/sensory deficits PSYCHIATRIC EXAMINATION: Anxious Patient is 74 years old male with past history of COPD, hyperlipidemia presented hospital with cough, fever. Patient states that he has been having symptoms for past 4-5 days. PCP sent him for COVID 19 test, which came back positive. Today patient has been having increasing shortness of breath. In ER patient was found to have a right lung infiltrate on the chest x-ray, his oxygen saturation was 88% he was placed on that 3 L of oxygen via nasal cannula. Also patient was found to have fever, but no leukocytosis. Problems (1) Sepsis Patient had dyspnea, tachycardia and fever on admission Secondary to viral infection. Fever subsided no leukocytosis IV fluid DC Azithromycin after seventh day and Ceftriaxone hydroxychloroquine discontinued due to cardiac arrhythmia Patient received 1 dose of tocilizumab c/w Tylenol, ibuprofen Pneumonia Secondary to COVID 19. There is a bacterial coinfection given increased pro- calcitonin level. Ceftriaxone started on 08/19/19. Today 10 days course of ceftriaxone. Will DC DC azithromycin Continue BiPAP Continue inhalers Chest x-ray showed Bilateral airspace opacities have worsened. Acute hypoxemic respiratory failure Patient developed acute hypoxemic respiratory failure secondary to pneumonia due to COVID 19 with bacterial coinfection Currently patient stable on the BiPAP, hopefully we will avoid intubation. His respiratory failure superimposed with underlying COPD and obesity ARDS Secondary to viral pneumonia due to COVID 19 with bacterial coinfection Imaging study positive for bilateral infiltrates PaO2/ Fio2 around 100 indicates severe ARDS. Patient tolerates BiPAP for now Will continue gentle diuresis Coronavirus infection Follow COVID 19 protocol -monitor inflammatory markers, blood tests Patient received tocilizumab Fever Resolved currently Secondary to sepsis to viral infection Tylenol, ibuprofen Atrial fibrillation with rapid ventricular rate Heart rate is under control Patient receives anticoagulation with therapeutic dose Lovenox. Most likely patient developed cardiac arrhythmia due to Hydrochloroquine, which was dc. Metoprolol IV when necessary Plan / VTE VTE Prophylaxis Ordered?: Yes VS,Fishbone, I+O VS, Fishbone, I+O Laboratory Tests 08/28/19 06:14 Vital Signs Date Time Temp Pulse Resp B/P (MAP) Pulse Ox O2 Delivery O2 Flow Rate FiO2 08/28/19 08:00 97.3 104 26 120/55 (76) 84 High Flow Cannula 15.0 08/28/19 04:00 60 I&O- Last 24 Hours up to 6 AM 08/28/19 06:00 Intake Total 2100 ml Output Total 935 ml Balance 1165 ml SHAHZAD MCCLENDON DO Aug 28, 2019 12:45
[2019-08-28] MEDS: ALBUTEROL 90 MCG/ACT 8GM HFA INHALER INH PRN (13:50)
[2019-08-28 16:00] VITALS: BP 106/56
[2019-08-28] MEDS: SIMVASTATIN 20 MG TAB PO SCH (19:38)
[2019-08-28] MEDS: ASPIRIN 81 MG ENTERIC TAB PO SCH (19:39)
[2019-08-28 20:00] VITALS: BP 107/56; O2SAT 91
[2019-08-29] VITALS (8 sets, daily range): BP systolic 116–133; BP diastolic 57–72; O2SAT 88–95
[2019-08-29 05:19] LABS: BASO % 0.4 % (0.0-1.0); EOS # 0.2 10^3/uL (0.0-0.5); EOS % 2.2 % (0.0-3.0); HEMATOCRIT 39.9 % (42.0-52.0); LYMPH # 0.7 10^3/uL (1.5-5.0); LYMPH % 10.8 % (24.0-44.0); MEAN CORPUSCULAR HEMOGLOBIN 30.4 pg (27.0-33.0); MEAN CORPUSCULAR HGB CONC 32.6 g/dl (32.0-36.5); MEAN CORPUSCULAR VOLUME 93.2 fl (80.0-96.0); MONO # 0.3 10^3/uL (0.0-0.8); MONO % 4.4 % (0.0-5.0); NEUTROPHILS # 5.6 10^3/uL (1.5-8.5); NEUTROPHILS % 81.3 % (36.0-66.0); PLATELET COUNT, AUTOMATED 268 10^3/uL (150-450); RED BLOOD COUNT 4.28 10^6/uL (4.30-6.10); WHITE BLOOD COUNT 6.9 10^3/uL (4.0-10.0)
[2019-08-29 05:40] LABS: ALBUMIN 2.3 GM/DL (3.2-5.2); ALT/SGPT 32 U/L (12-78); BILIRUBIN,TOTAL 0.5 MG/DL (0.2-1.0); BLOOD UREA NITROGEN 31 MG/DL (7-18); CALCIUM LEVEL 8.8 MG/DL (8.8-10.2); CARBON DIOXIDE LEVEL 40 MEQ/L (21-32); CHLORIDE LEVEL 90 MEQ/L (98-107); CREATININE FOR GFR 0.83 MG/DL (0.70-1.30); GLOMERULAR FILTRATION RATE > 60.0 (>42); GLUCOSE, FASTING 105 MG/DL (70-100); MAGNESIUM LEVEL 2.8 MG/DL (1.8-2.4); POTASSIUM SERUM 3.3 MEQ/L (3.5-5.1); SODIUM LEVEL 135 MEQ/L (136-145)
[2019-08-29] MEDS: SLF 3 ML SYR IV SCH ×3 (06:00→20:15)
[2019-08-29] MEDS ORDERED: POTASSIUM CHLORIDE 10 MEQ SR TABLET PO ONE (06:15)
[2019-08-29] MEDS: BUDESONIDE 0.5 MG/2 ML INHALATION SUSPENSION INH SCH ×2 (07:51→19:18)
[2019-08-29] MEDS: FORMOTEROL FUMARATE 20 MCG/2 ML INHALATION SOLUTION (PERFOROMIST) INH SCH ×2 (07:51→19:18)
[2019-08-29] MEDS: FUROSEMIDE 100MG/10ML VIAL (J1940) IV SCH ×2 (08:54→18:03)
[2019-08-29] MEDS: CHLORHEXIDINE GLUCONATE 0.12 % 15ML UDC (PERIDEX ORAL RINSE) SSP SCH ×2 (08:55→20:14)
[2019-08-29] MEDS: PANTOPRAZOLE 40MG TAB (PROTONIX) PO SCH (08:55)
[2019-08-29] MEDS: ENOXAPARIN 60MG/0.6ML SYRINGE (J1650 PER 10MG) SC SCH ×2 (08:55→20:14)
[2019-08-29] MEDS: CALCIUM/VITAMIN D 500 MG TAB PO SCH (08:55)
--- NOTE | 2019-08-29 11:42 | CR ---
DATE OF CONSULTATION: 08/29/2019 The patient is seen in the intensive care unit using noninvasive positive pressure ventilation and high-flow oxygen, critically ill. Temperature is 97.7, maximum temperature (Tmax) for the past 24 hours 97.7, pulse rate is 94 and sinus, respiratory rate 22, blood pressure 127/60. Intake and output (I and O): For the past 24 hours, 2660 in, 2160 out. Since midnight, 600 and 825 out. At bedside, he is ill appearing. His oral mucosa appears moist. There is an ulcer on the bridge of his nose. No stridor over his trachea. Breath sounds are symmetric and rested and diminished. Heart sounds are regular. Abdomen is nontender. He is alert and oriented. Extremities display weakness. DIAGNOSTIC STUDIES: His white cell count is down to 6.9, hemoglobin is up to 13, hematocrit is 39.9, platelet count is 268,000, differential white cell count shows 81.3 neutrophils, 10.8 lymphocytes. The sodium is 135, potassium is down to 3.3, chloride 90, CO2 40, BUN 31, creatinine 0.83, glucose is 105, calcium is 8.8, magnesium 2.8, bilirubin 0.5, AST is down at 41, ALT is normal at 32, alkaline phosphatase is down at 121, his protein is 7, albumin 2.3. On medications review, he has completed a 10-day course of Rocephin. This was stopped yesterday. He also completed a course of azithromycin. He is receiving enoxaparin 50 mg twice a day, aspirin 81 mg nightly, Perforomist and budesonide nebulized twice daily, Protonix 40 mg a day, simvastatin 20 mg nightly, guaifenesin 10 mg three times a day, Lasix 80 mg twice a day. The primary problem requiring critical attention is acute hypoxic respiratory failure with acute respiratory distress syndrome (ARDS). His oxygen need is declining. We will titrate his high-flow oxygen to reduce flow rate and reduce pressures on noninvasive positive pressure therapy to target a lower tidal volume. COVID pneumonia, status post hydroxychloroquine, azithromycin, and tocilizumab. Inflammatory markers have been trending down steadily. Right lower lobe pneumonia, status post 10 days of Rocephin. His white cell count is down, and he has not had fever. Congestive heart failure. I and O are slightly negative through the night. His potassium is down some. We will replace this and recheck it and continue with 80 of Lasix twice a day to maintain a negative fluid balance. Atrial fibrillation. This was one episode following hydroxychloroquine, possibly related to it. He has been in sinus rhythm since then and had one dose of amiodarone. Nutrition. He is tolerating his diet. Glycemic control is acceptable. Ulcer prophylaxis being addressed with Protonix. Hypercoagulability felt to be related to COVID virus infection is being addressed with Lovenox 50 twice a day. The patient is quite deconditioned. Physical therapy has been working with him. He has been able to be out of bed for a period of time but will require additional physical therapy and possibly rehabilitation. The patient's condition is critical. Prognosis is guarded. 1 hour and 10 minutes was spent in the provision of bedside critical care and coordination.
--- NOTE | 2019-08-29 12:23 | IPNPDOC ---
Text Note Date of Service The patient was seen on 08/29/19. NOTE Subjective: No any acute events overnight. Patient continues to improve in his breathing status. Pt is on high flow oxygen when he awake. Objective: VITAL SIGNS: Please see below. GENERAL: awake, alert, breathing through BiPAP HEENT: NCAT, anicteric sclera, LINDEN NECK: supple, no JVD CARDIOVASCULAR EXAMINATION: NS1S2 RESPIRATORY EXAMINATION: Bilateral rales at the bases ABDOMINAL EXAMINATION: positive bowel sounds x 4, NT EXTREMITIES: no cyanosis, clubbing, edema SKIN: warm, no rashes. NEUROLOGICAL EXAMINATION: AAO x 3, no motor/sensory deficits PSYCHIATRIC EXAMINATION: Anxious Patient is 74 years old male with past history of COPD, hyperlipidemia presented hospital with cough, fever. Patient states that he has been having symptoms for past 4-5 days. PCP sent him for COVID 19 test, which came back positive. Today patient has been having increasing shortness of breath. In ER patient was found to have a right lung infiltrate on the chest x-ray, his oxygen saturation was 88% he was placed on that 3 L of oxygen via nasal cannula. Also patient was found to have fever, but no leukocytosis. Problems (1) Sepsis Patient had dyspnea, tachycardia and fever on admission Secondary to viral infection. Fever subsided no leukocytosis IV fluid DC Azithromycin after seventh day and Ceftriaxone hydroxychloroquine discontinued due to cardiac arrhythmia Patient received 1 dose of tocilizumab c/w Tylenol, ibuprofen Pneumonia Secondary to COVID 19. There is a bacterial coinfection given increased pro- calcitonin level. Ceftriaxone started on 08/19/19. Completed 10 days course of ceftriaxone. DC azithromycin Continue BiPAP, high oxygen Continue inhalers Chest x-ray showed Bilateral airspace opacities have worsened. Acute hypoxemic respiratory failure Patient developed acute hypoxemic respiratory failure secondary to pneumonia due to COVID 19 with bacterial coinfection Currently patient stable on the BiPAP when he sleeps and on high oxygen flow when he is awake. His respiratory failure superimposed with underlying COPD and obesity ARDS Secondary to viral pneumonia due to COVID 19 with bacterial coinfection Imaging study positive for bilateral infiltrates PaO2/ Fio2 around 100 indicates severe ARDS. Will continue gentle diuresis Patient continues to slowly improve Coronavirus infection Follow COVID 19 protocol -monitor inflammatory markers, blood tests Patient received tocilizumab Fever Resolved currently Secondary to sepsis to viral infection Tylenol, ibuprofen Atrial fibrillation with rapid ventricular rate Heart rate is under control Patient receives anticoagulation with therapeutic dose Lovenox. Most likely patient developed cardiac arrhythmia due to Hydrochloroquine, which was dc. Metoprolol IV when necessary Plan / VTE VTE Prophylaxis Ordered?: Yes VS,Fishbone, I+O VS, Fishbone, I+O Laboratory Tests 08/29/19 05:00 Vital Signs Date Time Temp Pulse Resp B/P (MAP) Pulse Ox O2 Delivery O2 Flow Rate FiO2 08/29/19 11:08 31 84 High Flow Cannula 15.0 08/29/19 11:00 97.3 117 133/60 (84) 08/29/19 04:00 50 I&O- Last 24 Hours up to 6 AM 08/29/19 06:00 Intake Total 1970 ml Output Total 2450 ml Balance -480 ml SHAHZAD MCCLENDON DO Aug 29, 2019 12:23
[2019-08-29] MEDS: SIMVASTATIN 20 MG TAB PO SCH (20:13)
[2019-08-29] MEDS: POTASSIUM CHLORIDE 10 MEQ SR TABLET PO SCH (20:13)
[2019-08-29] MEDS: ASPIRIN 81 MG ENTERIC TAB PO SCH (20:13)
[2019-08-30] VITALS (8 sets, daily range): BP systolic 100–123; BP diastolic 56–62; O2SAT 90–96
[2019-08-30 05:09] LABS: BASO % 0.7 % (0.0-1.0); EOS # 0.1 10^3/uL (0.0-0.5); EOS % 1.9 % (0.0-3.0); HEMATOCRIT 39.2 % (42.0-52.0); HEMOGLOBIN 12.8 g/dl (13.5-17.5); LYMPH # 0.8 10^3/uL (1.5-5.0); LYMPH % 14.7 % (24.0-44.0); MEAN CORPUSCULAR HEMOGLOBIN 30.3 pg (27.0-33.0); MEAN CORPUSCULAR HGB CONC 32.7 g/dl (32.0-36.5); MEAN CORPUSCULAR VOLUME 92.7 fl (80.0-96.0); MONO # 0.4 10^3/uL (0.0-0.8); MONO % 6.7 % (0.0-5.0); NEUTROPHILS # 4.3 10^3/uL (1.5-8.5); NEUTROPHILS % 74.9 % (36.0-66.0); PLATELET COUNT, AUTOMATED 279 10^3/uL (150-450); RED BLOOD COUNT 4.23 10^6/uL (4.30-6.10); WHITE BLOOD COUNT 5.7 10^3/uL (4.0-10.0)
[2019-08-30 05:30] LABS: ALBUMIN 2.4 GM/DL (3.2-5.2); ALT/SGPT 36 U/L (12-78); BILIRUBIN,TOTAL 0.5 MG/DL (0.2-1.0); BLOOD UREA NITROGEN 28 MG/DL (7-18); CALCIUM LEVEL 8.8 MG/DL (8.8-10.2); CARBON DIOXIDE LEVEL 37 MEQ/L (21-32); CHLORIDE LEVEL 92 MEQ/L (98-107); CREATININE FOR GFR 0.82 MG/DL (0.70-1.30); GLOMERULAR FILTRATION RATE > 60.0 (>42); GLUCOSE, FASTING 97 MG/DL (70-100); MAGNESIUM LEVEL 2.7 MG/DL (1.8-2.4); POTASSIUM SERUM 3.6 MEQ/L (3.5-5.1); SODIUM LEVEL 133 MEQ/L (136-145)
[2019-08-30] MEDS: SLF 3 ML SYR IV SCH ×3 (06:00→21:29)
[2019-08-30] MEDS: BUDESONIDE 0.5 MG/2 ML INHALATION SUSPENSION INH SCH ×2 (07:32→20:06)
[2019-08-30] MEDS: FORMOTEROL FUMARATE 20 MCG/2 ML INHALATION SOLUTION (PERFOROMIST) INH SCH ×2 (07:32→20:00)
[2019-08-30] MEDS ORDERED: POTASSIUM CHLORIDE 10 MEQ SR TABLET PO ONE (08:00)
[2019-08-30] MEDS: ENOXAPARIN 60MG/0.6ML SYRINGE (J1650 PER 10MG) SC SCH (08:06)
[2019-08-30] MEDS: FUROSEMIDE 100MG/10ML VIAL (J1940) IV SCH (08:08)
[2019-08-30] MEDS: CALCIUM/VITAMIN D 500 MG TAB PO SCH (08:08)
[2019-08-30] MEDS: PANTOPRAZOLE 40MG TAB (PROTONIX) PO SCH (08:08)
[2019-08-30] MEDS: POTASSIUM CHLORIDE 10 MEQ SR TABLET PO SCH (08:09)
[2019-08-30] MEDS: CHLORHEXIDINE GLUCONATE 0.12 % 15ML UDC (PERIDEX ORAL RINSE) SSP SCH ×2 (08:09→21:29)
[2019-08-30] MEDS: ACETYLCYSTEINE 20% 4 ML VIAL (200MG/ML) INH SCH ×3 (10:18→20:06)
[2019-08-30] MEDS: ALBUTEROL SULFATE 2.5 MG/0.5 ML INH NEB SOLN NEB SCH ×3 (10:18→20:06)
--- NOTE | 2019-08-30 11:25 | IPNPDOC ---
Text Note Date of Service The patient was seen on 08/30/19. NOTE Subjective: No any acute events overnight. Patient continues to improve in his breathing status. Pt is on high flow oxygen most of the time. Patient is able to eat, he is participating in physical therapy. Objective: VITAL SIGNS: Please see below. GENERAL: awake, alert, breathing through BiPAP HEENT: NCAT, anicteric sclera, LINDEN NECK: supple, no JVD CARDIOVASCULAR EXAMINATION: NS1S2 RESPIRATORY EXAMINATION: Bilateral rales at the bases ABDOMINAL EXAMINATION: positive bowel sounds x 4, NT EXTREMITIES: no cyanosis, clubbing, edema SKIN: warm, no rashes. NEUROLOGICAL EXAMINATION: AAO x 3, no motor/sensory deficits PSYCHIATRIC EXAMINATION: Anxious Patient is 74 years old male with past history of COPD, hyperlipidemia presented hospital with cough, fever. Patient states that he has been having symptoms for past 4-5 days. PCP sent him for COVID 19 test, which came back positive. Today patient has been having increasing shortness of breath. In ER patient was found to have a right lung infiltrate on the chest x-ray, his oxygen saturation was 88% he was placed on that 3 L of oxygen via nasal cannula. Also patient was found to have fever, but no leukocytosis. Problems (1) Sepsis Resolved Patient had dyspnea, tachycardia and fever on admission Secondary to viral infection. Fever subsided no leukocytosis IV fluid DC Azithromycin after seventh day and Ceftriaxone hydroxychloroquine discontinued due to cardiac arrhythmia Patient received 1 dose of tocilizumab c/w Tylenol, ibuprofen Pneumonia Secondary to COVID 19. There is a bacterial coinfection given increased pro- calcitonin level. Ceftriaxone started on 08/19/19. Completed 10 days course of ceftriaxone. DC azithromycin Continue BiPAP, high oxygen Continue inhalers Chest x-ray showed Bilateral airspace opacities have worsened Patient demonstrated slow improvement in his breathing. Acute hypoxemic respiratory failure Patient developed acute hypoxemic respiratory failure secondary to pneumonia due to COVID 19 with bacterial coinfection Currently patient stable on the BiPAP when he sleeps and on high oxygen flow when he is awake. His respiratory failure superimposed with underlying COPD and obesity ARDS Secondary to viral pneumonia due to COVID 19 with bacterial coinfection Imaging study positive for bilateral infiltrates PaO2/ Fio2 around 100 indicates severe ARDS. Will continue gentle diuresis Patient continues to slowly improve Coronavirus infection Follow COVID 19 protocol -monitor inflammatory markers, blood tests Patient received tocilizumab Fever Resolved currently Secondary to sepsis to viral infection Tylenol, ibuprofen Atrial fibrillation with rapid ventricular rate Heart rate is under control We changed Lovenox to Eliquis 5 mg twice a day. Most likely patient developed cardiac arrhythmia due to Hydrochloroquine, which was dc. Metoprolol IV when necessary Plan / VTE VTE Prophylaxis Ordered?: Yes VS,Fishbone, I+O VS, Fishbone, I+O Laboratory Tests 08/30/19 04:58 Vital Signs Date Time Temp Pulse Resp B/P (MAP) Pulse Ox O2 Delivery O2 Flow Rate FiO2 08/30/19 08:00 90 High Flow Cannula 15.0 08/30/19 08:00 96.2 96 24 105/56 (72) 08/30/19 04:00 50 I&O- Last 24 Hours up to 6 AM 08/30/19 06:00 Intake Total 1680 ml Output Total 2200 ml Balance -520 ml SHAHZAD MCCLENDON DO Aug 30, 2019 11:25
--- NOTE | 2019-08-30 11:51 | CCN ---
DATE: 08/30/2019 The patient was seen and examined this morning during bedside rounds. Overnight the patient has remained off of bilevel positive airway pressure (BiPAP). He was on high-flow nasal cannula oxygen and he has been maintaining his oxygen saturations. The patient does have episodes of desaturation with movement and exertion. This morning he reports that his breathing has been doing fairly well. He does have some shortness of breath with exertion. He does have an incentive spirometer with him and he has tried it, although he states it causes him to have coughing. He was able to expectorate a very thick yellow-larsen glob of mucus after a lot of coughing. He did state he felt better after he was able to expectorate the mucus. He has not had any fevers overnight, has no chest pain. Denies any abdominal pain. No nausea or vomiting. PHYSICAL EXAMINATION: Vital Signs: Temperature 96.9, pulse 99, respirations 22, blood pressure 123/59, oxygen saturation 90-96% on 15 liters of minute nasal cannula. In 1679, out 1999, net negative 320 mL. General: The patient is sitting up in bed, is able to speak in short sentences. HEENT: Appears normocephalic. Some dry mucous membranes. There is a ulcer scabbed on the bridge of his nose. Cardiovascular: Regular rate and rhythm. Normal S1 and S2. No murmurs appreciated. Pulmonary: There are diminished coarse breath sounds bilaterally, particularly in the bases of the lungs. There is no wheezing noted. Abdomen is soft, nontender, nondistended. Extremities: There is no lower extremity edema bilaterally. The patient does have some generalized weakness. LABORATORY DATA: WBC 5.7, hemoglobin 12.8, platelets are 279. Sodium 133, potassium 3.6, chloride 92, bicarbonate 37, BUN 28, creatinine 0.82, glucose is 97. Calcium 8.8, magnesium 2.7. AST 45, ALT 36. Alkaline phosphatase 116. Albumin is 2.4. ASSESSMENT AND PLAN: Mr. Hooper is a 74-year-old male with a past medical history of chronic obstructive pulmonary disease (COPD), hypertension, obstructive sleep apnea (TARAN) on continuous positive airway pressure (CPAP) who presented with worsening shortness of breath and cough with acute hypoxemic respiratory failure. The patient was positive for COVID-19 and was also thought to have a superimposed bacterial pneumonia as well as Coronavirus. The patient's hospital course was also complicated with decompensated congestive heart failure, for which he was treated with Lasix for diuresis. The patient did also develop worsening hypoxemia and acute respiratory distress syndrome (ARDS) requiring noninvasive positive pressure ventilation with bilevel positive airway pressure (BiPAP) The patient has been clinically improving. He was treated with hydroxychloroquine, azithromycin and tocilizumab for COVID pneumonia with improvement in his inflammatory markers. He also received antibiotics for his right lower lobe pneumonia with ceftriaxone and his leukocytosis and fever curve has improved. The patient was able to be weaned off of the BiPAP to high-flow nasal cannula yesterday, which he has been tolerating well. - The patient will be encouraged to use his incentive spirometer to help with atelectasis and his oxygenation. He was also encouraged to be out of bed into the chair and to ambulate with physical therapy (PT) as well to help with his atelectasis. - The patient did have thick mucus that he would was able to expectorate yesterday, however with some difficulty. Suspect he has some mucus plugging and will benefit from Mucomyst and albuterol to help improve his mucus clearance and also likely his oxygenation. - Will continue to wean down his nasal cannula oxygen supplementation. Will add humidifier as he is on high-flow nasal cannula oxygen. I will maintain an oxygen saturation above 88% if possible. - The patient's brain natriuretic peptide (BNP) has trended down with diuretics. He has been on Lasix 80 mg IV twice a day and has been slightly net negative. The patient does appear to have some tachycardia, which may be related to hypoxemia, although it may also be due to some volume depletion with his aggressive diuresis. He does have elevated bicarbonate, which is likely in the setting of metabolic alkalosis from his diuretics. Will hold his evening dose of IV Lasix today and will switch him to oral torsemide tomorrow and continue to monitor his ins and outs. - Will hold his evening potassium chloride supplement and continue to monitor his electrolytes and replete his potassium as needed. - Continue with nebulized Perforomist and budesonide. - The patient did have an episode of atrial fibrillation, which may have been in acute setting of his illness and also following his treatment with hydroxychloroquine and azithromycin. He has been in sinus rhythm since then after receiving a dose of amiodarone. He is on Lovenox weight-based for deep venous thrombosis (DVT) prophylaxis. There is discussion with his primary team about starting him on full-dose anticoagulation given his atrial fibrillation with a NOAC. DVT prophylaxis currently with weight-based Lovenox. Gastrointestinal (GI) prophylaxis with Protonix. Continue with PT. The patient does have some deconditioning and he may require placement at a rehab facility once medically cleared. CODE STATUS: FULL CODE. Total critical care time spent not including any procedures approximately 40 minutes. YANI
[2019-08-30] MEDS: SIMVASTATIN 20 MG TAB PO SCH (21:28)
[2019-08-30] MEDS: ASPIRIN 81 MG ENTERIC TAB PO SCH (21:28)
[2019-08-30] MEDS: APIXABAN 5 MG TAB (ELIQUIS) PO SCH (21:28)
[2019-08-31] VITALS (7 sets, daily range): BP systolic 118–128; BP diastolic 56–65; O2SAT 90–94
[2019-08-31 05:32] LABS: BASO % 0.5 % (0.0-1.0); EOS # 0.1 10^3/uL (0.0-0.5); EOS % 2.3 % (0.0-3.0); HEMATOCRIT 40.3 % (42.0-52.0); LYMPH # 0.8 10^3/uL (1.5-5.0); LYMPH % 13.9 % (24.0-44.0); MEAN CORPUSCULAR HGB CONC 32.3 g/dl (32.0-36.5); MEAN CORPUSCULAR VOLUME 93.1 fl (80.0-96.0); MONO # 0.4 10^3/uL (0.0-0.8); MONO % 7.1 % (0.0-5.0); NEUTROPHILS # 4.4 10^3/uL (1.5-8.5); NEUTROPHILS % 75.5 % (36.0-66.0); PLATELET COUNT, AUTOMATED 288 10^3/uL (150-450); RED BLOOD COUNT 4.33 10^6/uL (4.30-6.10); WHITE BLOOD COUNT 5.8 10^3/uL (4.0-10.0)
[2019-08-31 05:47] LABS: ALBUMIN 2.5 GM/DL (3.2-5.2); ALT/SGPT 40 U/L (12-78); BILIRUBIN,TOTAL 0.6 MG/DL (0.2-1.0); BLOOD UREA NITROGEN 27 MG/DL (7-18); CALCIUM LEVEL 9.1 MG/DL (8.8-10.2); CARBON DIOXIDE LEVEL 41 MEQ/L (21-32); CHLORIDE LEVEL 92 MEQ/L (98-107); GLOMERULAR FILTRATION RATE > 60.0 (>42); GLUCOSE, FASTING 103 MG/DL (70-100); MAGNESIUM LEVEL 2.8 MG/DL (1.8-2.4); POTASSIUM SERUM 3.6 MEQ/L (3.5-5.1); SODIUM LEVEL 135 MEQ/L (136-145); TOTAL PROTEIN 6.9 GM/DL (6.4-8.2)
[2019-08-31] MEDS: SLF 3 ML SYR IV SCH ×3 (06:00→20:09)
[2019-08-31] MEDS: BUDESONIDE 0.5 MG/2 ML INHALATION SUSPENSION INH SCH ×2 (07:41→20:07)
[2019-08-31] MEDS: FORMOTEROL FUMARATE 20 MCG/2 ML INHALATION SOLUTION (PERFOROMIST) INH SCH ×2 (07:41→20:07)
[2019-08-31] MEDS: ACETYLCYSTEINE 20% 4 ML VIAL (200MG/ML) INH SCH ×3 (07:42→20:08)
[2019-08-31] MEDS: ALBUTEROL SULFATE 2.5 MG/0.5 ML INH NEB SOLN NEB SCH ×3 (07:42→20:07)
[2019-08-31] MEDS: TORSEMIDE 20 MG TAB PO SCH ×2 (08:13→16:32)
[2019-08-31] MEDS: APIXABAN 5 MG TAB (ELIQUIS) PO SCH ×2 (08:13→20:09)
[2019-08-31] MEDS: CALCIUM/VITAMIN D 500 MG TAB PO SCH (08:14)
[2019-08-31] MEDS: PANTOPRAZOLE 40MG TAB (PROTONIX) PO SCH (08:14)
[2019-08-31] MEDS: CHLORHEXIDINE GLUCONATE 0.12 % 15ML UDC (PERIDEX ORAL RINSE) SSP SCH ×2 (08:15→20:09)
--- NOTE | 2019-08-31 11:15 | IPNPDOC ---
Text Note Date of Service The patient was seen on 08/31/19. NOTE Subjective: No any acute events overnight. Patient continues to improve in his breathing status. Pt is on high flow oxygen most of the time. Patient is able to eat, he is participating in physical therapy. Objective: VITAL SIGNS: Please see below. GENERAL: awake, alert, breathing high flow oxygen HEENT: NCAT, anicteric sclera, LINDEN NECK: supple, no JVD CARDIOVASCULAR EXAMINATION: NS1S2 RESPIRATORY EXAMINATION: Bilateral rales at the bases ABDOMINAL EXAMINATION: positive bowel sounds x 4, NT EXTREMITIES: no cyanosis, clubbing, edema SKIN: warm, no rashes. NEUROLOGICAL EXAMINATION: AAO x 3, no motor/sensory deficits PSYCHIATRIC EXAMINATION: Anxious Patient is 74 years old male with past history of COPD, hyperlipidemia presented hospital with cough, fever. Patient states that he has been having symptoms for past 4-5 days. PCP sent him for COVID 19 test, which came back positive. Today patient has been having increasing shortness of breath. In ER patient was found to have a right lung infiltrate on the chest x-ray, his oxygen saturation was 88% he was placed on that 3 L of oxygen via nasal cannula. Also patient was found to have fever, but no leukocytosis. Problems (1) Sepsis Resolved Patient had dyspnea, tachycardia and fever on admission Secondary to viral infection. Fever subsided no leukocytosis IV fluid DC Azithromycin after seventh day and Ceftriaxone hydroxychloroquine discontinued due to cardiac arrhythmia Patient received 1 dose of tocilizumab c/w Tylenol, ibuprofen Pneumonia Secondary to COVID 19. There is a bacterial coinfection given increased pro- calcitonin level. Ceftriaxone started on 08/19/19. Completed 10 days course of ce ftriaxone. DC azithromycin Continue BiPAP, high flow oxygen Continue inhalers Chest x-ray showed Bilateral airspace opacities have worsened Patient demonstrated slow improvement in his breathing. Acute hypoxemic respiratory failure Patient developed acute hypoxemic respiratory failure secondary to pneumonia due to COVID 19 with bacterial coinfection Currently patient stable on the BiPAP when he sleeps and on high oxygen flow when he is awake. His respiratory failure superimposed with underlying COPD and obesity ARDS Secondary to viral pneumonia due to COVID 19 with bacterial coinfection Imaging study positive for bilateral infiltrates PaO2/ Fio2 around 100 indicated severe ARDS. Will continue diuresis DC Lasix, continue torsemide Patient continues to slowly improve Coronavirus infection Follow COVID 19 protocol -monitor inflammatory markers, blood tests Patient received tocilizumab Fever Resolved currently Secondary to sepsis to viral infection Tylenol, ibuprofen Atrial fibrillation with rapid ventricular rate Heart rate is under control We changed Lovenox to Eliquis 5 mg twice a day. Most likely patient developed cardiac arrhythmia due to Hydrochloroquine, which was dc. Metoprolol IV when necessary PT/OT VS,Fishbone, I+O VS, Fishbone, I+O Laboratory Tests 08/31/19 04:44 Vital Signs Date Time Temp Pulse Resp B/P (MAP) Pulse Ox O2 Delivery O2 Flow Rate FiO2 08/31/19 08:00 96.4 105 28 128/58 (81) 87 High Flow Cannula 15.0 08/30/19 04:00 50 I&O- Last 24 Hours up to 6 AM 08/31/19 06:00 Intake Total 1320 ml Output Total 1225 ml Balance 95 ml SHAHZAD MCCLENDON DO Aug 31, 2019 11:15
[2019-08-31] MEDS: guaiFENesin SYRUP 200 MG/10 ML UDC PO PRN (12:47)
[2019-08-31] MEDS: POTASSIUM CHLORIDE 10 MEQ SR TABLET PO SCH ×2 (12:47→20:09)
--- NOTE | 2019-08-31 14:20 | CCN ---
DATE: 08/31/2019 The patient was seen and examined this morning during bedside rounds. The patient has remained on high-flow nasal cannula oxygen and has continued to remain off of BiPap. This morning, the patient reports his breathing has been relatively unchanged. He does have some shortness of breath with exertion, but he was able to walk around with physical therapy (PT) yesterday and did fairly well with it. The patient was started on Mucomyst with albuterol nebulizers yesterday for pulmonary toilet and encouraged to use his incentive spirometer. He was able to expectorate some mucus occasionally, but does continue to have some difficulty with expectorating mucus. He denies any chest pain. He has not had any fevers or chills. No abdominal pain. No nausea or vomiting. No increase of lower extremity edema. The patient has not had a bowel movement yet, although he has only recently been able to have diet as he was nothing by mouth while on the BiPap. PHYSICAL EXAMINATION: Vitals: Temperature 97.1, pulse 97, respirations 24, blood pressure 118/60, O2 sat 94% on 14 liters a minute. Ins 1.6 liters, out 1.8 liters, net negative 145 mL. General: The patient is sitting in bed. He is able to speak in short sentences and does not appear to be in acute respiratory distress. With exertion, he does desaturate and have use of accessory muscles for respiration. HEENT: Normocephalic. Moist mucous membranes. There is a scabbed ulcer on the bridge of his nose. Cardiovascular: Regular rate and rhythm. Normal S1, S2. No murmurs appreciated. Pulmonary: There are coarse breath sounds bilaterally, somewhat diminished, particularly in the bases of the lungs. There is no wheezing noted. Abdomen: Soft, nontender, nondistended. Extremities: There is no lower extremity edema bilaterally. The patient does have some generalized weakness. LABORATORY DATA: WBC 5.8, hemoglobin 13.0, and platelets are 288. Chemistry: Sodium is 135, potassium 3.6, chloride is 92, bicarb 41, BUN 27, creatinine 0.8, glucose 103. ASSESSMENT AND PLAN: Mr. Hooper is a 74-year-old male with a past medical history of chronic obstructive pulmonary disease (COPD), hypertension, obstructive sleep apnea (TARAN) on C-PAP at home, who presented with worsening shortness breath and cough with acute hypoxemic respiratory failure. The patient was positive for COVID-19 and was also thought to have a superimposed bacterial pneumonia. The patient's hospital course was complicated by decompensated congestive heart failure (CHF) as well as acute respiratory distress syndrome (ARDS) and worsening hypoxemia requiring noninvasive positive pressure ventilation with BiPap. The patient was given Lasix for diuresis and had improvement in his CHF. He was also treated with antibiotics for his right lower lobe pneumonia with ceftriaxone which he completed a course of. The patient was also treated for his COVID pneumonia with hydroxychloroquine, azithromycin and tocilizumab with improvement in his inflammatory markers. The patient has been weaned off of BiPap to high-flow nasal cannula oxygen which he has been tolerating. - Will continue weaning the patient down on his nasal cannula oxygen. Would attempt to maintain an O2 sat of 86% on nasal cannula oxygen. If he has respiratory distress or desaturates to 80%, would place him back on BiPap if needed. - The patient likely does have a significant component of atelectasis contributing to some of his hypoxia. Will continue to encourage use of incentive spirometer as well as out of bed to chair and ambulation with PT. - The patient does have some thick mucus plugs that he is able to expectorate with some difficulty. Will continue with Mucomyst and albuterol for pulmonary clearance and will also add Acapella device to help with his pulmonary toilet. - The patient diuretics have been changed from Lasix IV to torsemide. Will continue with his torsemide twice a day and will continue monitor in his ins and outs and will attempt to keep patient net even. - Will continue to monitor his electrolytes and replete as needed. - Continue with nebulized Perforomist and budesonide given his history of COPD. - The patient did have episode of new atrial fibrillation during this admission which may be in the setting of his acute illness as well as with the administration of hydroxychloroquine and azithromycin. He has been in sinus rhythm since then and since receiving a dose of amiodarone. He was previously on Lovenox weight-based for prophylaxis, but was started on full-dose anticoagulation with Eliquis given his history of atrial fibrillation. - The patient has a history of TARAN. He was on C-PAP as an outpatient. However, given his nasal bridge pressure ulcer, will hold off on C-PAP for now for his sleep apnea. Deep vein thrombosis (DVT) prophylaxis. Full dose AC with Eliquis. GI prophylaxis. Protonix. Code status. Full code. Total care time spent not including procedures approximately 40 minutes. LINDYD
[2019-08-31] MEDS: SIMVASTATIN 20 MG TAB PO SCH (20:09)
[2019-08-31] MEDS: ASPIRIN 81 MG ENTERIC TAB PO SCH (20:09)
[2019-09-01] VITALS (9 sets, daily range): BP systolic 89–105; BP diastolic 55–58; O2SAT 87–97
[2019-09-01 05:46] LABS: BASO # 0.1 10^3/uL (0.0-0.2); BASO % 0.8 % (0.0-1.0); EOS # 0.2 10^3/uL (0.0-0.5); EOS % 2.5 % (0.0-3.0); HEMATOCRIT 41.9 % (42.0-52.0); HEMOGLOBIN 13.6 g/dl (13.5-17.5); LYMPH # 1.2 10^3/uL (1.5-5.0); LYMPH % 19.2 % (24.0-44.0); MEAN CORPUSCULAR HEMOGLOBIN 30.2 pg (27.0-33.0); MEAN CORPUSCULAR HGB CONC 32.5 g/dl (32.0-36.5); MEAN CORPUSCULAR VOLUME 92.9 fl (80.0-96.0); MONO # 0.5 10^3/uL (0.0-0.8); MONO % 7.9 % (0.0-5.0); NEUTROPHILS # 4.2 10^3/uL (1.5-8.5); NEUTROPHILS % 68.9 % (36.0-66.0); PLATELET COUNT, AUTOMATED 273 10^3/uL (150-450); RED BLOOD COUNT 4.51 10^6/uL (4.30-6.10); WHITE BLOOD COUNT 6.1 10^3/uL (4.0-10.0)
[2019-09-01 06:02] LABS: ALBUMIN 2.7 GM/DL (3.2-5.2); ALT/SGPT 45 U/L (12-78); BILIRUBIN,TOTAL 0.6 MG/DL (0.2-1.0); BLOOD UREA NITROGEN 32 MG/DL (7-18); CALCIUM LEVEL 8.7 MG/DL (8.8-10.2); CARBON DIOXIDE LEVEL 40 MEQ/L (21-32); CHLORIDE LEVEL 92 MEQ/L (98-107); CREATININE FOR GFR 1.12 MG/DL (0.70-1.30); GLOMERULAR FILTRATION RATE > 60.0 (>42); GLUCOSE, FASTING 104 MG/DL (70-100); POTASSIUM SERUM 3.9 MEQ/L (3.5-5.1); SODIUM LEVEL 137 MEQ/L (136-145); TOTAL PROTEIN 7.4 GM/DL (6.4-8.2)
[2019-09-01] MEDS: SLF 3 ML SYR IV SCH ×3 (06:04→20:44)
[2019-09-01] MEDS: FORMOTEROL FUMARATE 20 MCG/2 ML INHALATION SOLUTION (PERFOROMIST) INH SCH ×2 (07:33→20:23)
[2019-09-01] MEDS: ALBUTEROL SULFATE 2.5 MG/0.5 ML INH NEB SOLN NEB SCH ×3 (07:33→20:23)
[2019-09-01] MEDS: ACETYLCYSTEINE 20% 4 ML VIAL (200MG/ML) INH SCH ×3 (07:33→20:00)
[2019-09-01] MEDS: BUDESONIDE 0.5 MG/2 ML INHALATION SUSPENSION INH SCH ×2 (07:33→20:23)
[2019-09-01] MEDS: CHLORHEXIDINE GLUCONATE 0.12 % 15ML UDC (PERIDEX ORAL RINSE) SSP SCH ×2 (09:00→20:43)
[2019-09-01] MEDS: guaiFENesin SYRUP 200 MG/10 ML UDC PO PRN (09:23)
[2019-09-01] MEDS: POTASSIUM CHLORIDE 10 MEQ SR TABLET PO SCH ×2 (09:24→20:32)
[2019-09-01] MEDS: APIXABAN 5 MG TAB (ELIQUIS) PO SCH ×2 (09:24→20:31)
[2019-09-01] MEDS: PANTOPRAZOLE 40MG TAB (PROTONIX) PO SCH (09:24)
[2019-09-01] MEDS: TORSEMIDE 20 MG TAB PO SCH ×2 (09:24→16:23)
[2019-09-01] MEDS: CALCIUM/VITAMIN D 500 MG TAB PO SCH (09:24)
--- NOTE | 2019-09-01 09:30 | IPNPDOC ---
Text Note Date of Service The patient was seen on 09/01/19. NOTE Subjective: No any acute events overnight. Pt is on high flow oxygen most of the time. Patient is able to eat, he is participating in physical therapy. Objective: VITAL SIGNS: Please see below. GENERAL: awake, alert, breathing high flow oxygen HEENT: NCAT, anicteric sclera, LINDEN NECK: supple, no JVD CARDIOVASCULAR EXAMINATION: NS1S2 RESPIRATORY EXAMINATION: Bilateral rales at the bases ABDOMINAL EXAMINATION: positive bowel sounds x 4, NT EXTREMITIES: no cyanosis, clubbing, edema SKIN: warm, no rashes. NEUROLOGICAL EXAMINATION: AAO x 3, no motor/sensory deficits PSYCHIATRIC EXAMINATION: Anxious Patient is 74 years old male with past history of COPD, hyperlipidemia presented hospital with cough, fever. Patient states that he has been having symptoms for past 4-5 days. PCP sent him for COVID 19 test, which came back positive. Today patient has been having increasing shortness of breath. In ER patient was found to have a right lung infiltrate on the chest x-ray, his oxygen saturation was 88% he was placed on that 3 L of oxygen via nasal cannula. Also patient was found to have fever, but no leukocytosis. Problems (1) Sepsis Resolved Patient had dyspnea, tachycardia and fever on admission Secondary to viral infection. Fever subsided no leukocytosis IV fluid DC Azithromycin after seventh day and Ceftriaxone hydroxychloroquine discontinued due to cardiac arrhythmia Patient received 1 dose of tocilizumab c/w Tylenol, ibuprofen Pneumonia Secondary to COVID 19. There is a bacterial coinfection given increased pro- calcitonin level. Ceftriaxone started on 08/19/19. Completed 10 days course of ceftriaxone. DC azithromycin Continue BiPAP, high flow oxygen Continue inhalers Patient demonstrated slow improvement in his breathing. Acute hypoxemic respiratory failure Patient developed acute hypoxemic respiratory failure secondary to pneumonia due to COVID 19 with bacterial coinfection Currently patient stable on the BiPAP when he sleeps and on high oxygen flow when he is awake. His respiratory failure superimposed with underlying COPD and obesity ARDS Secondary to viral pneumonia due to COVID 19 with bacterial coinfection Imaging study positive for bilateral infiltrates PaO2/ Fio2 around 100 indicated severe ARDS. Will continue diuresis DC Lasix, continue torsemide Patient continues to slowly improve Coronavirus infection Follow COVID 19 protocol -monitor inflammatory markers, blood tests Patient received tocilizumab Fever Resolved currently Secondary to sepsis to viral infection Tylenol, ibuprofen Atrial fibrillation with rapid ventricular rate Heart rate is under control We changed Lovenox to Eliquis 5 mg twice a day. Most likely patient developed cardiac arrhythmia due to Hydrochloroquine, which was dc. Metoprolol IV when necessary PT/OT VS,Fishbone, I+O VS, Fishbone, I+O Laboratory Tests 09/01/19 05:00 Vital Signs Date Time Temp Pulse Resp B/P (MAP) Pulse Ox O2 Delivery O2 Flow Rate FiO2 09/01/19 04:00 87 High Flow Cannula 15.0 09/01/19 04:00 96.6 95 24 103/58 (73) 08/30/19 04:00 50 I&O- Last 24 Hours up to 6 AM 09/01/19 06:00 Intake Total 1890 ml Output Total 2750 ml Balance -860 ml SHAHZAD MCCLENDON Sep 01, 2019 09:29
--- NOTE | 2019-09-01 12:20 | CCN ---
DATE: 09/01/2019 The patient was seen and examined this morning during bedside rounds. The patient states his breathing has been slowly improving. He was able to ambulate yesterday with physical therapy (PT) about 40 feet yesterday and while he did get tired and have some desaturation into the 80s with ambulation, he did tolerate it fairly well. The patient has been continued on high-flow nasal cannula oxygen. Yesterday evening the patient was able to get a few hours of sleep and so he does feel more rested today. He has been having issues during his admission with insomnia. The patient is continued with pulmonary toilet with Mucomyst and albuterol nebulizer as well as with an acapella device and his incentive spirometer. Upon review of his of his incentive spirometer technique today, however, it appears the patient has not been using it with the proper technique as he was educated on previously. The patient does continue to have some occasional cough but he states he has not been expectorating mucus. He denies any chest pain, has not had any fevers or chills. No abdominal pain. No nausea or vomiting. No increased lower extremity mode. The patient has been passing gas but has not had a bowel movement yet. PHYSICAL EXAMINATION: VITALS: Temperature 96.6, pulse 95, respirations 24, blood pressure 103/58, O2 sat 87% on 15 liters a minute cannula. Input 1.7, output 2.6, net negative 830 mL GENERAL: Patient is sitting in bed. He is able to speak in short sentences, although he does appear to fatigue easily. He does not appear to be in acute respiratory distress at rest. HEENT: Normocephalic. There is moist mucous membranes. He has a scabbed ulcer on the bridge of his nose. Neck is supple. Trachea is midline. No palpable adenopathy. CARDIOVASCULAR: Regular rate and rhythm. Normal S1, and S2. Somewhat distant heart sounds with no murmurs appreciated. PULMONARY: There are some increased crackles in the bases of the lungs bilaterally with diminished breath sounds noted as well. There is some occasional expiratory wheeze and some rhonchi when coughing. ABDOMEN: Abdomen is soft, nontender, nondistended. No palpable mass. EXTREMITIES: There is no lower extremity edema bilaterally. LABS: WBC 6.1, hemoglobin 13.6, platelets of 273. Chemistry: Sodium is 137, potassium 3.9, chloride is 92, bicarb is 40, BUN 32, creatinine is 1.12, glucose 104. ASSESSMENT/PLAN: Mr. Hooper is a 74 old male with history of chronic obstructive pulmonary disease (COPD), hypertension, obstructive sleep apnea (TARAN) on CPAP who presented with increased shortness breath and cough with acute hypoxemic respiratory failure. The patient was found to be positive for COVID-19 and as well as thought to have a superimposed bacterial pneumonia. His hospital course was complicated by decompensated congestive heart failure (CHF) as well as acute respiratory distress syndrome (ARDS) and worsening hypoxic respiratory failure requiring noninvasive positive pressure ventilation with BiPAP. The patient was treated for his pneumonia with ceftriaxone which he completed and he was also given diuresis for his decompensated heart failure with some improvement. The patient also received treatment for his COVID pneumonia with hydroxychloroquine, azithromycin and tocilizumab with improvement in his inflammatory markers. His hypoxemic respiratory failure has also improved and he was weaned off of BiPAP to high-flow nasal cannula which he has continued to tolerate well. - Will continue on weaning down his nasal cannula oxygen supplementation as tolerated. Will attempt to maintain O2 sat 86% on nasal cannula oxygen. If he does have significant respirations distress, we can place him back on noninvasive positive pressure ventilation. - The patient has a history of sleep apnea. His CPAP was on hold given his pressure ulcer. As it appears to be healing, will attempt to place the patient on CPAP with the tabletop at his home settings tonight if tolerated. And we will attempt to get 4-5 hours at night tonight. - The patient does have evidence of atelectasis on imaging and does have some increased crackles on examination likely secondary to atelectasis as well as possible component of fibrotic disease from his ARDS. The patient was given incentive spirometer and agitation which he was using however, on review of his technique today appears he has not been doing it with the with the proper technique. We re-educated patient on incentive spirometer use and will continue to encourage the use of it as well as out of bed to chair and ambulation with PT to help with his atelectasis, which is likely contributing significantly to his hypoxia. - Will continue with pulmonary toilet techniques with albuterol Mucomyst nebulizers as well as with acapella device. - The patient's diuretics was change from Lasix to torsemide he did have significant urine output yesterday. His creatinine has increased slightly and so will decrease his torsemide 220 mg twice a day and will monitor his ins and outs. Will attempt to keep patient net even or a very mildly negative. He may need only one dose of torsemide daily. - Will continue to monitor electrolytes and replete as needed - The patient has a Das catheter in place. We discussed a trial of void, however, the patient feels he is not strong enough yet from a respiratory standpoint to remove the Das. Will continue to address this with the patient. He can also have a condom catheter as well for monitoring his urine output instead of an indwelling catheter. - Continue with nebulized PERFOROMIST and budesonide, given his history of COPD. Deep venous thrombosis (DVT) prophylaxis full-dose AC with Eliquis Gastrointestinal prophylaxis: Protonix. CODE STATUS: FULL CODE. Total critical care time spent not including procedures approximately 50 minutes.
[2019-09-01] MEDS: DOCUSATE SODIUM 100 MG CAP PO PRN (18:14)
[2019-09-01] MEDS ORDERED: BISACODYL 10 MG SUPP As Ordered ONE (18:50)
[2019-09-01] MEDS: BISACODYL 10 MG SUPP PR PRN (18:56)
[2019-09-01] MEDS: ACETAMINOPHEN TAB 650MG DOSE (2X325MG) PO PRN (18:56)
[2019-09-01] MEDS ORDERED: FLEET ENEMA PR PRN (19:30)
[2019-09-01] MEDS: ASPIRIN 81 MG ENTERIC TAB PO SCH (20:31)
[2019-09-01] MEDS: RAMELTEON 8 MG TAB (ROZEREM) PO SCH (20:32)
[2019-09-01] MEDS: SIMVASTATIN 20 MG TAB PO SCH (20:32)
[2019-09-02] VITALS (8 sets, daily range): BP systolic 97–137; BP diastolic 55–87; O2SAT 89–96
[2019-09-02] MEDS: BISACODYL 10 MG SUPP PR PRN (05:26)
[2019-09-02] MEDS: SLF 3 ML SYR IV SCH ×3 (05:26→21:14)
[2019-09-02] MEDS ORDERED: LIDOCAINE 2% JELLY 6 ML SYRINGE TOP PRN (05:45)
[2019-09-02] MEDS ORDERED: POLYETHYLENE GLYCOL (MIRALAX) 238GM BOTTLE PO ONE (05:45)
[2019-09-02] MEDS ORDERED: MIRALAX *UNIT DOSE* 17GM PACKET PO ONE (06:00)
[2019-09-02 06:28] LABS: ALBUMIN 2.8 GM/DL (3.2-5.2); ALT/SGPT 42 U/L (12-78); BILIRUBIN,TOTAL 0.7 MG/DL (0.2-1.0); BLOOD UREA NITROGEN 33 MG/DL (7-18); CALCIUM LEVEL 8.7 MG/DL (8.8-10.2); CARBON DIOXIDE LEVEL 38 MEQ/L (21-32); CHLORIDE LEVEL 94 MEQ/L (98-107); CREATININE FOR GFR 1.22 MG/DL (0.70-1.30); GLOMERULAR FILTRATION RATE > 60.0 (>42); GLUCOSE, FASTING 136 MG/DL (70-100); POTASSIUM SERUM 4.4 MEQ/L (3.5-5.1); SODIUM LEVEL 138 MEQ/L (136-145); TOTAL PROTEIN 6.8 GM/DL (6.4-8.2)
[2019-09-02] MEDS: ACETYLCYSTEINE 20% 4 ML VIAL (200MG/ML) INH SCH ×3 (07:50→19:43)
[2019-09-02] MEDS: FORMOTEROL FUMARATE 20 MCG/2 ML INHALATION SOLUTION (PERFOROMIST) INH SCH ×2 (07:50→19:40)
[2019-09-02] MEDS: ALBUTEROL SULFATE 2.5 MG/0.5 ML INH NEB SOLN NEB SCH ×3 (07:50→19:41)
[2019-09-02] MEDS: BUDESONIDE 0.5 MG/2 ML INHALATION SUSPENSION INH SCH ×2 (07:50→19:40)
[2019-09-02] MEDS: APIXABAN 5 MG TAB (ELIQUIS) PO SCH ×2 (08:11→20:31)
[2019-09-02] MEDS: CALCIUM/VITAMIN D 500 MG TAB PO SCH (08:11)
[2019-09-02] MEDS: PANTOPRAZOLE 40MG TAB (PROTONIX) PO SCH (08:11)
--- NOTE | 2019-09-02 09:53 | IPNPDOC ---
Text Note Date of Service The patient was seen on 09/02/19. NOTE Subjective: No any acute events overnight. Pt is on high flow oxygen most of the time. Patient is able to eat, he is participating in physical therapy. Patient developed good urine output. Patient had a large bowel movement in the morning. Objective: VITAL SIGNS: Please see below. GENERAL: awake, alert, breathing high flow oxygen HEENT: NCAT, anicteric sclera, LINDEN NECK: supple, no JVD CARDIOVASCULAR EXAMINATION: NS1S2 RESPIRATORY EXAMINATION: Bilateral rales at the bases ABDOMINAL EXAMINATION: positive bowel sounds x 4, NT EXTREMITIES: no cyanosis, clubbing, edema SKIN: warm, no rashes. NEUROLOGICAL EXAMINATION: AAO x 3, no motor/sensory deficits PSYCHIATRIC EXAMINATION: Anxious Patient is 74 years old male with past history of COPD, hyperlipidemia presented hospital with cough, fever. Patient states that he has been having symptoms for past 4-5 days. PCP sent him for COVID 19 test, which came back positive. Today patient has been having increasing shortness of breath. In ER patient was found to have a right lung infiltrate on the chest x-ray, his oxygen saturation was 88% he was placed on that 3 L of oxygen via nasal cannula. Also, patient was found to have fever, but no leukocytosis. Problems (1) Sepsis Resolved Patient had dyspnea, tachycardia and fever on admission Secondary to viral infection. Fever subsided no leukocytosis IV fluid DC Azithromycin after seventh day and Ceftriaxone hydroxychloroquine discontinued due to cardiac arrhythmia Patient received 1 dose of tocilizumab c/w Tylenol, ibuprofen Pneumonia Secondary to COVID 19. There is a bacterial coinfection given increased pro- calcitonin level. Ceftriaxone started on 08/19/19. Completed 10 days course of ceftriaxone. DC azithromycin Continue BiPAP, high flow oxygen Continue inhalers Patient demonstrated slow improvement in his breathing. Acute hypoxemic respiratory failure Patient developed acute hypoxemic respiratory failure secondary to pneumonia due to COVID 19 with bacterial coinfection Currently patient stable on the BiPAP when he sleeps and on high oxygen flow when he is awake. His respiratory failure superimposed with underlying COPD and obesity ARDS Secondary to viral pneumonia due to COVID 19 with bacterial coinfection Imaging study positive for bilateral infiltrates PaO2/ Fio2 around 100 indicated severe ARDS. Will continue diuresis DC Lasix, continue torsemide Patient continues to slowly improve Coronavirus infection Follow COVID 19 protocol -monitor inflammatory markers, blood tests Patient received tocilizumab Fever Resolved currently Secondary to sepsis to viral infection Tylenol, ibuprofen Atrial fibrillation with rapid ventricular rate Heart rate is under control We changed Lovenox to Eliquis 5 mg twice a day. Most likely patient developed cardiac arrhythmia due to Hydrochloroquine, which was dc. Metoprolol IV when necessary Constipation Resolved after Dulcolax suppositorium VS,Fishbone, I+O VS, Fishbone, I+O Laboratory Tests 09/02/19 05:37 Vital Signs Date Time Temp Pulse Resp B/P (MAP) Pulse Ox O2 Delivery O2 Flow Rate FiO2 09/02/19 08:00 90 High Flow Cannula 15.0 09/02/19 08:00 98.3 102 20 97/59 (72) 08/30/19 04:00 50 I&O- Last 24 Hours up to 6 AM 09/02/19 05:59 Intake Total 1980 ml Output Total 1835 ml Balance 145 ml SHAHZAD MCCLENDON DO Sep 02, 2019 09:53
[2019-09-02] MEDS: CHLORHEXIDINE GLUCONATE 0.12 % 15ML UDC (PERIDEX ORAL RINSE) SSP SCH (10:53)
--- NOTE | 2019-09-02 11:49 | CCN ---
DATE OF SERVICE: 09/02/2019 The patient was seen and examined this morning during bedside rounds. Yesterday, the patient was complaining of some increased constipation. He had not had any bowel movements for the past few days, although he also had just recently been able to advance his diet since being off of the bilateral positive airway pressure (BiPAP). Overnight, he did have a bowel movement, and he states the constipation has improved, although he does continue to feel that he still has some residual stool. In terms of his breathing, the patient has continued to require high-flow nasal cannula oxygen. Overnight, he did not wear his continuous positive airway pressure (CPAP) much due to his complaint of constipation. He was able to be weaned down to 10 liters nasal cannula overnight while sleeping. This morning with minimal exertion, he does desaturate, and so he has been needing anywhere from 12 liters a minute, sometimes higher, for his nasal cannula oxygen. The patient has continued using his incentive spirometer, although today he did not use it as much as he was using it yesterday. He is still continuing with pulmonary toilet with Mucomyst and albuterol nebulizer and with an acapella device. PHYSICAL EXAMINATION: Temperature 95.5, pulse 121, respirations 22, blood pressure 137/87, oxygen (O2) saturation 88% to 93% on 13 liters a minute nasal cannula. Intake 1.9 liters, out 1.8 liters, positive 170 mL General: The patient is lying in bed. He is sleeping. Is arousable, although he does drift back to sleep. Does not appear to be in acute respiratory distress at rest. HEENT: Normocephalic, atraumatic. There are moist mucous membranes. He does have a scabbed ulcer on the bridge of his nose. Neck is supple. Trachea is midline. No palpable adenopathy. Cardiovascular: Regular rate and rhythm. Normal S1 and S2. Somewhat distant heart sounds. No murmurs appreciated. Pulmonary: There are some diminished breath sounds bilaterally with crackles at the bases of the lung. There is no wheezing today. Abdomen: Soft, nontender, nondistended. No palpable mass. Extremities: There is no lower extremity edema bilaterally. LABORATORIES: Chemistry: Sodium is 138, potassium is 4.4, chloride is 94, bicarbonate is 38, BUN 33, creatinine is 1.22, glucose is 136. ASSESSMENT AND PLAN: Mr. Hooper is a 74-year-old male with a history of chronic obstructive pulmonary disease (COPD), hypertension, obstructive sleep apnea (TARAN) on home CPAP who presented with increased shortness of breath and cough with acute hypoxemic respiratory failure. The patient was found to be COVID-19 positive and also with a superimposed bacterial pneumonia. His hospital course was complicated by decompensated congestive heart failure (CHF), as well as worsening hypoxemic respiratory failure secondary to acute respiratory distress syndrome (ARDS). The patient was on noninvasive positive pressure ventilation. However, has been weaned off to high-flow nasal cannula oxygen. He completed antibiotic treatment for his pneumonia, as well as treatment for his COVID-19 pneumonia, with hydroxychloroquine, azithromycin, and tocilizumab with improvement in his inflammatory markers. - Will continue to attempt weaning the patient down on his nasal cannula oxygen supplementation. At rest, he is able to go down to 10 liters a minute nasal cannula oxygen or sometimes lower. However, with exertion he does have significant desaturation. The patient likely does have a component of some fibrosis secondary to his ARDS, as well as atelectasis, contributing to his hypoxemia. - Will attempt to maintain O2 saturation of 86% or higher on nasal cannula oxygen. - Will continue to encourage incentive spirometer use, as well as out of bed to chair and ambulation with physical therapy (PT) and occupational therapy (OT). - Will continue with pulmonary toilet techniques with albuterol and Mucomyst nebulizers, as well as with acapella device. - The patient has a history of sleep apnea. His CPAP had been on hold due to his nasal bridge pressure ulcer. We attempted to restart his home CPAP with a tabletop yesterday evening. However, he had some difficulty tolerating it due to the constipation. Will continue to attempt to use CPAP at night for his sleep apnea if tolerated. - The patient's torsemide had been decreased yesterday, as he was having some increase in his creatinine. Today, he has further increase in creatinine with some mild acute kidney injury. Will hold his torsemide and continue to monitor his intake and output. - Will continue to monitor electrolytes and replete as needed. His potassium chloride supplementation will be on hold as his diuretics are on hold. - The patient has a Das catheter in place. Will continue to address with the patient about removing the Das for a trial of void. He has some concerns with using a urinal due to his shortness of breath with exertion. If needed, after the Das is removed, we can always use a condom catheter for monitoring his urine output. - Continue with his nebulized Perforomist and budesonide given his history of COPD. - Continue with bowel regimen as needed for his constipation. Deep venous thrombosis (DVT) prophylaxis, full-dose AC with Eliquis for his new-onset AFib. Gastrointestinal (GI) prophylaxis, Protonix. CODE STATUS: FULL CODE. TOTAL CRITICAL CARE TIME SPENT: Not including procedures, approximately 35 minutes. MTDD
[2019-09-02] MEDS: ASPIRIN 81 MG ENTERIC TAB PO SCH (20:31)
[2019-09-02] MEDS: SIMVASTATIN 20 MG TAB PO SCH (20:31)
[2019-09-02] MEDS: RAMELTEON 8 MG TAB (ROZEREM) PO SCH (20:31)
[2019-09-02] MEDS: DOCUSATE SODIUM 100 MG CAP PO PRN (20:32)
[2019-09-03] VITALS (8 sets, daily range): BP systolic 103–119; BP diastolic 50–61; O2SAT 90–97
[2019-09-03] MEDS: SLF 3 ML SYR IV SCH ×3 (05:33→20:26)
[2019-09-03 05:35] LABS: BASO # 0.1 10^3/uL (0.0-0.2); BASO % 1.3 % (0.0-1.0); EOS # 0.3 10^3/uL (0.0-0.5); HEMATOCRIT 40.5 % (42.0-52.0); HEMOGLOBIN 13.1 g/dl (13.5-17.5); LYMPH # 1.2 10^3/uL (1.5-5.0); MEAN CORPUSCULAR HEMOGLOBIN 30.9 pg (27.0-33.0); MEAN CORPUSCULAR HGB CONC 32.3 g/dl (32.0-36.5); MEAN CORPUSCULAR VOLUME 95.5 fl (80.0-96.0); MONO # 0.7 10^3/uL (0.0-0.8); MONO % 12.1 % (0.0-5.0); NEUTROPHILS # 3.2 10^3/uL (1.5-8.5); NEUTROPHILS % 58.9 % (36.0-66.0); PLATELET COUNT, AUTOMATED 228 10^3/uL (150-450); RED BLOOD COUNT 4.24 10^6/uL (4.30-6.10); WHITE BLOOD COUNT 5.4 10^3/uL (4.0-10.0)
[2019-09-03 05:55] LABS: BLOOD UREA NITROGEN 25 MG/DL (7-18); CALCIUM LEVEL 8.1 MG/DL (8.8-10.2); CARBON DIOXIDE LEVEL 40 MEQ/L (21-32); CHLORIDE LEVEL 96 MEQ/L (98-107); GLOMERULAR FILTRATION RATE > 60.0 (>42); GLUCOSE, FASTING 99 MG/DL (70-100); POTASSIUM SERUM 4.2 MEQ/L (3.5-5.1); SODIUM LEVEL 139 MEQ/L (136-145)
[2019-09-03] MEDS: BUDESONIDE 0.5 MG/2 ML INHALATION SUSPENSION INH SCH ×2 (07:22→19:38)
[2019-09-03] MEDS: FORMOTEROL FUMARATE 20 MCG/2 ML INHALATION SOLUTION (PERFOROMIST) INH SCH ×2 (07:23→19:39)
[2019-09-03] MEDS: ALBUTEROL SULFATE 2.5 MG/0.5 ML INH NEB SOLN NEB SCH ×3 (07:23→19:39)
[2019-09-03] MEDS: ACETYLCYSTEINE 20% 4 ML VIAL (200MG/ML) INH SCH (07:23)
[2019-09-03] MEDS: APIXABAN 5 MG TAB (ELIQUIS) PO SCH ×2 (09:27→20:20)
[2019-09-03] MEDS: CALCIUM/VITAMIN D 500 MG TAB PO SCH (09:27)
[2019-09-03] MEDS: PANTOPRAZOLE 40MG TAB (PROTONIX) PO SCH (09:27)
--- NOTE | 2019-09-03 10:31 | IPNPDOC ---
Text Note Date of Service The patient was seen on 09/03/19. NOTE Subjective: No any acute events overnight. Pt is on high flow oxygen most of the time. Patient is able to eat, he is participating in physical therapy. Patient developed good urine output. Objective: VITAL SIGNS: Please see below. GENERAL: awake, alert, breathing high flow oxygen HEENT: NCAT, anicteric sclera, LINDEN NECK: supple, no JVD CARDIOVASCULAR EXAMINATION: NS1S2 RESPIRATORY EXAMINATION: Diminished lung sounds bilaterally ABDOMINAL EXAMINATION: positive bowel sounds x 4, NT EXTREMITIES: no cyanosis, clubbing, edema SKIN: warm, no rashes. NEUROLOGICAL EXAMINATION: AAO x 3, no motor/sensory deficits Patient is 74 years old male with past history of COPD, hyperlipidemia presented hospital with cough, fever. Patient states that he has been having symptoms for past 4-5 days. PCP sent him for COVID 19 test, which came back positive. Today patient has been having increasing shortness of breath. In ER patient was found to have a right lung infiltrate on the chest x-ray, his oxygen saturation was 88% he was placed on that 3 L of oxygen via nasal cannula. Also, patient was found to have fever, but no leukocytosis. Problems (1) Sepsis Resolved Patient had dyspnea, tachycardia and fever on admission Secondary to viral infection. Fever subsided no leukocytosis IV fluid DC Azithromycin after seventh day and Ceftriaxone hydroxychloroquine discontinued due to cardiac arrhythmia Patient received 1 dose of tocilizumab c/w Tylenol, ibuprofen Pneumonia Secondary to COVID 19. There is a bacterial coinfection given increased pro- calcitonin level. Ceftriaxone started on 08/19/19. Completed 10 days course of ceftriaxone. DC azithromycin Continue BiPAP, high flow oxygen Continue inhalers Patient demonstrated slow improvement in his breathing. Acute hypoxemic respiratory failure Patient developed acute hypoxemic respiratory failure secondary to pneumonia due to COVID 19 with bacterial coinfection Currently patient stable on the BiPAP when he sleeps and on high oxygen flow when he is awake. His respiratory failure superimposed with underlying COPD and obesity ARDS Secondary to viral pneumonia due to COVID 19 with bacterial coinfection Imaging study positive for bilateral infiltrates PaO2/ Fio2 around 100 indicated severe ARDS. DC Lasix, DC torsemide Patient continues to slowly improve Coronavirus infection Follow COVID 19 protocol -monitor inflammatory markers, blood tests Patient received tocilizumab Fever Resolved currently Secondary to sepsis to viral infection Tylenol, ibuprofen Atrial fibrillation with rapid ventricular rate Heart rate is under control We changed Lovenox to Eliquis 5 mg twice a day. Most likely patient developed cardiac arrhythmia due to Hydrochloroquine, which was dc. Metoprolol IV when necessary Constipation Resolved after Dulcolax suppositorium VS,Fishbone, I+O VS, Fishbone, I+O Laboratory Tests 09/03/19 05:24 Vital Signs Date Time Temp Pulse Resp B/P (MAP) Pulse Ox O2 Delivery O2 Flow Rate FiO2 09/03/19 08:20 92 Nasal Cannula 10.0 09/03/19 08:00 96.0 93 20 109/57 (74) 08/30/19 04:00 50 I&O- Last 24 Hours up to 6 AM 09/03/19 06:00 Intake Total 980 ml Output Total 1060 ml Balance -80 ml SHAHZAD MCCLENDON Sep 03, 2019 10:31
[2019-09-03] MEDS: SODIUM CHLORIDE HYPERTONIC 3% 15ML NEB SOL INH SCH ×3 (12:01→19:39)
--- NOTE | 2019-09-03 12:02 | CCN ---
DATE: 09/03/2019 CRITICAL CARE PROGRESS NOTE: The patient was seen and examined this morning during bedside rounds. This morning the patient feels he is doing better as he was able to have a bowel movement and his constipation has improved. In terms of his breathing, he feels his breathing may also be doing slightly better as well. He has been able to be weaned down on his nasal cannula oxygen this morning from 10 liters a minute to 8 liters a minute. He does continue to have some cough occasionally, although he states he has not been able to bring up the thick clots of mucus that he previously has. He feels some of his mucus may be improving. He did have an episode this morning where he blew his nose and he had some thick blood clots and blood. He has not any fevers or chills. No increased lower extremity edema. PHYSICAL EXAMINATION: Temperature 97.6, pulse 87, respirations 18, blood pressure 108/61, oxygen saturation 93% on 8 liters a minute. Ins 820, outs 905, net negative 130 mL. General: The patient is sitting in a chair, is awake and alert. Is able to speak in short sentences and does not appear to be in acute respiratory distress at rest. HEENT: Normocephalic, atraumatic. There is moist mucous membranes. He has a scabbed ulcer on the bridge of the nose and he has some dried blood in his nares. Neck is supple. Trachea is midline. There is no palpable adenopathy. Cardiovascular: Regular rate and rhythm. Normal S1, S2. Somewhat distant heart sounds. No murmurs appreciated. Pulmonary: There are diminished breath sounds bilaterally with faint crackles at the base of the lung. No wheezing or rhonchi. Abdomen is soft, nontender, nondistended. No palpable mass. Extremities: There is no lower extremity bilaterally. LABORATORY DATA: WBC 5.4, hemoglobin 30.1, platelets 228. Chemistry: Sodium is 139, potassium 4.2, chloride 96, bicarbonate 40, BUN 25, creatinine 0.90, glucose 99, calcium is 8.1. ASSESSMENT AND PLAN: Mr. Hooper is 74-year-old male with history of chronic obstructive pulmonary disease (COPD), hypertension, obstructive sleep apnea (TARAN) on continuous positive airway pressure (CPAP) who presented with increased shortness breath and cough with acute hypoxemic respiratory failure. The patient was found to have COVID-19 positive as well as a superimposed bacterial pneumonia. His hospital course was complicated by decompensated congestive heart failure (CHF) as well as worsening hypoxemic respiratory failure secondary to acute respiratory distress syndrome (ARDS). The patient had required noninvasive positive pressure ventilation, however has been weaned off to the high-flow nasal cannula oxygen which he has been tolerating. He completed antibiotic treatment for his pneumonia as well as Lasix for diuresis for his heart failure. He also completed treatment for COVID-19 with hydroxychloroquine, azithromycin, and tocilizumab with improvement in his inflammatory markers. - Will continue to wean down the patient on his nasal cannula oxygen supplementation as tolerated. Will attempt to maintain his oxygen saturation above 86% while weaning. - Will continue to encourage incentive spirometer use as well as out of bed to chair and ambulation with physical therapy (PT), occupational therapy (OT) to help with his atelectasis which is likely contributing to his hypoxemia. The patient also may have a component pulmonary fibrosis secondary to his ARDS as well. - Will continue with pulmonary toilet. Will discontinue Mucomyst and start him on hypertonic saline instead as he was having some bronchospasm with Mucomyst. Will continue with hypertonic saline and albuterol nebulizers three times a day with Acapella device for now. - Will give the patient saline nasal spray to help humidify his nasal passages and continue with humidified nasal cannula supplementation. - Will continue the patient on CPAP at night on his home settings of via the tabletop. Will attempt to use CPAP for 4 hours at least as tolerated. He does have a healing nasal bridge pressure ulcer. - Will discontinue torsemide. He is having good urine output off of the torsemide and his acute kidney injury (JOEL) has improved. Will also discontinue his potassium supplementation. - Will remove the patient's Das catheter and continue him with a trial of void. - Continue with bowel regimen for his history of constipation. - Continue with nebulized Perforomist and budesonide for history of COPD. Deep venous thrombosis (DVT) prophylaxis full-dose AC with Eliquis for his new onset atrial fibrillation (AFib). Gastrointestinal (GI) prophylaxis with Protonix. CODE STATUS: FULL CODE. Total care time spent not including procedures approximately 35 minutes. MTDD
[2019-09-03] MEDS: DOCUSATE SODIUM 100 MG CAP PO SCH (12:14)
[2019-09-03] MEDS: SODIUM CHLORIDE NASAL 0.65% SPRAY BTL (OCEAN) SCH ×2 (13:54→20:26)
[2019-09-03] MEDS: ASPIRIN 81 MG ENTERIC TAB PO SCH (20:20)
[2019-09-03] MEDS: SIMVASTATIN 20 MG TAB PO SCH (20:20)
[2019-09-03] MEDS: RAMELTEON 8 MG TAB (ROZEREM) PO SCH (20:21)
[2019-09-03] MEDS: MIRALAX *UNIT DOSE* 17GM PACKET PO PRN (20:24)
[2019-09-04] VITALS: BP 113/56; O2SAT 93
[2019-09-04] MEDS: IBUPROFEN 200 MG TAB PO PRN ×2 (00:41→08:22)
[2019-09-04 04:00] VITALS: BP 107/51; O2SAT 91
[2019-09-04] MEDS: SLF 3 ML SYR IV SCH ×3 (05:04→21:21)
[2019-09-04 05:28] LABS: BLOOD UREA NITROGEN 30 MG/DL (7-18); CALCIUM LEVEL 8.2 MG/DL (8.8-10.2); CARBON DIOXIDE LEVEL 37 MEQ/L (21-32); CHLORIDE LEVEL 95 MEQ/L (98-107); CREATININE FOR GFR 0.92 MG/DL (0.70-1.30); GLOMERULAR FILTRATION RATE > 60.0 (>42); GLUCOSE, FASTING 94 MG/DL (70-100); POTASSIUM SERUM 3.5 MEQ/L (3.5-5.1); SODIUM LEVEL 137 MEQ/L (136-145)
[2019-09-04] MEDS: BUDESONIDE 0.5 MG/2 ML INHALATION SUSPENSION INH SCH ×2 (07:30→20:11)
[2019-09-04] MEDS: SODIUM CHLORIDE HYPERTONIC 3% 15ML NEB SOL INH SCH ×4 (07:30→20:11)
[2019-09-04] MEDS: FORMOTEROL FUMARATE 20 MCG/2 ML INHALATION SOLUTION (PERFOROMIST) INH SCH ×2 (07:30→20:11)
[2019-09-04] MEDS ORDERED: POTASSIUM CHLORIDE 10 MEQ SR TABLET PO ONE (07:30)
[2019-09-04] MEDS: ALBUTEROL SULFATE 2.5 MG/0.5 ML INH NEB SOLN NEB SCH ×3 (07:32→20:00)
[2019-09-04 08:00] VITALS: O2SAT 88
[2019-09-04] MEDS: CALCIUM/VITAMIN D 500 MG TAB PO SCH (08:20)
[2019-09-04] MEDS: PANTOPRAZOLE 40MG TAB (PROTONIX) PO SCH (08:21)
[2019-09-04] MEDS: SODIUM CHLORIDE NASAL 0.65% SPRAY BTL (OCEAN) SCH (08:21)
[2019-09-04] MEDS: APIXABAN 5 MG TAB (ELIQUIS) PO SCH ×2 (08:21→21:19)
[2019-09-04] MEDS: DOCUSATE SODIUM 100 MG CAP PO SCH (08:21)
[2019-09-04 08:39] VITALS: BP 114/57
[2019-09-04 12:32] LABS: URIC ACID 6.8 MG/DL (3.5-7.2)
--- NOTE | 2019-09-04 12:41 | CCN ---
DATE: 09/04/2019 CRITICAL CARE PROGRESS NOTE: The patient was seen and examined this morning during bedside rounds. The patient states his breathing has been improving. He has been weaned down on his nasal cannula oxygen to 3 liters a minute. He was ambulating with physical therapy (PT) and he did have some dyspnea with ambulation. On 3 liters a minute he did desaturate briefly into the 70s, but he does recover after a few minutes of rest. He denies any chest pain, has not had any fevers or chills, and no increased lower extremity edema. He was able to bring up some mucus with his hypertonic saline nebulizer treatment today. He has been compliant with the Acapella device as well as using his incentive spirometer and has been able to take deeper breaths than he previously was. He did have an episode of nose bleeding last night with the saline nasal spray. He did attempt to use his continuous positive airway pressure (CPAP) last night but had some difficulty with the nose bleeding. PHYSICAL EXAMINATION: Temperature 96.2, pulse 76, respirations 19, blood pressure 107/51, oxygen saturation 93% on 3 liters nasal cannula. Ins 1.3 liters, out 955 mL. General: The patient is sitting in a chair, is awake and alert, is not in acute respiratory distress. Is able to speak in short sentences. HEENT: Normocephalic, atraumatic. There are moist mucous membranes. The patient has a scabbed ulcer in the bridge of his nose and some dried blood in his nares. Neck is supple. Trachea is midline. There is no palpable adenopathy. Cardiovascular: Regular rate and rhythm. Normal S1, S2 and somewhat distant heart sounds. No murmurs appreciated. Pulmonary: There are diminished breath sounds bilaterally with faint crackles at base of the lung. No wheezing or rhonchi noted. Abdomen is soft, nontender, nondistended. No palpable mass. Extremities: There is no lower extremity edema bilaterally. LABORATORY DATA: Chemistry: Sodium is 137, potassium 3.5, chloride is 95, bicarbonate is 37, BUN 30, creatinine 0.92, glucose is 94. ASSESSMENT AND PLAN: Mr. Hooper is a 74-year-old male with history of chronic obstructive pulmonary disease (COPD), hypertension, obstructive sleep apnea (TARAN) on CPAP who presented with increased shortness breath and cough with acute hypoxemic respiration. The patient was found to be COVID-19 positive and had a superimposed bacterial pneumonia as well. His hospital course was complicated by decompensated congestive heart failure (CHF) as well as worsening hypoxemic respiratory failure secondary to acute respiratory distress syndrome (ARDS). The patient had required noninvasive positive pressure ventilation initially, however had been weaned off initially to high-flow nasal cannula oxygen supplementation and has continued to improve. He completed treatment for his pneumonia as well as completed diuresis for pulmonary edema. He also completed treatment for COVID- 19 as well with improvement in inflammatory markers. - The patient's oxygenation has been improving. He is weaned down now to 3 liters a minute of nasal cannula oxygen humidified. Will continue weaning his nasal cannula oxygen as tolerated to maintain an oxygen saturation above 87-88%. Continue with humidified nasal cannula oxygen. With ambulation the patient likely does require higher amounts of supplemental oxygen such as 4 or 5 liters a minute. - Continue to encourage incentive spirometer use as well as out of bed to chair and ambulation with physical therapy. - The patient is on hypertonic saline nebulizers and albuterol three times a day with the Acapella device for pulmonary toilet. Can continue for now three times a day and can likely change to as needed as he is improving with his mucus production. - The patient was prescribed saline nasal spray given his nosebleeds with his nasal cannula oxygen. Will change his saline nasal sprays to twice a day as needed. - Will continue the patient on home CPAP with the tabletop at night as tolerated. - The patient's Das catheter was removed and he has been voiding well. - The patient complaining of some pain in his right big toe. He denies a previous history of gout, but the patient may have gout versus pseudogout. Would consider adding colchicine for treatment. Can continue with ibuprofen as needed for his pain. will check uric acid level - Continue bowel regimen for his history of constipation. - Continue with nebulized Perforomist and budesonide for his history of COPD. Deep venous thrombosis (DVT) prophylaxis, Eliquis for his new onset atrial fibrillation. Gastrointestinal (GI) prophylaxis, Protonix. CODE STATUS: FULL CODE. Total critical care time spent not including procedures approximately 35 minutes. The patient can followup with pulmonary after discharge in 1-2 weeks. He likely will require supplemental oxygen upon discharge. [facility]
--- NOTE | 2019-09-04 13:24 | IPNPDOC ---
Text Note Date of Service The patient was seen on 09/04/19. NOTE Subjective: No any acute events overnight. Patient's breathing status markedly improved, he is currently is on 3 to 4 L of oxygen. Patient was able to void after Das removal Objective: VITAL SIGNS: Please see below. GENERAL: awake, alert, breathing high flow oxygen HEENT: NCAT, anicteric sclera, LINDEN NECK: supple, no JVD CARDIOVASCULAR EXAMINATION: NS1S2 RESPIRATORY EXAMINATION: Diminished lung sounds bilaterally ABDOMINAL EXAMINATION: positive bowel sounds x 4, NT EXTREMITIES: no cyanosis, clubbing, edema SKIN: warm, no rashes. NEUROLOGICAL EXAMINATION: AAO x 3, no motor/sensory deficits Patient is 74 years old male with past history of COPD, hyperlipidemia presented hospital with cough, fever. Patient states that he has been having symptoms for past 4-5 days. PCP sent him for COVID 19 test, which came back positive. Today patient has been having increasing shortness of breath. In ER patient was found to have a right lung infiltrate on the chest x-ray, his oxygen saturation was 88% he was placed on that 3 L of oxygen via nasal cannula. Also, patient was found to have fever, but no leukocytosis. During hospital stay patient developed ARDS, he was treated with BiPAP, antibiotics for bacterial infection, hydroxychloroquine and tocilizumab with positive dynamics. On 09/04/19 patient's breathing status markedly improved. Await ARU placement Problems (1) Sepsis Resolved Patient had dyspnea, tachycardia and fever on admission Secondary to viral infection. Fever subsided no leukocytosis IV fluid DC Azithromycin after seventh day and Ceftriaxone hydroxychloroquine discontinued due to cardiac arrhythmia Patient received 1 dose of tocilizumab c/w Tylenol, ibuprofen Pneumonia Secondary to COVID 19. There is a bacterial coinfection given increased pro- calcitonin level. Ceftriaxone started on 08/19/19. Completed 10 days course of ceftriaxone. DC azithromycin Continue inhalers Patient demonstrated good improvement in his breathing. Acute hypoxemic respiratory failure Patient developed acute hypoxemic respiratory failure secondary to pneumonia due to COVID 19 with bacterial coinfection ARDS Secondary to viral pneumonia due to COVID 19 with bacterial coinfection Imaging study positive for bilateral infiltrates PaO2/ Fio2 around 100 indicated severe ARDS. DC Lasix, DC torsemide Patient continues to improve. Coronavirus infection Follow COVID 19 protocol -monitor inflammatory markers, blood tests Patient received tocilizumab Patient will be transferred to ARU Fever Resolved currently Secondary to sepsis to viral infection Tylenol, ibuprofen Atrial fibrillation with rapid ventricular rate Heart rate is under control We changed Lovenox to Eliquis 5 mg twice a day. Most likely patient developed cardiac arrhythmia due to Hydrochloroquine, which was dc. Metoprolol IV when necessary Constipation Resolved after Dulcolax suppositorium PT/OT VS,Fishbone, I+O VS, Fishbone, I+O Laboratory Tests 09/04/19 04:47 Vital Signs Date Time Temp Pulse Resp B/P (MAP) Pulse Ox O2 Delivery O2 Flow Rate FiO2 09/04/19 08:39 97.4 86 20 114/57 (76) 88 Nasal Cannula 3.0 08/30/19 04:00 50 I&O- Last 24 Hours up to 6 AM 09/04/19 06:00 Intake Total 1190 ml Output Total 625 ml Balance 565 ml SHAHZAD MCCLENDON DO Sep 04, 2019 13:24
[2019-09-04 15:38] VITALS: BP 102/53
[2019-09-04] MEDS ORDERED: SODIUM CHLORIDE NASAL 0.65% SPRAY BTL (OCEAN) PRN (15:45)
[2019-09-04 20:00] VITALS: BP 118/57
[2019-09-04] MEDS: SIMVASTATIN 20 MG TAB PO SCH (21:17)
[2019-09-04] MEDS: RAMELTEON 8 MG TAB (ROZEREM) PO SCH (21:18)
[2019-09-04] MEDS: ASPIRIN 81 MG ENTERIC TAB PO SCH (21:18)
[2019-09-04] MEDS: ACETAMINOPHEN TAB 650MG DOSE (2X325MG) PO PRN (21:19)
[2019-09-04] MEDS: MIRALAX *UNIT DOSE* 17GM PACKET PO PRN (21:20)
[2019-09-05 04:00] VITALS: BP 128/60
[2019-09-05 05:03] LABS: BASO # 0.1 10^3/uL (0.0-0.2); BASO % 1.2 % (0.0-1.0); EOS # 0.2 10^3/uL (0.0-0.5); EOS % 5.9 % (0.0-3.0); HEMATOCRIT 35.8 % (42.0-52.0); HEMOGLOBIN 11.5 g/dl (13.5-17.5); LYMPH % 23.7 % (24.0-44.0); MEAN CORPUSCULAR HEMOGLOBIN 30.3 pg (27.0-33.0); MEAN CORPUSCULAR HGB CONC 32.1 g/dl (32.0-36.5); MEAN CORPUSCULAR VOLUME 94.2 fl (80.0-96.0); MONO # 0.4 10^3/uL (0.0-0.8); MONO % 9.8 % (0.0-5.0); NEUTROPHILS # 2.4 10^3/uL (1.5-8.5); NEUTROPHILS % 57.9 % (36.0-66.0); PLATELET COUNT, AUTOMATED 178 10^3/uL (150-450); WHITE BLOOD COUNT 4.1 10^3/uL (4.0-10.0)
[2019-09-05 05:14] LABS: BLOOD UREA NITROGEN 23 MG/DL (7-18); CALCIUM LEVEL 8.6 MG/DL (8.8-10.2); CARBON DIOXIDE LEVEL 34 MEQ/L (21-32); CHLORIDE LEVEL 98 MEQ/L (98-107); CREATININE FOR GFR 0.74 MG/DL (0.70-1.30); GLOMERULAR FILTRATION RATE > 60.0 (>42); GLUCOSE, FASTING 92 MG/DL (70-100); POTASSIUM SERUM 3.9 MEQ/L (3.5-5.1); SODIUM LEVEL 138 MEQ/L (136-145)
[2019-09-05] MEDS: BUDESONIDE 0.5 MG/2 ML INHALATION SUSPENSION INH SCH ×2 (07:26→19:32)
[2019-09-05] MEDS: ALBUTEROL SULFATE 2.5 MG/0.5 ML INH NEB SOLN NEB SCH ×3 (07:26→19:33)
[2019-09-05] MEDS: FORMOTEROL FUMARATE 20 MCG/2 ML INHALATION SOLUTION (PERFOROMIST) INH SCH ×2 (07:26→19:32)
[2019-09-05 07:27] VITALS: O2SAT 95
[2019-09-05] MEDS: SODIUM CHLORIDE HYPERTONIC 3% 15ML NEB SOL INH SCH ×3 (07:27→19:32)
[2019-09-05 08:00] VITALS: BP 108/50
[2019-09-05] MEDS: SLF 3 ML SYR IV SCH ×3 (08:31→21:00)
[2019-09-05] MEDS: CALCIUM/VITAMIN D 500 MG TAB PO SCH (08:31)
[2019-09-05] MEDS: APIXABAN 5 MG TAB (ELIQUIS) PO SCH ×2 (08:31→20:12)
[2019-09-05] MEDS: DOCUSATE SODIUM 100 MG CAP PO SCH (08:32)
[2019-09-05] MEDS: MIRALAX *UNIT DOSE* 17GM PACKET PO PRN (08:32)
[2019-09-05] MEDS: PANTOPRAZOLE 40MG TAB (PROTONIX) PO SCH (08:32)
[2019-09-05] MEDS: IBUPROFEN 200 MG TAB PO PRN ×2 (08:51→20:15)
--- NOTE | 2019-09-05 11:03 | IPNPDOC ---
Text Note Date of Service The patient was seen on 09/05/19. NOTE Subjective: No any acute events overnight. Patient's breathing status continues to improve, he is currently is on 3 to 4 L of oxygen. Patient complains of right big toe pain Objective: VITAL SIGNS: Please see below. GENERAL: awake, alert, breathing high flow oxygen HEENT: NCAT, anicteric sclera, LINDEN NECK: supple, no JVD CARDIOVASCULAR EXAMINATION: NS1S2 RESPIRATORY EXAMINATION: Diminished lung sounds bilaterally ABDOMINAL EXAMINATION: positive bowel sounds x 4, NT EXTREMITIES: no cyanosis, clubbing, edema SKIN: warm, no rashes. NEUROLOGICAL EXAMINATION: AAO x 3, no motor/sensory deficits Patient is 74 years old male with past history of COPD, hyperlipidemia presented hospital with cough, fever. Patient states that he has been having symptoms for past 4-5 days. PCP sent him for COVID 19 test, which came back positive. Today patient has been having increasing shortness of breath. In ER patient was found to have a right lung infiltrate on the chest x-ray, his oxygen saturation was 88% he was placed on that 3 L of oxygen via nasal cannula. Also, patient was fou nd to have fever, but no leukocytosis. During hospital stay patient developed ARDS, he was treated with BiPAP, antibiotics for bacterial infection, hydroxychloroquine and tocilizumab with positive dynamics. On 09/04/19 patient's breathing status markedly improved. Await ARU placement Problems (1) Sepsis Resolved Patient had dyspnea, tachycardia and fever on admission Secondary to viral infection. Fever subsided no leukocytosis IV fluid DC Azithromycin after seventh day and Ceftriaxone hydroxychloroquine discontinued due to cardiac arrhythmia Patient received 1 dose of tocilizumab c/w Tylenol, ibuprofen Pneumonia Secondary to COVID 19. There is a bacterial coinfection given increased pro- calcitonin level. Ceftriaxone started on 08/19/19. Completed 10 days course of ceftriaxone. DC azithromycin Continue inhalers Patient demonstrated good improvement in his breathing. Acute hypoxemic respiratory failure Patient developed acute hypoxemic respiratory failure secondary to pneumonia due to COVID 19 with bacterial coinfection Patient completed the course of antibiotics ARDS Resolved Secondary to viral pneumonia due to COVID 19 with bacterial coinfection Imaging study positive for bilateral infiltrates PaO2/ Fio2 around 100 indicated severe ARDS. DC Lasix, DC torsemide Patient continues to improve. Coronavirus infection Followed COVID 19 protocol -monitor inflammatory markers, blood tests Patient received tocilizumab Patient will be transferred to ARU Fever Resolved currently Secondary to sepsis to viral infection Tylenol, ibuprofen Atrial fibrillation with rapid ventricular rate Heart rate is under control We changed Lovenox to Eliquis 5 mg twice a day. Most likely patient developed cardiac arrhythmia due to Hydrochloroquine, which was dc. Metoprolol IV when necessary Constipation Resolved after Dulcolax suppositorium MiraLAX when necessary Gout Continue ibuprofen colchicine by mouth We'll check uric acid PT/OT VS,Fishbone, I+O VS, Fishbone, I+O Laboratory Tests 09/05/19 04:19 Vital Signs Date Time Temp Pulse Resp B/P (MAP) Pulse Ox O2 Delivery O2 Flow Rate FiO2 09/05/19 07:27 95 Nasal Cannula 3.0 09/05/19 04:00 97.2 91 128/60 (82) 09/04/19 20:00 20 08/30/19 04:00 50 I&O- Last 24 Hours up to 6 AM 09/05/19 06:00 Intake Total 2120 ml Output Total 1470 ml Balance 650 ml SHAHZAD MCCLENDON DO Sep 05, 2019 11:03
[2019-09-05] MEDS: BISACODYL 10 MG SUPP PR PRN (11:51)
[2019-09-05 12:00] VITALS: BP 91/53
[2019-09-05] MEDS ORDERED: COLCHICINE 0.6 MG TAB PO ONE ×2 (12:00→13:00)
[2019-09-05 16:10] VITALS: O2SAT 96
[2019-09-05 20:00] VITALS: BP 111/56
[2019-09-05] MEDS: RAMELTEON 8 MG TAB (ROZEREM) PO SCH (20:12)
[2019-09-05] MEDS: ASPIRIN 81 MG ENTERIC TAB PO SCH (20:13)
[2019-09-05] MEDS: SIMVASTATIN 20 MG TAB PO SCH (20:13)
[2019-09-06 04:00] VITALS: BP 108/57
[2019-09-06] MEDS: ALBUTEROL SULFATE 2.5 MG/0.5 ML INH NEB SOLN NEB SCH ×3 (08:00→20:07)
[2019-09-06] MEDS: FORMOTEROL FUMARATE 20 MCG/2 ML INHALATION SOLUTION (PERFOROMIST) INH SCH ×2 (08:29→20:00)
[2019-09-06] MEDS: BUDESONIDE 0.5 MG/2 ML INHALATION SUSPENSION INH SCH ×2 (08:29→20:07)
[2019-09-06] MEDS: SODIUM CHLORIDE HYPERTONIC 3% 15ML NEB SOL INH SCH ×3 (08:29→20:07)
[2019-09-06 09:00] VITALS: BP 116/56
[2019-09-06] MEDS: COLCHICINE 0.6 MG TAB PO SCH ×2 (09:13→22:55)
[2019-09-06] MEDS: APIXABAN 5 MG TAB (ELIQUIS) PO SCH ×2 (09:13→21:22)
[2019-09-06] MEDS: CALCIUM/VITAMIN D 500 MG TAB PO SCH (09:13)
[2019-09-06] MEDS: PANTOPRAZOLE 40MG TAB (PROTONIX) PO SCH (09:13)
[2019-09-06] MEDS: DOCUSATE SODIUM 100 MG CAP PO SCH ×2 (09:13→21:22)
[2019-09-06 12:16] LABS: BASO % 0.8 % (0.0-1.0); EOS # 0.4 10^3/uL (0.0-0.5); EOS % 8.5 % (0.0-3.0); HEMATOCRIT 40.6 % (42.0-52.0); HEMOGLOBIN 12.8 g/dl (13.5-17.5); LYMPH # 0.8 10^3/uL (1.5-5.0); LYMPH % 17.5 % (24.0-44.0); MEAN CORPUSCULAR HEMOGLOBIN 30.5 pg (27.0-33.0); MEAN CORPUSCULAR HGB CONC 31.5 g/dl (32.0-36.5); MEAN CORPUSCULAR VOLUME 96.7 fl (80.0-96.0); MONO # 0.5 10^3/uL (0.0-0.8); MONO % 10.4 % (0.0-5.0); NEUTROPHILS # 2.9 10^3/uL (1.5-8.5); NEUTROPHILS % 60.9 % (36.0-66.0); PLATELET COUNT, AUTOMATED 190 10^3/uL (150-450); WHITE BLOOD COUNT 4.8 10^3/uL (4.0-10.0)
[2019-09-06 12:41] LABS: BLOOD UREA NITROGEN 17 MG/DL (7-18); CALCIUM LEVEL 8.4 MG/DL (8.8-10.2); CARBON DIOXIDE LEVEL 34 MEQ/L (21-32); CHLORIDE LEVEL 101 MEQ/L (98-107); CREATININE FOR GFR 0.81 MG/DL (0.70-1.30); GLOMERULAR FILTRATION RATE > 60.0 (>42); GLUCOSE, FASTING 106 MG/DL (70-100); SODIUM LEVEL 140 MEQ/L (136-145)
[2019-09-06 12:49] VITALS: BP 125/63
[2019-09-06] MEDS: ASPIRIN 81 MG ENTERIC TAB PO SCH (21:21)
[2019-09-06] MEDS: SIMVASTATIN 20 MG TAB PO SCH (21:21)
[2019-09-06 21:30] VITALS: BP 130/56
[2019-09-06] MEDS: RAMELTEON 8 MG TAB (ROZEREM) PO SCH (22:56)
[2019-09-07 06:00] VITALS: BP 129/66
[2019-09-07] MEDS: ALBUTEROL SULFATE 2.5 MG/0.5 ML INH NEB SOLN NEB SCH ×3 (08:00→19:17)
[2019-09-07] MEDS: SODIUM CHLORIDE HYPERTONIC 3% 15ML NEB SOL INH SCH ×3 (08:00→19:20)
[2019-09-07 08:10] LABS: BASO # 0.1 10^3/uL (0.0-0.2); BASO % 1.1 % (0.0-1.0); EOS # 0.3 10^3/uL (0.0-0.5); EOS % 7.1 % (0.0-3.0); HEMOGLOBIN 12.1 g/dl (13.5-17.5); LYMPH # 1.1 10^3/uL (1.5-5.0); LYMPH % 24.1 % (24.0-44.0); MEAN CORPUSCULAR HEMOGLOBIN 31.4 pg (27.0-33.0); MEAN CORPUSCULAR HGB CONC 32.7 g/dl (32.0-36.5); MEAN CORPUSCULAR VOLUME 96.1 fl (80.0-96.0); MONO # 0.5 10^3/uL (0.0-0.8); MONO % 10.2 % (0.0-5.0); NEUTROPHILS # 2.5 10^3/uL (1.5-8.5); NEUTROPHILS % 55.7 % (36.0-66.0); PLATELET COUNT, AUTOMATED 166 10^3/uL (150-450); RED BLOOD COUNT 3.85 10^6/uL (4.30-6.10); WHITE BLOOD COUNT 4.5 10^3/uL (4.0-10.0)
[2019-09-07] MEDS: COLCHICINE 0.6 MG TAB PO SCH ×2 (08:32→22:05)
[2019-09-07] MEDS: CALCIUM/VITAMIN D 500 MG TAB PO SCH (08:32)
[2019-09-07] MEDS: PANTOPRAZOLE 40MG TAB (PROTONIX) PO SCH (08:32)
[2019-09-07] MEDS: DOCUSATE SODIUM 100 MG CAP PO SCH (08:32)
[2019-09-07] MEDS: APIXABAN 5 MG TAB (ELIQUIS) PO SCH ×2 (08:32→22:06)
[2019-09-07 08:40] LABS: BLOOD UREA NITROGEN 18 MG/DL (7-18); CALCIUM LEVEL 7.9 MG/DL (8.8-10.2); CARBON DIOXIDE LEVEL 31 MEQ/L (21-32); CHLORIDE LEVEL 103 MEQ/L (98-107); CREATININE FOR GFR 0.79 MG/DL (0.70-1.30); GLOMERULAR FILTRATION RATE > 60.0 (>42); GLUCOSE, FASTING 118 MG/DL (70-100); POTASSIUM SERUM 3.8 MEQ/L (3.5-5.1); SODIUM LEVEL 141 MEQ/L (136-145)
--- NOTE | 2019-09-07 08:44 | IPN ---
DATE: 09/06/2019 SUBJECTIVE: Patient says his breathing is improved but still has some shortness of breath when he tries to take his oxygen off. Has been saturating 90-96% on 2 liters to 2-1/2 liters of oxygen. Cough has subsided. "Not coughing big chunks any more." No nausea, vomiting, abdominal pain. Patient walks from the bed to the bedside commode with no palpitations, lightheadedness, or dizziness. No abdominal pain. No fever or chills. No other issues per nursing. Stable for medical/surgical transfer. Awaiting acute rehabilitation unit (ARU) acceptance. Patient still complains of pain in big toe, improved with his colchicine. No diarrhea. Temperature 97.3, pulse 82, respiratory 20, blood pressure 108/57, 92% on 2 liters nasal cannula. In general, patient appears his stated age. He has multiple ecchymotic areas on bilateral arms. He is awake, alert, oriented. No conversational dyspnea. No jugular venous distention (JVD) or thyromegaly. Currently on 2 liters of oxygen. Anicteric sclerae. No jaundice. Neck is supple. No cervical lymphadenopathy. Lungs are diminished but clear to auscultation. No wheezing or rales. Heart: S1, S2, sinus rhythm with episodes of sinus tachycardia. No murmurs, rubs noted. Abdomen is soft, nontender, and nondistended. Positive bowel sounds times four quadrants. Extremities: No pitting edema, cyanosis, or clubbing. HOSPITAL MEDICATIONS: - colchicine- Colace- [place] nasal spray- MiraLAX- sodium chloride nasal three times a day- lidocaine- ramelteon- Fleet enema- Dulcolax- apixaban- Proventil- Robitussin- simvastatin- Protonix- Perforomist- Pulmicort- Advil- [place] D- acetaminophen- aspirin LABORATORY DATA: 09/05/2019 CBC, metabolic panel have been reviewed. Today's labs are still pending. ASSESSMENT AND PLAN: This is a 74-year-old male admitted on 08/17/2019 for complaints of cough, found to have COVID-19 positive with infiltrates on the right chest and hypoxia with 88% on room air. Patient has history of hyperlipidemia, history of tobacco abuse, tubular adenoma, and femoral stent and appendectomy in the past. Patient developed acute respiratory distress syndrome (ARDS) and was treated with bilevel positive airway pressure (BiPAP), antibiotics for bacterial infection, hydroxychloroquine, and tocilizumab with significant improvement. Awaiting acute rehabilitation unit transfer. IMPRESSION: 1. COVID-positive patient status post acute respiratory distress syndrome, requiring bilevel positive airway pressure therapy. Currently stable on 2 liters of oxygen. Managed by pulmonary. Patient had completed azithromycin and ceftriaxone. Hydroxychloroquine was discontinued due to cardiac arrhythmia. He did receive one dose of tocilizumab. Patient is currently afebrile with no white count. Medically stable for transfer to ARU. 2. Pneumonia. Treated for bacterial coinfection. Did receive ceftriaxone on 08/19/2019. Completed 10 days of ceftriaxone and 7 days of azithromycin. Patient is continued on inhalers, supplemental oxygen. Patient was treated with BiPAP therapy due to ARDS secondary to COVID-19 infection. 3. Acute hypoxic respiratory failure secondary to COVID-19 viral infection with secondary bacterial infection. Treated with hydroxychloroquine but discontinued due to cardiac arrhythmia. One dose of tocilizumab and completed 10 days of ceftriaxone and 7 days of azithromycin. Patient had significant clinical improvement. Has remained afebrile but still maintaining saturations of 90-96% on 2 liters nasal cannula. 4. Acute respiratory distress syndrome secondary to COVID-19 with viral pneumonia and secondary bacterial infection. Initial imaging studies showed right lung infiltrate, which then developed into ARDS with bilateral infiltrates. FiO2 was around 100% at that time. Treated with BiPAP. Currently now on just 2 liters of oxygen. Patient was diuresed with Lasix and torsemide. He currently is stable and appears to be euvolemic. 5. Atrial fibrillation with rapid ventricular response. Most likely developed cardiac arrhythmia due to Eliquis. Initially on Lovenox. Currently transitioned to Eliquis twice a day. Patient is currently rate controlled. 6. Constipation. On Dulcolax as needed. 7. Gout. Continued on nonsteroidal anti-inflammatory drug (NSAID) with ibuprofen and colchicine twice a day. DISPOSITION: Patient is medically stable to transfer to ARU. Telemetry has been discontinued. MTDD
[2019-09-07] MEDS: BUDESONIDE 0.5 MG/2 ML INHALATION SUSPENSION INH SCH ×2 (08:47→19:17)
[2019-09-07] MEDS: FORMOTEROL FUMARATE 20 MCG/2 ML INHALATION SOLUTION (PERFOROMIST) INH SCH ×2 (08:47→19:17)
[2019-09-07] MEDS ORDERED: MOM 30ML SUSPENSION UDC PO PRN (10:00)
[2019-09-07] MEDS: MIRALAX *UNIT DOSE* 17GM PACKET PO SCH ×2 (10:44→22:04)
[2019-09-07] MEDS: SENOKOT S TAB PO SCH ×2 (10:44→22:06)
[2019-09-07] MEDS ORDERED: MOM 30ML SUSPENSION UDC PO ONE (11:00)
[2019-09-07 14:00] VITALS: BP 129/61
--- NOTE | 2019-09-07 14:21 | IPN ---
DATE: 09/07/2019 Patient's right big toe pain has slightly improved with colchicine. He currently still has generalized weakness, though cough is improved with decreased sputum production. Breathing is stable, but still difficult when he tries to get up and stand. Patient has not ambulated much. No cough, no fever or chills overnight. Awaiting rehab. Vital Signs: Temperature 97.3, pulse 77, respiratory rate 18, blood pressure 129/66, 96% on two liters nasal cannula. Generally, patient is awake, alert, oriented to himself. No respiratory distress, use of respiratory accessory muscles. No conversational dyspnea. No jugular venous distention (JVD) or thyromegaly. Lungs are diminished. Air entry is equal. Clear to auscultation. No wheezing or rales. Heart: S1, S2, sinus rhythm. Abdomen is soft, nontender, nondistended. Positive bowel sounds times four quadrants. Extremities: Patient has no cyanosis, clubbing or pitting edema. Skin: Has ecchymotic bruises on the bilateral upper extremities. LABORATORY DATA: White count pending. Microbiology: Two sets of blood cultures negative. Chest x-ray on 08/26/2019: Worsening air space disease bilaterally. ASSESSMENT AND PLAN: This is a 74-year-old male admitted on 08/17/2019 with complaints of worsening shortness of breath, dry cough for the past 4-5 days, primary care physician tested COVID-19, which was positive. Patient had a right lung infiltrate on chest x-ray, desaturated to 88% on room air, placed on three liters oxygen and was admitted for viral pneumonia with secondary bacterial infection. Patient was treated with azithromycin, hydroxychloroquine, worsened requiring noninvasive positive pressure ventilation with high-flow oxygen and completed a 10-day course of Rocephin and tocilizumab, which had been discontinued due to arrhythmia. Patient had decompensated congestive heart failure, was put on strict intake and output, daily weights, with diuresis, with net negative balance. His atrial fibrillation was anticoagulated, but he reverted back to sinus rhythm after a dose of amiodarone. CURRENT ISSUES ARE FOLLOWS: 1. COVID-19 infection with viral pneumonia and secondary bacterial infection. Patient completed 10 days of intravenous (IV) ceftriaxone. Azithromycin has been discontinued. Patient was given hydroxychloroquine, which was discontinued due to cardiac arrhythmia, and he did receive one dose of tocilizumab. Patient has been afebrile with no leukocytosis. 2. Acute respiratory distress syndrome (ARDS) due to COVID-19 and secondary bacterial co-infection. Patient had bilateral infiltrates on chest x-ray, required noninvasive positive pressure ventilation and has stabilized since, and has been transferred to medical-surgical floor. Lasix and torsemide were used to keep the patient dry due to fluid overload and congestive heart failure (CHF), diastolic dysfunction. 3. Atrial fibrillation with rapid ventricular response (RVR). Patient's Lovenox was transitioned to Eliquis. Patient's atrial fibrillation was thought to be secondary to a side effect of hydroxychloroquine, which has since been discontinued. He is currently on metoprolol. 4. Gout. On ibuprofen and colchicine. 5. Sepsis. Resolved. Secondary to pneumonia and COVID-19. Patient has stabilized and is medically stable for general floor. 6. Deconditioning secondary to sepsis with COVID-19, CHF, atrial fibrillation, and secondary bacterial pneumonia. Patient will need acute rehab unit (ARU). No transfer today. Has not been accepted to inpatient ARU at this time. LINDYD
[2019-09-07 22:00] VITALS: BP 121/59
[2019-09-07] MEDS: ASPIRIN 81 MG ENTERIC TAB PO SCH (22:05)
[2019-09-07] MEDS: RAMELTEON 8 MG TAB (ROZEREM) PO SCH (22:06)
[2019-09-07] MEDS: SIMVASTATIN 20 MG TAB PO SCH (22:06)
[2019-09-08 06:00] VITALS: BP 124/59
[2019-09-08] MEDS: BUDESONIDE 0.5 MG/2 ML INHALATION SUSPENSION INH SCH ×2 (07:30→19:10)
[2019-09-08] MEDS: SODIUM CHLORIDE HYPERTONIC 3% 15ML NEB SOL INH SCH ×3 (07:31→19:10)
[2019-09-08] MEDS: FORMOTEROL FUMARATE 20 MCG/2 ML INHALATION SOLUTION (PERFOROMIST) INH SCH ×2 (07:31→19:10)
[2019-09-08] MEDS: ALBUTEROL SULFATE 2.5 MG/0.5 ML INH NEB SOLN NEB SCH ×3 (07:31→19:10)
[2019-09-08] MEDS: SENOKOT S TAB PO SCH ×2 (09:20→22:45)
[2019-09-08] MEDS: COLCHICINE 0.6 MG TAB PO SCH (09:21)
[2019-09-08] MEDS: CALCIUM/VITAMIN D 500 MG TAB PO SCH (09:21)
[2019-09-08] MEDS: PANTOPRAZOLE 40MG TAB (PROTONIX) PO SCH ×2 (09:21→22:46)
[2019-09-08] MEDS: APIXABAN 5 MG TAB (ELIQUIS) PO SCH (09:21)
[2019-09-08] MEDS: MIRALAX *UNIT DOSE* 17GM PACKET PO SCH ×2 (09:24→22:46)
[2019-09-08 14:48] VITALS: BP 113/56
[2019-09-08] MEDS ORDERED: SUCR1TA PO (15:30)
[2019-09-08] MEDS ORDERED: PANT40TA3 PO (15:30)
[2019-09-08] MEDS: SUCRALFATE 1 GM TAB PO SCH ×2 (16:45→22:48)
[2019-09-08 20:54] LABS: HEMATOCRIT 35.9 % (42.0-52.0); HEMOGLOBIN 11.4 g/dl (13.5-17.5)
[2019-09-08 21:32] LABS: PERCENT SATURATION 26.2 % (19.7-50.0)
[2019-09-08] MEDS: RAMELTEON 8 MG TAB (ROZEREM) PO SCH (22:44)
[2019-09-08] MEDS: ASPIRIN 81 MG ENTERIC TAB PO SCH (22:45)
[2019-09-08] MEDS: SIMVASTATIN 20 MG TAB PO SCH (22:46)
[2019-09-08 22:54] VITALS: BP 120/57
[2019-09-09 06:15] VITALS: BP 133/64
[2019-09-09 07:18] LABS: HEMATOCRIT 34.5 % (42.0-52.0); HEMOGLOBIN 11.1 g/dl (13.5-17.5); MEAN CORPUSCULAR HEMOGLOBIN 31.2 pg (27.0-33.0); MEAN CORPUSCULAR HGB CONC 32.2 g/dl (32.0-36.5); MEAN CORPUSCULAR VOLUME 96.9 fl (80.0-96.0); PLATELET COUNT, AUTOMATED 147 10^3/uL (150-450); RED BLOOD COUNT 3.56 10^6/uL (4.30-6.10); WHITE BLOOD COUNT 4.6 10^3/uL (4.0-10.0)
[2019-09-09 07:41] LABS: BLOOD UREA NITROGEN 15 MG/DL (7-18); CALCIUM LEVEL 8.3 MG/DL (8.8-10.2); CARBON DIOXIDE LEVEL 27 MEQ/L (21-32); CHLORIDE LEVEL 107 MEQ/L (98-107); CREATININE FOR GFR 0.76 MG/DL (0.70-1.30); GLOMERULAR FILTRATION RATE > 60.0 (>42); GLUCOSE, FASTING 101 MG/DL (70-100); POTASSIUM SERUM 4.1 MEQ/L (3.5-5.1); SODIUM LEVEL 139 MEQ/L (136-145)
[2019-09-09] MEDS: ALBUTEROL SULFATE 2.5 MG/0.5 ML INH NEB SOLN NEB SCH (08:00)
[2019-09-09] MEDS: BUDESONIDE 0.5 MG/2 ML INHALATION SUSPENSION INH SCH (08:05)
[2019-09-09] MEDS: FORMOTEROL FUMARATE 20 MCG/2 ML INHALATION SOLUTION (PERFOROMIST) INH SCH (08:05)
[2019-09-09] MEDS: SODIUM CHLORIDE HYPERTONIC 3% 15ML NEB SOL INH SCH (08:05)
[2019-09-09 08:08] VITALS: O2SAT 87
[2019-09-09 08:10] VITALS: O2SAT 90
[2019-09-09] MEDS: SUCRALFATE 1 GM TAB PO SCH ×2 (09:33→11:30)
[2019-09-09] MEDS: CALCIUM/VITAMIN D 500 MG TAB PO SCH (09:33)
[2019-09-09] MEDS: MIRALAX *UNIT DOSE* 17GM PACKET PO SCH (09:33)
[2019-09-09] MEDS: SENOKOT S TAB PO SCH (09:33)
[2019-09-09] MEDS: PANTOPRAZOLE 40MG TAB (PROTONIX) PO SCH (09:33)
--- NOTE | 2019-09-09 13:48 | IPN ---
DATE OF SERVICE: 09/08/2019 This morning, the patient complains of bright red blood per rectum after moving his bowels. He also complained of black tarry stool this morning. History of colonic polyps in the past, previously scoped by Dr. Oshea. He still complains of some dyspnea on exertion. No chest pain, palpitations, lightheadedness or near syncopal feeling today. No abdominal pain, nausea or vomiting. Currently on Protonix 40 mg daily and had been taking ibuprofen along with Eliquis for atrial fibrillation with rapid ventricular response (RVR). Vital Signs: Temperature 96.4, pulse 95, respiratory rate 18, blood pressure 124/59, 92% on two liters nasal cannula. Generally, patient is awake, alert, oriented times three, answering questions appropriately. Anicteric. No jaundice. No use of respiratory accessory muscles. No pallor or icterus. No jugular venous distention (JVD). No thyromegaly. Lungs are diminished with fine crackles at the bases. Heart: S1, S2, sinus rhythm. Abdomen is obese, soft, nontender, nondistended. Extremities: No cyanosis or clubbing. LABORATORY DATA: White count 4.5, hemoglobin 12, hematocrit 37, platelet count 166. Sodium 141, potassium 3.8, chloride 103, bicarbonate 31, BUN 18, creatinine 0.79, glucose 118. ASSESSMENT AND PLAN: This is a 74-year-old male admitted on 08/17/2019 with worsening shortness of breath, dry cough for 4-5 days, positive for COVID-19. Chest x-ray showed right lung infiltrate and hypoxic respiratory failure with saturation of 88% on room air. The patient was initially admitted for viral pneumonia as well as a secondary bacterial infection and was treated with azithromycin and hydroxychloroquine, but worsened clinically and was transferred to the intensive care unit (ICU) for noninvasive positive pressure ventilation with high flow oxygen. He subsequently completed a ten day course of Rocephin and was given Tocilizumab, which was then discontinued due to an arrhythmia. The patient also developed heart failure for which he was diuresed and was kept on net negative balance. During his hospital stay, he had an episode of new onset atrial fibrillation, but reverted back to sinus with discontinuation of the hydroxychloroquine as well as a dose of amiodarone. He is currently back in sinus rhythm and was kept anticoagulated until today when he developed black tarry stools as well as bright red blood with a bowel movement. IMPRESSION: 1. Acute blood loss in the setting of Eliquis and NSAID for his gout with ibuprofen and continued Colchicine use. The patient's anticoagulation has been held. Advil has been discontinued. He is currently on Protonix 40 mg twice a day, Carafate 1 gram before meals and at bedtime. Check for Hemoccult stool, iron studies with next blood draw. No acute indication for RBC transfusion. He is currently asymptomatic from this. He denied any lightheadedness, dizziness or near syncopal episode. 2. COVID-19 infection with viral pneumonia and secondary bacterial infection complicated by acute respiratory distress syndrome requiring noninvasive positive pressure ventilation. The patient has completed 10 days of intravenous (IV) ceftriaxone and azithromycin. He did receive hydroxychloroquine and one dose of Tocilizumab. The patient's hydroxychloroquine was discontinued due to new onset atrial fibrillation that was treated with IV amiodarone and currently sinus rhythm. The patient is currently medically stable, but still requiring supplemental oxygen, which he may need for home. 3. Acute respiratory distress failure due to viral pneumonia with secondary bacterial infection and COVID-19. The patient will be requiring supplemental oxygen at home. Respiratory therapist will be alerted. 4. Atrial fibrillation with rapid ventricular response (RVR). Currently sinus rhythm. Status post amiodarone. May have been related to administration of hydroxychloroquine. The patient was on Lovenox, but transitioned to Eliquis, but now developed acute GI bleed with black tarry stool and bright red blood per rectum. Anticoagulation has been discontinued temporarily for now. He has been placed on Protonix and Carafate. He is rate controlled and sinus rhythm currently. Eliquis has been discontinued until anemia has been stabilized. 5. Gout. Ibuprofen and colchicine have been discontinued due to bright red blood per rectum and black tarry stool at this time. If persistent complaint of gout, may need short course of prednisone. DISPOSITION: Awaiting physical therapy clearance and evaluation of patient's bright red blood per rectum. One to two more days. MTDD
--- NOTE | 2019-09-10 22:25 | IPN ---
DATE: 09/09/2019 Patient desaturates to 87% on room air with ambulation. With oxygen patient increases up to about 90% to 92% on 2 liters nasal cannula. His cough is decreased, currently dry, previous thick. No fevers or chills overnight. Patient has had no repeat bright red blood per rectum or melanotic stools. No dizziness, lightheadedness. Patient is anxious to go home and has been "doing what I can to keep stronger." Patient has been walking around the room with his walker. He has no dizziness or lightheadedness. No nausea or vomiting. Tolerating his diet. Has not had a bowel movement today. Hemoglobin and hematocrit remain stable after stopping the Eliquis for history of atrial fibrillation caused by hydroxychloroquine. Currently with hemoglobin of 11, unchanged from yesterday of 11.4. VITAL SIGNS: Temperature 97.5, pulse 79, respiratory rate 18, blood pressure 133/64, 92% on 2 liters nasal cannula, 87% on room air. GENERAL: Patient is awake, alert, oriented times three. Speaks in full sentences with no conversational dyspnea, no jugular venous distention (JVD), no thyromegaly. LUNGS: Clear to auscultation with diminished breath sounds. Otherwise, no wheezing or rales. HEART: S1, S2, sinus rhythm. ABDOMEN: Obese, soft, nontender, nondistended. EXTREMITIES: No cyanosis or clubbing. LABORATORY DATA: White count 4.6, hemoglobin 11, hematocrit 34, platelet count 147, previously platelet count of 166. Sodium 139, potassium 4, chloride 107, bicarbonate 27, BUN 15, creatinine 0.76, glucose 101. IMAGING STUDY: Chest x-ray 08/26/2019: Worsening airspace disease bilaterally. ASSESSMENT AND PLAN: This is a 74-year-old male who presented and admitted on 08/17/2019 with complaints of 4-5 day history of worsening shortness of breath and a dry cough. Was found to be COVID positive and was admitted. Chest x-ray showed right lung infiltrate. Patient was found to be hypoxic. Was desaturating to 88% on room air. Initially placed on 3 liters of oxygen. Admitted for viral pneumonia with possible secondary bacterial infection, treated with azithromycin and hydroxychloroquine. Patient worsened clinically and required noninvasive positive pressure ventilation with high-flow oxygen. Transferred to intensive care unit (ICU) for management and received 10 days of Rocephin, talizumab , and hydroxychloroquine. Patient developed atrial fibrillation, and hydroxychloroquine has been discontinued. He also suffered from decompensated congestive heart failure, for which he was diuresed and was kept at net-negative balance. His atrial fibrillation was rate controlled and reverted back to sinus rhythm after amiodarone. He was then anticoagulated with Eliquis. Patient's subsequently improved and was transferred to medical/surgical floor, where he developed bright red blood per rectum. Eliquis was discontinued. He remained without any repeat gastrointestinal (GI) bleed with a stable hemoglobin off of the Eliquis. Patient says that he usually does have hemorrhoids at home and had been previously scoped by Dr. Oshea and found to have colonic polyps. He had sinus rhythm as soon as the amiodarone and Eliquis had been discontinued. PHYSICAL EXAMINATION: Temperature 97.5, pulse 79, respiratory rate 18, blood pressure 133/64, 92% on 2 liters nasal cannula. GENERAL: Patient is awake, alert, oriented to person, place, and time, answering questions appropriately. He has no conversational dyspnea. Able to speak in full sentences. LUNGS: Clear to auscultation. No wheezing or rales. HEART: S1, S2, sinus rhythm. ABDOMEN: Obese, soft, nontender, nondistended. Positive bowel sounds. EXTREMITIES: No cyanosis or clubbing. LABORATORY DATA: White count 4.6, hemoglobin 11, hematocrit 34, platelet count 147, previous platelet count 166. Sodium 139, potassium 4, chloride 107, bicarbonate 27, BUN 15, creatinine 0.76, glucose 101. IMPRESSION: 1. Acute hypoxic respiratory failure secondary to COVID-19 positive with superimposed bacterial pneumonia, complicated by decompensated heart failure and worsening hypoxemic respiratory failure secondary to acute respiratory distress syndrome. Patient had required noninvasive positive pressure ventilation in the ICU. Had been weaned off to nasal cannula but still with acute hypoxia requiring supplemental oxygen. Found to be 87% on room air currently. Patient has completed treatment for his pneumonia and was given hydroxychloroquine, azithromycin, talizumab with improvement in his inflammatory markers and has been stable since his ICU discharge. He is currently stable on supplemental oxygen and awaiting physical therapy clearance. 2. Congestive heart failure. Patient has been diuresed. Appears to be much more stable. 3. Hypertension. Stable on home medication, which has been resumed. 4. Acute hypoxic failure secondary to COVID-19, decompensated heart failure, and bacterial pneumonia, improved but requiring supplemental oxygen on hospital discharge. 5. Atrial fibrillation with rapid ventricular rate secondary to hydroxychloroquine, which has been discontinued. Patient had developed acute gastrointestinal (GI) bleed, and Eliquis has been held. Patient is currently rate controlled. 6. Acute GI bleed. Stable hemoglobin with no recurrent episode. Patient has been taken off the Eliquis. Currently on Carafate and Protonix. 7. History of colonic polyps. Patient will followup with Dr. Oshea. He is currently just on aspirin. Eliquis has been discontinued. 8. Patient's atrial fibrillation was thought to be secondary to hydroxychloroquine, for which it was discontinued, and he has been sinus rhythm since he had been given amiodarone and hydroxychloroquine has been discontinued. DISPOSITION: Awaiting PT clearance prior to discharge home. MTDD
--- NOTE | 2019-09-18 18:40 | DSES ---
DATE OF ADMISSION: 08/17/2019 DATE OF DISCHARGE: 09/09/2019 CONSULTANTS: Piping Supervisor, Dr. Daniela Muir, Dr. Adrián Villareal. PRIMARY DISCHARGE DIAGNOSES: 1. Coronavirus viral infection. 2. Acute respiratory distress syndrome (ARDS), requiring bilevel positive airway pressure. 3. Secondary bacterial pneumonia. 4. Hydroxychloroquine-induced atrial fibrillation. 5. Decompensated congestive heart failure, diastolic function with preserved ejection fraction. 6. Acute gastrointestinal (GI) bleed, not requiring red blood cell (RBC) transfusion, most likely secondary to hemorrhoidal bleeding in the setting of anticoagulation with Eliquis. 7. History of colonic polyps. 8. Paroxysmal atrial fibrillation secondary to hydroxychloroquine. 9. Hypertension. 10. Acute hypoxic respiratory failure secondary to COVID-19 viral infection with decompensated heart failure and bacterial pneumonia, requiring two liters of home oxygen at hospital discharge. DISCHARGE MEDICATIONS: - Protonix 40 mg twice a day - Carafate 1 gram before meals and at bedtime - albuterol two puffs every four to six hours - Symbicort two puffs inhaled twice a day - simvastatin 10 mg at bedtime FOLLOWUP: With Dr. Oshea as outpatient, primary care physician within one week of hospital discharge. Return to primary care physician or the emergency room (ER) if recurrent gastrointestinal (GI) bleed. HOSPITAL COURSE: This is a 74-year-old male who presented and admitted on 08/17/2019 with complaints of 4-5 day history of worsening shortness of breath and dry cough. He was found to be COVID-19 positive and was admitted. Chest x-ray showed right lung infiltrate. He was hypoxic saturating 88% on room air, initially placed on three liters of oxygen, treated with azithromycin and hydroxychloroquine. The patient worsened clinically and became much more hypoxic requiring noninvasive positive pressure ventilation, high flow oxygen, transferred to intensive care unit (ICU), and received 10 days of IV Rocephin. He was tried on hydroxychloroquine and talizumab. The patient developed paroxysmal atrial fibrillation while on hydroxychloroquine which was subsequently discontinued. At that time, he then had decompensated acute congestive heart failure (CHF) with preserved systolic function, diastolic failure. His atrial fibrillation reverted back to sinus rhythm after one dose of amiodarone and he was anticoagulated with Eliquis. The patient was kept on noninvasive positive pressure ventilation and has been weaned off to high flow nasal cannula oxygen. He completed antibiotic treatment for his pneumonia with 10 days of IV ceftriaxone, azithromycin, treated for COVID-19 pneumonia with hydroxychloroquine which caused atrial fibrillation and was subsequently discontinued. Talizumab was given with improvement in his inflammatory markers. The patient continued to have dyspnea on exertion requiring supplemental oxygen of two liters at hospital discharge. The patient did have a component of fibrosis secondary to his acute respiratory distress syndrome (ARDS) as well as some atelectasis contributing to his hypoxemia. The patient was kept on albuterol nebulizers and Acapella device to improve pulmonary toilet and was kept on continuous positive airway pressure (CPAP) for his history of sleep apnea. He was restarted on his home settings. The patient's torsemide was changed due to acute kidney injury with slight increase in creatinine which improved subsequently. Das catheter was subsequently then discontinued on hospital discharge. The patient did have one episode of bright red blood per rectum while on Eliquis. He remained in sinus rhythm after hydroxychloroquine and one dose of amiodarone. The patient had stable hemoglobin at 11.1 and hematocrit of 34.5 with a subsequent decrease. His Eliquis was subsequently then discontinued due to the fact that his atrial fibrillation was thought to be secondary to hydroxychloroquine and he had remained in sinus rhythm. PHYSICAL EXAMINATION ON HOSPITAL DISCHARGE: Temperature 97.5, pulse 79, respiratory rate 18, blood pressure 133/64, 92% on two liters nasal cannula, 87% on room air. Generally, awake, alert and oriented times three, answering questions appropriately. No conversational dyspnea. No jugular venous distention (JVD). No thyromegaly. Lungs: Clear to auscultation. Diminished breath sounds. No wheezing or rales. Heart: S1, S2, sinus rhythm. No murmurs, rubs, or gallops. Abdomen is soft, nontender, nondistended. Positive bowel sounds times four quadrants. No hepatosplenomegaly. No abdominal bruit. Extremities: No cyanosis or clubbing. LABORATORY DATA ON DISCHARGE: White count 4.6, hemoglobin 11, hematocrit 34.5, platelet count 147, previous platelet count 166. Sodium 139, potassium 4.1, chloride 107, bicarbonate 27, BUN 15, creatinine 0.76, glucose of 101. Two sets of blood cultures negative after five days. Chest x-ray 08/26/2019: Worsening airspace disease bilaterally. TIME SPENT ON DISCHARGE: 30 minutes.
== END 2019-09-09 15:30 | disposition home health service (06) | DRG 871 ==
LOC: M ED 17:35 → EDBD 17:35 → M ED INP 18:45 → ENRESERVTM 19:35 → ENRESERVDT 19:35 → M ICU 20:50 → M 4MAIN 09-06 12:40
PROVIDERS: ADMIT Internal Medicine; ATTEND General Practice
DX: A41.89 Other specified sepsis (principal); J12.89 Other viral pneumonia; U07.1 COVID-19; J96.01 Acute respiratory failure with hypoxia; J15.9 Unspecified bacterial pneumonia; I50.31 Acute diastolic (congestive) heart failure; J44.0 Chronic obstructive pulmonary disease with (acute) lower respiratory infection; D68.4 Acquired coagulation factor deficiency; N17.9 Acute kidney failure, unspecified; D62 Acute posthemorrhagic anemia; I48.0 Paroxysmal atrial fibrillation; T37.8X5A Adverse effect of other specified systemic anti-infectives and antiparasitics, initial encounter; I11.0 Hypertensive heart disease with heart failure; K64.8 Other hemorrhoids; Z79.899 Other long term (current) drug therapy; J84.10 Pulmonary fibrosis, unspecified; E78.5 Hyperlipidemia, unspecified; Z79.82 Long term (current) use of aspirin; G47.33 Obstructive sleep apnea (adult) (pediatric); Z87.891 Personal history of nicotine dependence; E11.9 Type 2 diabetes mellitus without complications; M10.9 Gout, unspecified; K59.00 Constipation, unspecified

== ENCOUNTER → 2019-10-04 | Outpatient (CLI) | payer MEDICARE ==
[~2019-10-04] MED LIST changes: +PANT40TA3 PO; +PROAAER10 INH; +SUCR1TA PO
--- NOTE | 2019-10-04 09:56 | REPPI ---
REASON: Followup. COMPARISON: 08/26/2019 The airspace opacities seen on the prior portable examination have markedly improved. Scattered opacities persist. The pleural angles are sharp. The cardiomediastinal silhouette is within normal limits. The osseous structures are stable and intact. IMPRESSION: Marked lung field improvement but with persistent opacities. Continued followup is suggested. Electronically Signed by Patrick Hancock DO 10/04/2019 11:05 A
== END ==
LOC: M PLAIMG 08:53
PROVIDERS: ATTEND Internal Medicine Pulmonary Disease
DX: U07.1 COVID-19 (principal); J12.89 Other viral pneumonia

== ENCOUNTER → 2021-02-16 | Outpatient (REF) | payer MEDICARE ==
[~2021-02-16] MED LIST changes: -ASPI81TA85 PO; +ASPI81TA86 PO; +PANT40TA29 PO; -PANT40TA3 PO
[2021-02-16 12:53] LABS: HEMOGLOBIN 14.4 g/dl (13.5-17.5); MEAN CORPUSCULAR HEMOGLOBIN 32.3 pg (27.0-33.0); MEAN CORPUSCULAR HGB CONC 32.7 g/dl (32.0-36.5); MEAN CORPUSCULAR VOLUME 98.7 fl (80.0-96.0); PLATELET COUNT, AUTOMATED 135 10^3/uL (150-450); RED BLOOD COUNT 4.46 10^6/uL (4.30-6.10); WHITE BLOOD COUNT 5.5 10^3/uL (4.0-10.0)
[2021-02-16 14:06] LABS: ALBUMIN 3.4 GM/DL (3.2-5.2); ALT/SGPT 14 U/L (12-78); BILIRUBIN,TOTAL 0.8 MG/DL (0.2-1.0); BLOOD UREA NITROGEN 16 MG/DL (7-18); CALCIUM LEVEL 8.5 MG/DL (8.8-10.2); CARBON DIOXIDE LEVEL 30 MEQ/L (21-32); CHLORIDE LEVEL 106 MEQ/L (98-107); CHOLESTEROL LEVEL 152 MG/DL (<200); CHOLESTEROL RISK RATIO 2.923 (<5); CREATININE FOR GFR 1.07 MG/DL (0.70-1.30); GLOMERULAR FILTRATION RATE > 60.0 (>42); GLUCOSE, FASTING 86 MG/DL (70-100); HDL CHOLESTEROL 52 MG/DL (>40); LDL CHOLESTEROL 82 MG/DL (<100); NON-HDL-C 100 MG/DL; POTASSIUM SERUM 4.2 MEQ/L (3.5-5.1); SODIUM LEVEL 142 MEQ/L (136-145); TOTAL 25(OH) VITAMIN D 38.4 NG/ML (30.0-100.0); TOTAL PROTEIN 6.5 GM/DL (6.4-8.2); TRIGLYCERIDES LEVEL 91 MG/DL (<150)
== END ==
LOC: M LABDRWAD 12:19
PROVIDERS: ATTEND Family Medicine
DX: E55.9 Vitamin D deficiency, unspecified (principal); E78.5 Hyperlipidemia, unspecified; Z79.899 Other long term (current) drug therapy

== ENCOUNTER → 2021-03-23 | Outpatient (REF) | payer MEDICARE ==
[2021-03-23 12:27] LABS: BASO % 0.7 % (0.0-1.0); EOS # 0.2 10^3/uL (0.0-0.5); EOS % 3.9 % (0.0-3.0); HEMATOCRIT 45.7 % (42.0-52.0); HEMOGLOBIN 14.9 g/dl (13.5-17.5); LYMPH # 1.5 10^3/uL (1.5-5.0); LYMPH % 26.9 % (24.0-44.0); MEAN CORPUSCULAR HEMOGLOBIN 31.8 pg (27.0-33.0); MEAN CORPUSCULAR HGB CONC 32.6 g/dl (32.0-36.5); MEAN CORPUSCULAR VOLUME 97.6 fl (80.0-96.0); MONO # 0.5 10^3/uL (0.0-0.8); MONO % 9.1 % (2.0-8.0); NEUTROPHILS # 3.3 10^3/uL (1.5-8.5); NEUTROPHILS % 58.7 % (36.0-66.0); PLATELET COUNT, AUTOMATED 166 10^3/uL (150-450); RED BLOOD COUNT 4.68 10^6/uL (4.30-6.10); WHITE BLOOD COUNT 5.6 10^3/uL (4.0-10.0)
== END ==
LOC: M LABDRWAD 12:05
PROVIDERS: ATTEND Family Medicine
DX: Z00.00 Encounter for general adult medical examination without abnormal findings (principal)

== ENCOUNTER → 2023-01-03 | Outpatient (REF) | payer MEDICARE ==
[2023-01-03 15:27] LABS: BASO # 0.1 10^3/uL (0.0-0.2); BASO % 0.8 % (0.0-1.0); EOS # 0.3 10^3/uL (0.0-0.5); EOS % 4.5 % (0.0-3.0); HEMATOCRIT 43.7 % (42.0-52.0); LYMPH # 1.3 10^3/uL (1.5-5.0); LYMPH % 19.6 % (24.0-44.0); MEAN CORPUSCULAR HEMOGLOBIN 32.1 pg (27.0-33.0); MEAN CORPUSCULAR VOLUME 100.2 fl (80.0-96.0); MONO # 0.6 10^3/uL (0.0-0.8); MONO % 8.9 % (2.0-8.0); NEUTROPHILS # 4.2 10^3/uL (1.5-8.5); NEUTROPHILS % 65.9 % (36.0-66.0); PLATELET COUNT, AUTOMATED 159 10^3/uL (150-450); RED BLOOD COUNT 4.36 10^6/uL (4.30-6.10); WHITE BLOOD COUNT 6.4 10^3/uL (4.0-10.0)
[2023-01-03 16:03] LABS: ALBUMIN 3.9 G/DL (3.2-5.2); ALKALINE PHOSPHATASE 97 U/L (46-116); ALT/SGPT 10 U/L (7.0-40); AST/SGOT 15 U/L (<34); BILIRUBIN,TOTAL 0.8 MG/DL (0.3-1.2); BLOOD UREA NITROGEN 31 MG/DL (9-23); CALCIUM LEVEL 9.2 MG/DL (8.3-10.6); CARBON DIOXIDE LEVEL 28 MMOL/L (20-31); CHLORIDE LEVEL 107 MMOL/L (98-107); CHOLESTEROL LEVEL 148 MG/DL (<200); CREATININE FOR GFR 1.13 MG/DL (0.70-1.30); GLOMERULAR FILTRATION RATE > 60.0 (>42); GLUCOSE, FASTING 90 MG/DL (74-106); HDL CHOLESTEROL 61.6 MG/DL (>40); LDL CHOLESTEROL 65.4 MG/DL (<100); NON-HDL-C 86.4 MG/DL; POTASSIUM SERUM 4.3 MMOL/L (3.5-5.1); SODIUM LEVEL 143 MMOL/L (136-145); TOTAL PROTEIN 6.6 G/DL (5.7-8.2); TRIGLYCERIDES LEVEL 105 MG/DL (<150)
[2023-01-03 16:06] LABS: TOTAL 25(OH) VITAMIN D 26.6 NG/ML (20.0-100.0)
== END ==
LOC: M LABDRWAD 12:21
PROVIDERS: ATTEND Family Medicine
DX: E55.9 Vitamin D deficiency, unspecified (principal); E78.5 Hyperlipidemia, unspecified; Z79.899 Other long term (current) drug therapy

== ENCOUNTER → 2023-08-29 | Outpatient (REF) | payer MEDICARE, OTHER ==
[2023-08-29 13:08] LABS: APPEARANCE, URINE CLEAR (CLEAR); BACTERIA, URINE AUTO NEGATIVE (NEGATIVE); BILIRUBIN, URINE AUTO NEGATIVE (NEGATIVE); BLOOD, URINE BLOOD 2+ (NEGATIVE); COLOR, URINE YELLOW (YELLOW); GLUCOSE, URINE (UA) AUTO 2+ mg/dL (NEGATIVE); KETONE, URINE AUTO NEGATIVE (NEGATIVE); LEUKOCYTE ESTERASE, URINE AUTO NEGATIVE (NEGATIVE); MUCUS, URINE SMALL (NEGATIVE); NITRITE, URINE AUTO NEGATIVE (NEGATIVE); PROTEIN, URINE AUTO NEGATIVE (NEGATIVE); RBC, URINE AUTO 0 /HPF (0-3); SQUAMOUS EPITHELIAL CELL UR AU 0 /HPF (0-6); UROBILINOGEN, URINE AUTO 0.2 mg/dL (0.0-2.0); WBC, URINE AUTO 10 /HPF (0-3)
== END ==
LOC: M SMT 12:05
PROVIDERS: ATTEND Nurse Practitioner Family
DX: R31.29 Other microscopic hematuria (principal)

== ENCOUNTER 2023-10-26 06:07 | Day surgery (SDC) | payer OTHER, MEDICARE ==
[~2023-10-26] VITALS: Ht 170.2 cm; Wt 82.5 kg
[~2023-10-26 06:07] MED LIST changes: +AZEL205.5 NS; +ESOM1CAP20 PO; -ESOM1CAP5 PO; +FLON1SPR; +FLUT1BLS2 IH; +MELO15TA28 PO; +[UNRECOGNIZED DRUG - CODE] PO
[2023-10-26] MEDS ORDERED: propofoL 200 MG/20 ML VIAL As Ordered ONE (07:00)
[2023-10-26] MEDS ORDERED: LIDOCAINE 2% 100MG/5ML SDV (FOR ANES.) As Ordered ONE (07:00)
[2023-10-26] MEDS ORDERED: ONDANSETRON 4MG 2ML VIAL As Ordered ONE (07:00)
[2023-10-26] MEDS ORDERED: fentaNYL 100 MCG/2 ML INJECTION As Ordered ONE (07:03)
[2023-10-26] MEDS: LR 1,000 ML IV SCH (07:23)
[2023-10-26] MEDS: ceFAZolin SOD 2 GM in IV 1 EA IV ONE (07:35)
[2023-10-26] MEDS ORDERED: ACETAMINOPHEN 1000MG 100ML IV BAG As Ordered ONE (07:36)
[2023-10-26] MEDS: LIDOCAINE 1% SDV 30ML VIAL As Ordered ONE (07:57)
[2023-10-26] MEDS ORDERED: HYDROMORPHONE HCL 0.5 MG/ 0.5 ML SYRINGE IV PRN (08:00)
[2023-10-26] MEDS ORDERED: LR 1,000 ML IV SCH (08:00)
[2023-10-26] MEDS ORDERED: ONDANSETRON 4MG 2ML VIAL IV PRN (08:00)
[2023-10-26] MEDS ORDERED: fentaNYL 100 MCG/2 ML INJECTION IV PRN (08:00)
[2023-10-26] MEDS ORDERED: CEPH500C PO (08:15)
[2023-10-26] MEDS ORDERED: HYDR-3713 PO (08:15)
[2023-10-26] MEDS: oxyCODONE 5MG TAB PO PRN (08:37)
[2023-10-26 10:00] VITALS: BP 144/67; TEMP 97.8; O2SAT 95
== END 2023-10-26 10:11 | disposition home or self-care (01) ==
LOC: M SDC 06:07
PROVIDERS: ATTEND Urology
DX: N48.1 Balanitis (principal); N47.1 Phimosis; E78.00 Pure hypercholesterolemia, unspecified; I71.40 Abdominal aortic aneurysm, without rupture, unspecified; G47.30 Sleep apnea, unspecified; J44.9 Chronic obstructive pulmonary disease, unspecified; Z79.899 Other long term (current) drug therapy; Z95.5 Presence of coronary angioplasty implant and graft; Z79.1 Long term (current) use of non-steroidal anti-inflammatories (NSAID); Z90.49 Acquired absence of other specified parts of digestive tract
CPT/HCPCS: 54161; 88304; J0131; J0690; J1100; J2405; J3010

== ENCOUNTER → 2024-01-16 | Outpatient (REF) | payer MEDICARE, OTHER ==
[~2024-01-16] MED LIST changes: +CEPH500C PO; +HYDR-3713 PO
[2024-01-16 18:08] LABS: APPEARANCE, URINE HAZY (CLEAR); BACTERIA, URINE AUTO NEGATIVE (NEGATIVE); BILIRUBIN, URINE AUTO NEGATIVE (NEGATIVE); BLOOD, URINE BLOOD NEGATIVE (NEGATIVE); COLOR, URINE AMBER (YELLOW); GLUCOSE, URINE (UA) AUTO NEGATIVE (NEGATIVE); KETONE, URINE AUTO TRACE mg/dL (NEGATIVE); LEUKOCYTE ESTERASE, URINE AUTO 1+ (NEGATIVE); MUCUS, URINE SMALL (NEGATIVE); NITRITE, URINE AUTO NEGATIVE (NEGATIVE); PROTEIN, URINE AUTO NEGATIVE (NEGATIVE); RBC, URINE AUTO 0 /HPF (0-3); SPECIFIC GRAVITY URINE AUTO 1.029 (1.002-1.035); SQUAMOUS EPITHELIAL CELL UR AU 1 /HPF (0-6); WBC, URINE AUTO 30 /HPF (0-3)
== END ==
LOC: M SMT 16:54
PROVIDERS: ATTEND Physician Assistant
DX: R31.29 Other microscopic hematuria (principal)
CPT/HCPCS: 81001; 88108; G0463

== ENCOUNTER → 2024-01-23 | Outpatient (REF) | payer OTHER, MEDICARE ==
[2024-01-23 14:17] LABS: BASO % 0.5 % (0.0-1.0); EOS # 0.3 10^3/uL (0.0-0.5); EOS % 4.8 % (0.0-3.0); HEMATOCRIT 39.8 % (42.0-52.0); HEMOGLOBIN 12.7 g/dl (13.5-17.5); LYMPH # 1.4 10^3/uL (1.5-5.0); LYMPH % 21.6 % (24.0-44.0); MEAN CORPUSCULAR HEMOGLOBIN 32.1 pg (27.0-33.0); MEAN CORPUSCULAR HGB CONC 31.9 g/dl (32.0-36.5); MEAN CORPUSCULAR VOLUME 100.5 fl (80.0-96.0); MONO # 0.6 10^3/uL (0.0-0.8); MONO % 8.4 % (2.0-8.0); NEUTROPHILS # 4.3 10^3/uL (1.5-8.5); NEUTROPHILS % 64.1 % (36.0-66.0); PLATELET COUNT, AUTOMATED 140 10^3/uL (150-450); RED BLOOD COUNT 3.96 10^6/uL (4.30-6.10); WHITE BLOOD COUNT 6.7 10^3/uL (4.0-10.0)
[2024-01-23 14:24] LABS: ALBUMIN 3.9 G/DL (3.2-5.2); ALKALINE PHOSPHATASE 110 U/L (46-116); ALT/SGPT 13 U/L (7.0-40); AST/SGOT 19 U/L (<34); BILIRUBIN,TOTAL 0.6 MG/DL (0.3-1.2); BLOOD UREA NITROGEN 17 MG/DL (9-23); CALCIUM LEVEL 9.5 MG/DL (8.3-10.6); CARBON DIOXIDE LEVEL 31 MMOL/L (20-31); CHLORIDE LEVEL 108 MMOL/L (98-107); CHOLESTEROL LEVEL 158 MG/DL (<200); CHOLESTEROL RISK RATIO 2.59 (<5); CREATININE FOR GFR 1.12 MG/DL (0.70-1.30); GLOMERULAR FILTRATION RATE > 60.0 (>42); GLUCOSE, FASTING 93 MG/DL (74-106); HDL CHOLESTEROL 60.9 MG/DL (>40); LDL CHOLESTEROL 82.3 MG/DL (<100); NON-HDL-C 97.1 MG/DL; POTASSIUM SERUM 4.5 MMOL/L (3.5-5.1); SODIUM LEVEL 143 MMOL/L (136-145); TOTAL PROTEIN 6.7 G/DL (5.7-8.2); TRIGLYCERIDES LEVEL 74 MG/DL (<150)
[2024-01-23 14:26] LABS: TOTAL 25(OH) VITAMIN D 34.4 NG/ML (20.0-100.0)
== END ==
LOC: M LABDRWAD 13:28
PROVIDERS: ATTEND Family Medicine
DX: E55.9 Vitamin D deficiency, unspecified (principal); E78.5 Hyperlipidemia, unspecified

== ENCOUNTER → 2024-01-31 | Outpatient (CLI) | payer MEDICARE, OTHER | LOC: M RAD 08:56 | PROVIDERS: ATTEND Nurse Practitioner Family | DX: I71.40 Abdominal aortic aneurysm, without rupture, unspecified (principal) ==

== ENCOUNTER → 2024-06-21 | Outpatient (REF) | payer OTHER, MEDICARE ==
[2024-06-21 14:31] LABS: BASO % 0.7 % (0.0-1.0); EOS # 0.2 10^3/uL (0.0-0.5); EOS % 4.1 % (0.0-3.0); HEMATOCRIT 42.9 % (42.0-52.0); HEMOGLOBIN 13.5 g/dl (13.5-17.5); LYMPH # 1.6 10^3/uL (1.5-5.0); LYMPH % 27.8 % (24.0-44.0); MEAN CORPUSCULAR HGB CONC 31.5 g/dl (32.0-36.5); MEAN CORPUSCULAR VOLUME 101.7 fl (80.0-96.0); MONO # 0.6 10^3/uL (0.0-0.8); MONO % 9.7 % (2.0-8.0); NEUTROPHILS # 3.3 10^3/uL (1.5-8.5); NEUTROPHILS % 57.2 % (36.0-66.0); PLATELET COUNT, AUTOMATED 146 10^3/uL (150-450); RED BLOOD COUNT 4.22 10^6/uL (4.30-6.10); WHITE BLOOD COUNT 5.8 10^3/uL (4.0-10.0)
[2024-06-21 14:38] LABS: ALBUMIN 3.8 G/DL (3.2-5.2); ALKALINE PHOSPHATASE 119 U/L (40-129); ALT/SGPT 10 U/L (7.0-40); AST/SGOT 20 U/L (<34); BILIRUBIN,TOTAL 0.7 MG/DL (0.3-1.2); BLOOD UREA NITROGEN 20 MG/DL (9-23); CALCIUM LEVEL 9.1 MG/DL (8.3-10.6); CARBON DIOXIDE LEVEL 30 MMOL/L (20-31); CHLORIDE LEVEL 105 MMOL/L (98-107); CHOLESTEROL LEVEL 161 MG/DL (<200); CHOLESTEROL RISK RATIO 1.94 (<5); CREATININE FOR GFR 1.13 MG/DL (0.70-1.30); GLOMERULAR FILTRATION RATE > 60.0 (>42); GLUCOSE, FASTING 91 MG/DL (74-106); HDL CHOLESTEROL 82.6 MG/DL (>40); LDL CHOLESTEROL 65.8 MG/DL (<100); NON-HDL-C 78.4 MG/DL; POTASSIUM SERUM 4.5 MMOL/L (3.5-5.1); SODIUM LEVEL 145 MMOL/L (136-145); TOTAL PROTEIN 6.8 G/DL (5.7-8.2); TRIGLYCERIDES LEVEL 63 MG/DL (<150)
[2024-06-21 14:43] LABS: TOTAL 25(OH) VITAMIN D 21.6 NG/ML (20.0-100.0)
== END ==
LOC: M LABDRWAD 13:15
PROVIDERS: ATTEND Family Medicine
DX: E55.9 Vitamin D deficiency, unspecified (principal); E78.5 Hyperlipidemia, unspecified

== ENCOUNTER 2024-07-30 16:05 | Inpatient (IN) | payer MEDICARE ==
[~2024-07-30] VITALS: Ht 170.2 cm; Wt 77.3 kg
[2024-07-30] MEDS: MORPHINE 2 MG/ML 1ML VIAL IV PRN (17:01)
[2024-07-30 17:34] LABS: BASO % 0.1 % (0.0-1.0); EOS % 0.1 % (0.0-3.0); HEMATOCRIT 44.5 % (42.0-52.0); LYMPH # 0.5 10^3/uL (1.5-5.0); MEAN CORPUSCULAR HEMOGLOBIN 32.5 pg (27.0-33.0); MEAN CORPUSCULAR HGB CONC 33.7 g/dl (32.0-36.5); MEAN CORPUSCULAR VOLUME 96.3 fl (80.0-96.0); MONO # 1.1 10^3/uL (0.0-0.8); MONO % 8.2 % (2.0-8.0); NEUTROPHILS # 11.2 10^3/uL (1.5-8.5); NEUTROPHILS % 87.1 % (36.0-66.0); PLATELET COUNT, AUTOMATED 147 10^3/uL (150-450); RED BLOOD COUNT 4.62 10^6/uL (4.30-6.10); WHITE BLOOD COUNT 12.9 10^3/uL (4.0-10.0)
[2024-07-30 17:47] LABS: INR 0.99; PARTIAL THROMBOPLASTIN TIME 26.3 SECONDS (24.8-34.2); PROTHROMBIN TIME 13.4 SECONDS (12.5-14.5)
[2024-07-30 17:54] LABS: AMPHETAMINES LEVEL URINE NEGATIVE (NEGATIVE); BARBITURATES URINE NEGATIVE (NEGATIVE); BENZODIAZEPINES URINE NEGATIVE (NEGATIVE); CANNABINOIDS URINE NEGATIVE (NEGATIVE); COCAINE METABOLITE URINE NEGATIVE (NEGATIVE); METHADONE URINE NEGATIVE (NEGATIVE); OPIATES URINE NEGATIVE (NEGATIVE); PHENCYCLIDINE URINE NEGATIVE (NEGATIVE)
[2024-07-30 17:56] LABS: ETHYL ALCOHOL (ETHANOL) < 0.003 % (0.000-0.010)
[2024-07-30 17:58] LABS: ALBUMIN 3.8 G/DL (3.2-5.2); ALKALINE PHOSPHATASE 104 U/L (40-129); ALT/SGPT 23 U/L (7.0-40); AST/SGOT 135 U/L (<34); BILIRUBIN,DIRECT 0.3 MG/DL (<0.4); BLOOD UREA NITROGEN 29 MG/DL (9-23); CALCIUM LEVEL 8.8 MG/DL (8.3-10.6); CARBON DIOXIDE LEVEL 26 MMOL/L (20-31); CHLORIDE LEVEL 97 MMOL/L (98-107); CREATININE FOR GFR 1.12 MG/DL (0.70-1.30); GLOMERULAR FILTRATION RATE > 60.0 (>42); GLUCOSE, FASTING 116 MG/DL (74-106); POTASSIUM SERUM 5.2 MMOL/L (3.5-5.1); SODIUM LEVEL 137 MMOL/L (136-145)
[2024-07-30 18:24] LABS: CPK CREATINE PHOSPHOKINASE 5757 U/L (46-171)
[2024-07-30] MEDS: NS 500 ML IV ONE (19:19)
[2024-07-30 19:56] LABS: KETONE, URINE AUTO RFX 1+ mg/dL (NEGATIVE); MUCUS, URINE RFX SMALL (NEGATIVE); NITRITE, URINE AUTO RFX NEGATIVE (NEGATIVE); RBC, URINE AUTO RFX 4 /HPF (0-3); SQUAM EPITHELIAL CELL UR AURFX 1 /HPF (0-6)
[2024-07-30 19:59] LABS: LEUKOCYTE ESTERASE UR AUTO RFX TRACE (NEGATIVE); WBC, URINE AUTO RFX 29 /HPF (0-3)
[2024-07-30] MEDS: NS (Normal Saline) 0.9% 1,000 ML IV SCH (20:12)
[2024-07-30] MEDS: cefTRIAXone SOD 1 GM in DEXTROSE 5% (D5W) ADV/MINI-BAG 50 ML IV ONE (20:30)
[2024-07-30] MEDS ORDERED: HOME MED LIST COMPLETE! XX SCH (21:15)
[2024-07-31] MEDS: SIMVASTATIN 20 MG TAB PO SCH (04:02)
[2024-07-31] MEDS: NS (Normal Saline) 0.9% 1,000 ML IV SCH (04:03)
[2024-07-31 06:39] LABS: HEMATOCRIT 38.1 % (42.0-52.0); MEAN CORPUSCULAR HEMOGLOBIN 32.3 pg (27.0-33.0); MEAN CORPUSCULAR HGB CONC 33.1 g/dl (32.0-36.5); MEAN CORPUSCULAR VOLUME 97.7 fl (80.0-96.0); PLATELET COUNT, AUTOMATED 115 10^3/uL (150-450); WHITE BLOOD COUNT 9.2 10^3/uL (4.0-10.0)
[2024-07-31 06:41] LABS: HEMOGLOBIN 12.6 g/dl (13.5-17.5)
[2024-07-31] MEDS: HEPARIN SOD (PORCINE) 5000UNITS/ML 1ML VIAL/SYRINGE SQ SCH (06:49)
[2024-07-31 07:31] LABS: ALBUMIN 2.8 G/DL (3.2-5.2); BILIRUBIN,TOTAL 0.6 MG/DL (0.3-1.2); CALCIUM LEVEL 7.8 MG/DL (8.3-10.6); CREATININE FOR GFR 1.25 MG/DL (0.70-1.30); GLOMERULAR FILTRATION RATE 59.5 (>42); MAGNESIUM LEVEL 2.1 MG/DL (1.8-2.4); POTASSIUM SERUM 4.3 MMOL/L (3.5-5.1); TOTAL PROTEIN 5.5 G/DL (5.7-8.2)
[2024-07-31] MEDS: NS 500 ML IV ONE (09:00)
[2024-07-31] MEDS ORDERED: CYANOCOBALAMIN 1,000MCG/ML 1ML VIAL IM SCH (09:00)
[2024-07-31] MEDS: ADVAIR HFA 230/21MCG INHALER INH SCH (09:37)
[2024-07-31] MEDS: FOLIC ACID 1MG TAB PO SCH (10:39)
[2024-07-31] MEDS: MELOXICAM (MOBIC) 7.5 MG TAB PO SCH (10:39)
[2024-07-31] MEDS: LIDOCAINE 5% (LIDODERM) PATCH TD SCH (10:39)
[2024-07-31] MEDS: MULTIVITAMINS/MINERALS THERAP 1 TAB PO ONE (10:39)
[2024-07-31] MEDS: THIAMINE 100 MG TAB PO SCH (10:39)
[2024-07-31] MEDS: methocarbamoL 750 MG TAB PO SCH (10:40)
[2024-07-31] MEDS: CYANOCOBALAMIN 1,000MCG/ML 1ML VIAL IM SCH (13:10)
[2024-07-31 15:05] VITALS: BP 113/76; TEMP 97.5; O2SAT 95
[2024-07-31] MEDS ORDERED: ISOVUE-370 76% 100ML VIAL As Ordered ONE (15:37)
[2024-07-31 15:41] VITALS: BP 113/76
[2024-07-31] MEDS: ASPIRIN 81MG ENTERIC TABLET PO SCH (16:02)
[2024-07-31] MEDS: CLOPIDOGREL 75 MG TAB PO SCH (16:02)
[2024-07-31 19:32] VITALS: BP 95/51; TEMP 97.2; TEMP 99.6; O2SAT 94
[2024-07-31] MEDS: ATORVASTATIN 20 MG TAB PO SCH (20:59)
[2024-07-31] MEDS: cefTRIAXone SOD 1 GM in DEXTROSE 5% (D5W) ADV/MINI-BAG 50 ML IV SCH (20:59)
[2024-07-31 21:18] VITALS: BP 103/51
[2024-08-01 04:30] VITALS: BP 125/63; TEMP 98.4; O2SAT 94
[2024-08-01 07:06] LABS: BASO % 0.3 % (0.0-1.0); EOS # 0.1 10^3/uL (0.0-0.5); EOS % 0.8 % (0.0-3.0); HEMATOCRIT 32.9 % (42.0-52.0); HEMOGLOBIN 10.8 g/dl (13.5-17.5); LYMPH # 0.9 10^3/uL (1.5-5.0); LYMPH % 14.4 % (24.0-44.0); MEAN CORPUSCULAR HEMOGLOBIN 32.4 pg (27.0-33.0); MEAN CORPUSCULAR HGB CONC 32.8 g/dl (32.0-36.5); MEAN CORPUSCULAR VOLUME 98.8 fl (80.0-96.0); MONO # 0.7 10^3/uL (0.0-0.8); MONO % 11.4 % (2.0-8.0); NEUTROPHILS # 4.6 10^3/uL (1.5-8.5); NEUTROPHILS % 72.8 % (36.0-66.0); PLATELET COUNT, AUTOMATED 101 10^3/uL (150-450); RED BLOOD COUNT 3.33 10^6/uL (4.30-6.10); WHITE BLOOD COUNT 6.3 10^3/uL (4.0-10.0)
[2024-08-01 07:30] LABS: ALBUMIN 2.3 G/DL (3.2-5.2); ALKALINE PHOSPHATASE 78 U/L (40-129); ALT/SGPT 23 U/L (7.0-40); AST/SGOT 112 U/L (<34); BILIRUBIN,TOTAL 0.3 MG/DL (0.3-1.2); BLOOD UREA NITROGEN 28 MG/DL (9-23); CALCIUM LEVEL 7.7 MG/DL (8.3-10.6); CARBON DIOXIDE LEVEL 23 MMOL/L (20-31); CHLORIDE LEVEL 110 MMOL/L (98-107); CHOLESTEROL LEVEL 131 MG/DL (<200); CHOLESTEROL RISK RATIO 2.18 (<5); CREATININE FOR GFR 0.93 MG/DL (0.70-1.30); GLOMERULAR FILTRATION RATE > 60.0 (>42); GLUCOSE, FASTING 100 MG/DL (74-106); LDL CHOLESTEROL 50.6 MG/DL (<100); POTASSIUM SERUM 3.9 MMOL/L (3.5-5.1); SODIUM LEVEL 141 MMOL/L (136-145); TOTAL PROTEIN 4.8 G/DL (5.7-8.2); TRIGLYCERIDES LEVEL 102 MG/DL (<150)
[2024-08-01 07:47] LABS: HEMOGLOBIN A1c 4.8 % (4.0-6.0)
[2024-08-01 07:49] LABS: CPK CREATINE PHOSPHOKINASE 3073 U/L (46-171)
[2024-08-01] MEDS: oxyCODONE 5MG TAB PO PRN ×2 (08:41→21:44)
[2024-08-01 12:00] VITALS: BP 104/51; TEMP 98.4; O2SAT 94
[2024-08-01] MEDS: SINEMET 25-100 MG TAB PO SCH (12:07)
[2024-08-01] MEDS: CYANOCOBALAMIN 1,000MCG/ML 1ML VIAL IM SCH (18:10)
[2024-08-01] MEDS: NS (Normal Saline) 0.9% 1,000 ML IV SCH (21:00)
[2024-08-01 21:33] VITALS: BP 125/59; TEMP 98.8; O2SAT 98
[2024-08-02 03:48] VITALS: BP 111/66; TEMP 98.7; O2SAT 94
[2024-08-02 03:50] VITALS: BP 111/66
[2024-08-02 05:41] LABS: BASO % 0.4 % (0.0-1.0); EOS # 0.1 10^3/uL (0.0-0.5); EOS % 2.6 % (0.0-3.0); HEMATOCRIT 30.9 % (42.0-52.0); HEMOGLOBIN 9.9 g/dl (13.5-17.5); LYMPH % 18.2 % (24.0-44.0); MEAN CORPUSCULAR HEMOGLOBIN 32.2 pg (27.0-33.0); MEAN CORPUSCULAR VOLUME 100.7 fl (80.0-96.0); MONO # 0.5 10^3/uL (0.0-0.8); MONO % 10.1 % (2.0-8.0); NEUTROPHILS # 3.6 10^3/uL (1.5-8.5); NEUTROPHILS % 68.1 % (36.0-66.0); PLATELET COUNT, AUTOMATED 103 10^3/uL (150-450); RED BLOOD COUNT 3.07 10^6/uL (4.30-6.10); WHITE BLOOD COUNT 5.3 10^3/uL (4.0-10.0)
[2024-08-02 06:06] LABS: BLOOD UREA NITROGEN 20 MG/DL (9-23); CALCIUM LEVEL 7.6 MG/DL (8.3-10.6); CARBON DIOXIDE LEVEL 24 MMOL/L (20-31); CHLORIDE LEVEL 111 MMOL/L (98-107); CREATININE FOR GFR 0.88 MG/DL (0.70-1.30); GLOMERULAR FILTRATION RATE > 60.0 (>42); GLUCOSE, FASTING 94 MG/DL (74-106); POTASSIUM SERUM 4.4 MMOL/L (3.5-5.1); SODIUM LEVEL 142 MMOL/L (136-145)
[2024-08-02 06:29] LABS: CPK CREATINE PHOSPHOKINASE 2475 U/L (46-171)
[2024-08-02 12:45] VITALS: BP 114/53; TEMP 98.4; O2SAT 94
[2024-08-02 20:35] VITALS: BP 138/56; TEMP 99.1; O2SAT 96
[2024-08-03 04:11] VITALS: BP 141/61; TEMP 99; O2SAT 95
[2024-08-03 05:58] LABS: BASO % 0.2 % (0.0-1.0); EOS # 0.2 10^3/uL (0.0-0.5); EOS % 2.9 % (0.0-3.0); HEMATOCRIT 30.4 % (42.0-52.0); HEMOGLOBIN 9.9 g/dl (13.5-17.5); LYMPH # 0.9 10^3/uL (1.5-5.0); LYMPH % 15.1 % (24.0-44.0); MEAN CORPUSCULAR HEMOGLOBIN 32.6 pg (27.0-33.0); MEAN CORPUSCULAR HGB CONC 32.6 g/dl (32.0-36.5); MONO # 0.5 10^3/uL (0.0-0.8); MONO % 9.2 % (2.0-8.0); NEUTROPHILS # 4.2 10^3/uL (1.5-8.5); NEUTROPHILS % 71.9 % (36.0-66.0); PLATELET COUNT, AUTOMATED 123 10^3/uL (150-450); RED BLOOD COUNT 3.04 10^6/uL (4.30-6.10); WHITE BLOOD COUNT 5.8 10^3/uL (4.0-10.0)
[2024-08-03 06:35] LABS: BLOOD UREA NITROGEN 15 MG/DL (9-23); CALCIUM LEVEL 8.1 MG/DL (8.3-10.6); CARBON DIOXIDE LEVEL 23 MMOL/L (20-31); CHLORIDE LEVEL 109 MMOL/L (98-107); CREATININE FOR GFR 0.81 MG/DL (0.70-1.30); GLOMERULAR FILTRATION RATE > 60.0 (>42); GLUCOSE, FASTING 96 MG/DL (74-106); POTASSIUM SERUM 4.4 MMOL/L (3.5-5.1); SODIUM LEVEL 142 MMOL/L (136-145)
[2024-08-03 06:50] LABS: CPK CREATINE PHOSPHOKINASE 2197 U/L (46-171)
[2024-08-03] MEDS ORDERED: MOM 30ML SUSPENSION UDC PO PRN (08:40)
[2024-08-03] MEDS ORDERED: MIRALAX *UNIT DOSE* 17GM PACKET PO PRN (08:40)
[2024-08-03] MEDS: SENOKOT S TAB PO SCH (09:39)
[2024-08-03 12:00] VITALS: BP 149/75; TEMP 98.3; O2SAT 95
[2024-08-03 17:53] VITALS: BP 148/77; TEMP 101; O2SAT 95
[2024-08-03] MEDS: ACETAMINOPHEN 325 MG TAB PO PRN (18:00)
[2024-08-03 19:01] VITALS: TEMP 100.5
[2024-08-03 21:22] VITALS: BP 143/70; TEMP 100.6; TEMP 99; O2SAT 93
[2024-08-03 21:24] LABS: KETONE, URINE AUTO RFX TRACE mg/dL (NEGATIVE); LEUKOCYTE ESTERASE UR AUTO RFX NEGATIVE (NEGATIVE); MUCUS, URINE RFX SMALL (NEGATIVE); NITRITE, URINE AUTO RFX NEGATIVE (NEGATIVE); RBC, URINE AUTO RFX 2 /HPF (0-3); SQUAM EPITHELIAL CELL UR AURFX 0 /HPF (0-6); WBC, URINE AUTO RFX 4 /HPF (0-3)
[2024-08-04 03:45] VITALS: BP 148/90; TEMP 101.5; O2SAT 95
[2024-08-04 05:25] VITALS: TEMP 97.9
[2024-08-04 06:02] LABS: BASO % 0.5 % (0.0-1.0); EOS # 0.2 10^3/uL (0.0-0.5); EOS % 2.3 % (0.0-3.0); HEMATOCRIT 30.7 % (42.0-52.0); HEMOGLOBIN 10.2 g/dl (13.5-17.5); LYMPH # 0.7 10^3/uL (1.5-5.0); LYMPH % 8.5 % (24.0-44.0); MEAN CORPUSCULAR HEMOGLOBIN 32.8 pg (27.0-33.0); MEAN CORPUSCULAR HGB CONC 33.2 g/dl (32.0-36.5); MEAN CORPUSCULAR VOLUME 98.7 fl (80.0-96.0); MONO # 0.8 10^3/uL (0.0-0.8); MONO % 10.4 % (2.0-8.0); NEUTROPHILS % 77.4 % (36.0-66.0); PLATELET COUNT, AUTOMATED 134 10^3/uL (150-450); RED BLOOD COUNT 3.11 10^6/uL (4.30-6.10); WHITE BLOOD COUNT 7.8 10^3/uL (4.0-10.0)
[2024-08-04 06:23] LABS: ALBUMIN 2.4 G/DL (3.2-5.2); ALKALINE PHOSPHATASE 97 U/L (40-129); ALT/SGPT 14 U/L (7.0-40); AST/SGOT 86 U/L (<34); BILIRUBIN,TOTAL 0.8 MG/DL (0.3-1.2); BLOOD UREA NITROGEN 17 MG/DL (9-23); CALCIUM LEVEL 8.2 MG/DL (8.3-10.6); CARBON DIOXIDE LEVEL 25 MMOL/L (20-31); CHLORIDE LEVEL 105 MMOL/L (98-107); CREATININE FOR GFR 0.84 MG/DL (0.70-1.30); GLOMERULAR FILTRATION RATE > 60.0 (>42); GLUCOSE, FASTING 96 MG/DL (74-106); MAGNESIUM LEVEL 1.9 MG/DL (1.8-2.4); POTASSIUM SERUM 4.5 MMOL/L (3.5-5.1); SODIUM LEVEL 138 MMOL/L (136-145); TOTAL PROTEIN 5.1 G/DL (5.7-8.2)
[2024-08-04] MEDS ORDERED: PIPERACILLIN/TAZOBACTAM SOD 3.375 GM in DEXTROSE 5% (D5W) ADV/MINI-BAG 50 ML IV SCH (11:10)
[2024-08-04] MEDS ORDERED: DOXYCYCLINE HYCLATE 100 MG in DEXTROSE 5% (D5W) MINI-BAG PLU 100 ML IV SCH (11:10)
[2024-08-04 11:38] LABS: PROCALCITONIN 0.19 ng/ml
[2024-08-04 12:00] VITALS: BP 108/54; TEMP 98.1; O2SAT 93
[2024-08-04] MEDS: guaiFENesin ER TABLET 600 MG TAB PO SCH (12:29)
[2024-08-04] MEDS: PIPERACILLIN/TAZOBACTAM SOD 4.5 GM in DEXTROSE 5% (D5W) ADV/MINI-BAG 50 ML IV SCH (13:43)
[2024-08-04] MEDS: DOXYCYCLINE HYCLATE 100MG TABLET PO SCH (13:43)
[2024-08-04 20:20] VITALS: BP 137/60; TEMP 101; O2SAT 91
[2024-08-04 22:00] VITALS: TEMP 98.3
[2024-08-05 06:00] VITALS: BP 155/69; TEMP 100.3; O2SAT 91
[2024-08-05 06:07] LABS: BASO % 0.4 % (0.0-1.0); EOS # 0.2 10^3/uL (0.0-0.5); EOS % 1.7 % (0.0-3.0); HEMATOCRIT 31.9 % (42.0-52.0); HEMOGLOBIN 10.6 g/dl (13.5-17.5); LYMPH # 0.7 10^3/uL (1.5-5.0); LYMPH % 7.4 % (24.0-44.0); MEAN CORPUSCULAR HEMOGLOBIN 32.4 pg (27.0-33.0); MEAN CORPUSCULAR HGB CONC 33.2 g/dl (32.0-36.5); MEAN CORPUSCULAR VOLUME 97.6 fl (80.0-96.0); MONO # 0.9 10^3/uL (0.0-0.8); NEUTROPHILS # 7.1 10^3/uL (1.5-8.5); NEUTROPHILS % 79.4 % (36.0-66.0); PLATELET COUNT, AUTOMATED 158 10^3/uL (150-450); RED BLOOD COUNT 3.27 10^6/uL (4.30-6.10); WHITE BLOOD COUNT 8.9 10^3/uL (4.0-10.0)
[2024-08-05 06:26] LABS: ALBUMIN 2.3 G/DL (3.2-5.2); ALKALINE PHOSPHATASE 108 U/L (40-129); ALT/SGPT 13 U/L (7.0-40); AST/SGOT 62 U/L (<34); BILIRUBIN,TOTAL 0.8 MG/DL (0.3-1.2); BLOOD UREA NITROGEN 22 MG/DL (9-23); CALCIUM LEVEL 8.4 MG/DL (8.3-10.6); CARBON DIOXIDE LEVEL 27 MMOL/L (20-31); CHLORIDE LEVEL 102 MMOL/L (98-107); CREATININE FOR GFR 1.08 MG/DL (0.70-1.30); GLOMERULAR FILTRATION RATE > 60.0 (>42); GLUCOSE, FASTING 100 MG/DL (74-106); POTASSIUM SERUM 4.5 MMOL/L (3.5-5.1); SODIUM LEVEL 136 MMOL/L (136-145); TOTAL PROTEIN 5.2 G/DL (5.7-8.2)
[2024-08-05] MEDS ORDERED: BISACODYL 10MG SUPP PR PRN (08:20)
[2024-08-05] MEDS: FUROSEMIDE 20MG/2ML VIAL IV ONE (09:00)
[2024-08-05] MEDS: FLEET ENEMA PR ONE (10:54)
[2024-08-05 12:00] VITALS: BP 154/85; TEMP 101; O2SAT 97
[2024-08-05 14:35] VITALS: BP 112/61
[2024-08-05 16:09] VITALS: TEMP 102.1
[2024-08-05 16:59] LABS: PROCALCITONIN 0.31 ng/ml
[2024-08-05 17:47] VITALS: TEMP 99.2
[2024-08-05 18:41] LABS: RSV AMPLIFICATION NEGATIVE (NEGATIVE)
[2024-08-05 21:10] VITALS: BP 116/54; TEMP 98.8; O2SAT 90
[2024-08-05] MEDS: OSELTAMIVIR PHOSPHATE 75 MG CAP PO ONE (22:34)
[2024-08-06 03:30] VITALS: BP 115/53; TEMP 98.4; O2SAT 90
[2024-08-06 06:00] LABS: BASO % 0.3 % (0.0-1.0); EOS # 0.2 10^3/uL (0.0-0.5); EOS % 2.1 % (0.0-3.0); HEMATOCRIT 30.1 % (42.0-52.0); HEMOGLOBIN 10.1 g/dl (13.5-17.5); LYMPH # 0.8 10^3/uL (1.5-5.0); LYMPH % 8.1 % (24.0-44.0); MEAN CORPUSCULAR HEMOGLOBIN 32.3 pg (27.0-33.0); MEAN CORPUSCULAR HGB CONC 33.6 g/dl (32.0-36.5); MEAN CORPUSCULAR VOLUME 96.2 fl (80.0-96.0); MONO # 1.1 10^3/uL (0.0-0.8); MONO % 11.7 % (2.0-8.0); NEUTROPHILS # 7.2 10^3/uL (1.5-8.5); NEUTROPHILS % 76.2 % (36.0-66.0); PLATELET COUNT, AUTOMATED 188 10^3/uL (150-450); RED BLOOD COUNT 3.13 10^6/uL (4.30-6.10); WHITE BLOOD COUNT 9.4 10^3/uL (4.0-10.0)
[2024-08-06 06:31] LABS: ALBUMIN 2.1 G/DL (3.2-5.2); ALKALINE PHOSPHATASE 125 U/L (40-129); ALT/SGPT < 9 U/L (7.0-40); AST/SGOT 49 U/L (<34); BILIRUBIN,TOTAL 0.6 MG/DL (0.3-1.2); BLOOD UREA NITROGEN 28 MG/DL (9-23); CALCIUM LEVEL 7.8 MG/DL (8.3-10.6); CARBON DIOXIDE LEVEL 26 MMOL/L (20-31); CHLORIDE LEVEL 102 MMOL/L (98-107); CREATININE FOR GFR 1.12 MG/DL (0.70-1.30); GLOMERULAR FILTRATION RATE > 60.0 (>42); GLUCOSE, FASTING 95 MG/DL (74-106); SODIUM LEVEL 136 MMOL/L (136-145); TOTAL PROTEIN 5.2 G/DL (5.7-8.2)
[2024-08-06] MEDS ORDERED: OSELTAMIVIR PHOSPHATE 75 MG CAP PO SCH (09:00)
[2024-08-06] MEDS: OSELTAMIVIR PHOSPHATE 30MG CAPSULE PO SCH (09:25)
[2024-08-06] MEDS ORDERED: AMOX875T2 PO (09:49)
[2024-08-06] MEDS ORDERED: OSEL30CA PO (09:49)
[2024-08-06] MEDS ORDERED: MUCI600T31 PO (09:49)
[2024-08-06] MEDS ORDERED: ADVA230A INH (09:49)
[2024-08-06] MEDS ORDERED: LIDO5TD TD (09:49)
[2024-08-06] MEDS ORDERED: ASPI81TAEC PO (09:49)
[2024-08-06] MEDS ORDERED: ATOR80TA59 PO (09:49)
[2024-08-06] MEDS ORDERED: CLOP75TA2 PO (09:49)
[2024-08-06] MEDS ORDERED: SENN-52 PO (09:49)
[2024-08-06] MEDS ORDERED: MOM30SS2 PO (09:49)
[2024-08-06] MEDS ORDERED: MIRA33506 PO (09:49)
[2024-08-06] MEDS ORDERED: METH-1165 PO (09:49)
[2024-08-06] MEDS ORDERED: DOXY100T PO (09:49)
[2024-08-06] MEDS ORDERED: CARB25TA9 PO (09:49)
== END 2024-08-06 10:34 | DRG 64 ==
LOC: EDBD 16:05 → M ED 16:05 → M ED INP 22:08 → M MS4PR 07-31 15:05 → M MSPAV 08-02 16:19
PROVIDERS: ADMIT Family Medicine; ATTEND Internal Medicine
DX: I63.9 Cerebral infarction, unspecified (principal); J10.08 Influenza due to other identified influenza virus with other specified pneumonia; J69.0 Pneumonitis due to inhalation of food and vomit; A41.9 Sepsis, unspecified organism; M62.82 Rhabdomyolysis; N39.0 Urinary tract infection, site not specified; R53.1 Weakness; J44.9 Chronic obstructive pulmonary disease, unspecified; E78.5 Hyperlipidemia, unspecified; M48.061 Spinal stenosis, lumbar region without neurogenic claudication; M17.0 Bilateral primary osteoarthritis of knee; R74.01 Elevation of levels of liver transaminase levels; E87.5 Hyperkalemia; M50.30 Other cervical disc degeneration, unspecified cervical region; G20.A1 Parkinson's disease without dyskinesia, without mention of fluctuations; G58.9 Mononeuropathy, unspecified; M21.372 Foot drop, left foot; M48.02 Spinal stenosis, cervical region; L89.326 Pressure-induced deep tissue damage of left buttock; L89.310 Pressure ulcer of right buttock, unstageable; E55.9 Vitamin D deficiency, unspecified; F10.10 Alcohol abuse, uncomplicated; Z87.891 Personal history of nicotine dependence; Z79.899 Other long term (current) drug therapy

== ENCOUNTER 2024-08-06 08:56 | Inpatient (IN) | payer MEDICARE ==
[~2024-08-06] VITALS: Ht 170.2 cm; Wt 84.3 kg
[2024-08-06] MEDS ORDERED: CLOP75TA2 PO (09:49)
[2024-08-06] MEDS ORDERED: ADVA230A INH (09:49)
[2024-08-06] MEDS ORDERED: ASPI81TAEC PO (09:49)
[2024-08-06] MEDS ORDERED: OSEL30CA PO (09:49)
[2024-08-06] MEDS ORDERED: CARB25TA9 PO (09:49)
[2024-08-06] MEDS ORDERED: MIRA33506 PO (09:49)
[2024-08-06] MEDS ORDERED: DOXY100T PO (09:49)
[2024-08-06] MEDS ORDERED: LIDO5TD TD (09:49)
[2024-08-06] MEDS ORDERED: METH-1165 PO (09:49)
[2024-08-06] MEDS ORDERED: MOM30SS2 PO (09:49)
[2024-08-06] MEDS ORDERED: SENN-52 PO (09:49)
[2024-08-06] MEDS ORDERED: AMOX875T2 PO (09:49)
[2024-08-06] MEDS ORDERED: MUCI600T31 PO (09:49)
[2024-08-06] MEDS ORDERED: ATOR80TA59 PO (09:49)
[2024-08-06] MEDS ORDERED: SIMETHICONE 80MG CHEW TAB PO PRN (10:55)
[2024-08-06] MEDS ORDERED: MOM 30ML SUSPENSION UDC PO PRN (10:55)
[2024-08-06] MEDS ORDERED: BISACODYL 10MG SUPP PR PRN (10:55)
[2024-08-06] MEDS ORDERED: BISACODYL 5MG TAB PO PRN (10:55)
[2024-08-06] MEDS ORDERED: MAALOX 30 ML SUSP *UDC PO PRN (10:55)
[2024-08-06 11:00] VITALS: BP 125/58; TEMP 98.1; O2SAT 92
[2024-08-06] MEDS ORDERED: ONDANSETRON 4MG ORAL DISINTEGRATING TAB SL PRN (11:35)
[2024-08-06] MEDS: FOLIC ACID 1MG TAB PO SCH (12:35)
[2024-08-06] MEDS: THIAMINE 100 MG TAB PO SCH (12:36)
[2024-08-06] MEDS ORDERED: PILL CUTTER 1 EACH XX PRN (14:00)
[2024-08-06] MEDS: BISACODYL 5MG TAB PO SCH (17:40)
[2024-08-06] MEDS: methocarbamoL 750 MG TAB PO SCH (17:40)
[2024-08-06] MEDS: SINEMET 25-100 MG TAB PO SCH (17:40)
[2024-08-06] MEDS: IBUPROFEN 400MG TAB PO SCH (17:42)
[2024-08-06] MEDS: HEPARIN SOD (PORCINE) 5000UNITS/ML 1ML VIAL/SYRINGE SC SCH (17:42)
[2024-08-06 19:46] VITALS: BP 113/57; TEMP 98.8; O2SAT 91
[2024-08-06] MEDS: ADVAIR HFA 230/21MCG INHALER INH SCH (19:52)
[2024-08-06] MEDS: ATORVASTATIN 20 MG TAB PO SCH (20:04)
[2024-08-06] MEDS: DOXYCYCLINE HYCLATE 100MG TABLET PO SCH (20:04)
[2024-08-06] MEDS: guaiFENesin ER TABLET 600 MG TAB PO SCH (20:04)
[2024-08-06] MEDS: AUGMENTIN 875 MG TAB PO SCH (20:04)
[2024-08-06] MEDS: FAMOTIDINE 20 MG TAB PO SCH (20:04)
[2024-08-06] MEDS: OSELTAMIVIR PHOSPHATE 30MG CAPSULE PO SCH (20:04)
[2024-08-06] MEDS: SENOKOT S TAB PO SCH (20:05)
[2024-08-06] MEDS ORDERED: SENOKOT S TAB PO SCH (21:00)
[2024-08-06] MEDS ORDERED: FAMOTIDINE 20 MG TAB PO SCH (21:00)
[2024-08-07 03:23] VITALS: BP 134/66; TEMP 97.6; O2SAT 91
[2024-08-07 06:39] LABS: BASO # 0.1 10^3/uL (0.0-0.2); BASO % 0.5 % (0.0-1.0); EOS # 0.3 10^3/uL (0.0-0.5); EOS % 2.8 % (0.0-3.0); HEMATOCRIT 32.1 % (42.0-52.0); HEMOGLOBIN 10.4 g/dl (13.5-17.5); LYMPH # 0.6 10^3/uL (1.5-5.0); LYMPH % 6.7 % (24.0-44.0); MEAN CORPUSCULAR HEMOGLOBIN 32.2 pg (27.0-33.0); MEAN CORPUSCULAR HGB CONC 32.4 g/dl (32.0-36.5); MEAN CORPUSCULAR VOLUME 99.4 fl (80.0-96.0); MONO # 0.8 10^3/uL (0.0-0.8); MONO % 8.9 % (2.0-8.0); NEUTROPHILS # 7.4 10^3/uL (1.5-8.5); NEUTROPHILS % 79.1 % (36.0-66.0); PLATELET COUNT, AUTOMATED 225 10^3/uL (150-450); RED BLOOD COUNT 3.23 10^6/uL (4.30-6.10); WHITE BLOOD COUNT 9.4 10^3/uL (4.0-10.0)
[2024-08-07 07:06] LABS: ALBUMIN 2.2 G/DL (3.2-5.2); ALKALINE PHOSPHATASE 165 U/L (40-129); ALT/SGPT 21 U/L (7.0-40); AST/SGOT 75 U/L (<34); BILIRUBIN,TOTAL 0.5 MG/DL (0.3-1.2); BLOOD UREA NITROGEN 28 MG/DL (9-23); CALCIUM LEVEL 8.4 MG/DL (8.3-10.6); CARBON DIOXIDE LEVEL 28 MMOL/L (20-31); CHLORIDE LEVEL 105 MMOL/L (98-107); CREATININE FOR GFR 1.08 MG/DL (0.70-1.30); GLOMERULAR FILTRATION RATE > 60.0 (>42); GLUCOSE, FASTING 91 MG/DL (74-106); POTASSIUM SERUM 4.2 MMOL/L (3.5-5.1); SODIUM LEVEL 140 MMOL/L (136-145); TOTAL PROTEIN 5.5 G/DL (5.7-8.2)
[2024-08-07] MEDS: LIDOCAINE 5% (LIDODERM) PATCH TD SCH (08:10)
[2024-08-07] MEDS: MIRALAX *UNIT DOSE* 17GM PACKET PO SCH (08:13)
[2024-08-07] MEDS: OMEPRAZOLE 20MG CAP PO SCH (08:14)
[2024-08-07] MEDS: CLOPIDOGREL 75 MG TAB PO SCH (08:14)
[2024-08-07] MEDS: MULTIVITAMINS/MINERALS THERAP 1 TAB PO SCH (08:15)
[2024-08-07] MEDS: ASPIRIN 81MG ENTERIC TABLET PO SCH (08:15)
[2024-08-07 12:00] VITALS: BP 107/56; TEMP 97.7; O2SAT 93
[2024-08-07] MEDS: SPIRONOLACTONE 12.5MG PER 1/2 TABLET PO ONE (15:50)
[2024-08-07 20:00] VITALS: BP 117/57; TEMP 97.4; O2SAT 93
[2024-08-08 04:00] VITALS: BP 139/71; TEMP 98.8; O2SAT 93
[2024-08-08] MEDS: SPIRONOLACTONE 12.5MG PER 1/2 TABLET PO SCH (10:08)
[2024-08-08] MEDS: ACETAMINOPHEN 500 MG TAB PO PRN (10:08)
[2024-08-08 12:00] VITALS: BP 115/56; TEMP 97.6; O2SAT 94
[2024-08-08] MEDS: PREGABALIN 75 MG CAP(LYRICA) PO ONE (14:29)
[2024-08-08 20:00] VITALS: BP 136/64; TEMP 98.4; O2SAT 91
[2024-08-08] MEDS: PREGABALIN 75 MG CAP(LYRICA) PO SCH (20:57)
[2024-08-09] VITALS (8 sets, daily range): BP systolic 120–138; BP diastolic 54–62; TEMP 97.2–99.7; O2SAT 87–95
[2024-08-09 05:59] LABS: BASO % 0.4 % (0.0-1.0); EOS # 0.2 10^3/uL (0.0-0.5); EOS % 1.8 % (0.0-3.0); HEMATOCRIT 28.3 % (42.0-52.0); HEMOGLOBIN 9.3 g/dl (13.5-17.5); LYMPH # 1.1 10^3/uL (1.5-5.0); LYMPH % 10.7 % (24.0-44.0); MEAN CORPUSCULAR HEMOGLOBIN 32.1 pg (27.0-33.0); MEAN CORPUSCULAR HGB CONC 32.9 g/dl (32.0-36.5); MEAN CORPUSCULAR VOLUME 97.6 fl (80.0-96.0); MONO # 0.7 10^3/uL (0.0-0.8); MONO % 7.1 % (2.0-8.0); NEUTROPHILS # 7.9 10^3/uL (1.5-8.5); NEUTROPHILS % 76.3 % (36.0-66.0); PLATELET COUNT, AUTOMATED 282 10^3/uL (150-450); WHITE BLOOD COUNT 10.4 10^3/uL (4.0-10.0)
[2024-08-09 06:28] LABS: ALBUMIN 2.2 G/DL (3.2-5.2); ALKALINE PHOSPHATASE 180 U/L (40-129); ALT/SGPT 36 U/L (7.0-40); AST/SGOT 91 U/L (<34); BILIRUBIN,TOTAL 0.4 MG/DL (0.3-1.2); BLOOD UREA NITROGEN 31 MG/DL (9-23); CALCIUM LEVEL 8.2 MG/DL (8.3-10.6); CARBON DIOXIDE LEVEL 26 MMOL/L (20-31); CHLORIDE LEVEL 107 MMOL/L (98-107); CREATININE FOR GFR 0.98 MG/DL (0.70-1.30); GLOMERULAR FILTRATION RATE > 60.0 (>42); GLUCOSE, FASTING 93 MG/DL (74-106); POTASSIUM SERUM 4.4 MMOL/L (3.5-5.1); SODIUM LEVEL 140 MMOL/L (136-145); TOTAL PROTEIN 5.3 G/DL (5.7-8.2)
[2024-08-09 12:25] LABS: CPK CREATINE PHOSPHOKINASE 178 U/L (46-171)
[2024-08-09] MEDS: FUROSEMIDE 20 MG TAB PO ONE (13:40)
[2024-08-09 16:48] LABS: KETONE, URINE AUTO RFX TRACE mg/dL (NEGATIVE); LEUKOCYTE ESTERASE UR AUTO RFX NEGATIVE (NEGATIVE); NITRITE, URINE AUTO RFX NEGATIVE (NEGATIVE); RBC, URINE AUTO RFX 0 /HPF (0-3); SQUAM EPITHELIAL CELL UR AURFX 0 /HPF (0-6); WBC, URINE AUTO RFX 8 /HPF (0-3)
[2024-08-09] MEDS: oxyCODONE 5MG TAB PO PRN (22:10)
[2024-08-10] MEDS: methocarbamoL 500 MG TAB PO PRN (00:50)
[2024-08-10 04:47] VITALS: BP 124/58; TEMP 97.5; O2SAT 97
[2024-08-10 06:24] LABS: BASO % 0.4 % (0.0-1.0); EOS # 0.3 10^3/uL (0.0-0.5); EOS % 2.4 % (0.0-3.0); HEMATOCRIT 28.5 % (42.0-52.0); HEMOGLOBIN 9.3 g/dl (13.5-17.5); LYMPH # 1.4 10^3/uL (1.5-5.0); LYMPH % 13.7 % (24.0-44.0); MEAN CORPUSCULAR HGB CONC 32.6 g/dl (32.0-36.5); MEAN CORPUSCULAR VOLUME 101.1 fl (80.0-96.0); MONO # 0.9 10^3/uL (0.0-0.8); MONO % 8.5 % (2.0-8.0); NEUTROPHILS # 7.1 10^3/uL (1.5-8.5); NEUTROPHILS % 69.4 % (36.0-66.0); PLATELET COUNT, AUTOMATED 300 10^3/uL (150-450); RED BLOOD COUNT 2.82 10^6/uL (4.30-6.10); WHITE BLOOD COUNT 10.3 10^3/uL (4.0-10.0)
[2024-08-10 06:44] LABS: BLOOD UREA NITROGEN 28 MG/DL (9-23); CALCIUM LEVEL 8.2 MG/DL (8.3-10.6); CARBON DIOXIDE LEVEL 30 MMOL/L (20-31); CHLORIDE LEVEL 106 MMOL/L (98-107); CREATININE FOR GFR 0.98 MG/DL (0.70-1.30); GLOMERULAR FILTRATION RATE > 60.0 (>42); GLUCOSE, FASTING 92 MG/DL (74-106); POTASSIUM SERUM 4.6 MMOL/L (3.5-5.1); SODIUM LEVEL 141 MMOL/L (136-145)
[2024-08-10] MEDS: SPIRONOLACTONE 25 MG TAB PO SCH (08:08)
[2024-08-10] MEDS: FUROSEMIDE 20 MG TAB PO SCH (08:08)
[2024-08-10 12:00] VITALS: BP 117/58; TEMP 97.8; O2SAT 94
[2024-08-10 20:00] VITALS: BP 124/54; TEMP 98; O2SAT 94
[2024-08-11] VITALS (9 sets, daily range): BP systolic 108–127; BP diastolic 56–58; TEMP 98.2–98.3; O2SAT 90–95
[2024-08-12 04:40] VITALS: BP 136/65; TEMP 97.7; O2SAT 91
[2024-08-12 05:43] LABS: BASO % 0.5 % (0.0-1.0); EOS # 0.2 10^3/uL (0.0-0.5); EOS % 2.9 % (0.0-3.0); HEMATOCRIT 28.6 % (42.0-52.0); HEMOGLOBIN 9.3 g/dl (13.5-17.5); LYMPH # 1.3 10^3/uL (1.5-5.0); LYMPH % 17.4 % (24.0-44.0); MEAN CORPUSCULAR HGB CONC 32.5 g/dl (32.0-36.5); MEAN CORPUSCULAR VOLUME 98.3 fl (80.0-96.0); MONO # 0.6 10^3/uL (0.0-0.8); MONO % 8.6 % (2.0-8.0); NEUTROPHILS # 4.7 10^3/uL (1.5-8.5); NEUTROPHILS % 64.3 % (36.0-66.0); PLATELET COUNT, AUTOMATED 379 10^3/uL (150-450); RED BLOOD COUNT 2.91 10^6/uL (4.30-6.10); WHITE BLOOD COUNT 7.4 10^3/uL (4.0-10.0)
[2024-08-12 06:02] LABS: BLOOD UREA NITROGEN 22 MG/DL (9-23); CALCIUM LEVEL 8.2 MG/DL (8.3-10.6); CARBON DIOXIDE LEVEL 28 MMOL/L (20-31); CHLORIDE LEVEL 107 MMOL/L (98-107); CREATININE FOR GFR 0.86 MG/DL (0.70-1.30); GLOMERULAR FILTRATION RATE > 60.0 (>42); GLUCOSE, FASTING 94 MG/DL (74-106); POTASSIUM SERUM 4.9 MMOL/L (3.5-5.1); SODIUM LEVEL 141 MMOL/L (136-145)
[2024-08-12] MEDS ORDERED: E-Z-PAQUE 96% w/w SUSP 176GM BTL As Ordered ONE (11:42)
[2024-08-12] MEDS ORDERED: BARIUM SULFATE 700 MG TABLET (E-Z-DISK) As Ordered ONE (11:42)
[2024-08-12] MEDS ORDERED: VARIBAR NECTAR 40% w/v 240ML SUSP BTL As Ordered ONE (11:42)
[2024-08-12] MEDS ORDERED: VARIBAR PUDDING 40% w/v 230ML TUBE As Ordered ONE (11:42)
[2024-08-12 12:37] VITALS: BP 125/63; TEMP 97.8; O2SAT 93
[2024-08-12] MEDS: INDOMETHACIN 25 MG CAP PO SCH (17:43)
[2024-08-12 20:00] VITALS: BP 159/67; TEMP 98; O2SAT 92
[2024-08-12] MEDS: FAMOTIDINE 20 MG TAB PO SCH (21:07)
[2024-08-13 04:00] VITALS: BP 157/80; TEMP 98; O2SAT 92
[2024-08-13 09:26] VITALS: BP 115/57
[2024-08-13 12:00] VITALS: BP 109/55; TEMP 97.5; O2SAT 95
[2024-08-13 20:00] VITALS: BP 121/59; TEMP 97.9; O2SAT 93
[2024-08-14 04:00] VITALS: BP 121/72; TEMP 97.9; O2SAT 94
[2024-08-14 12:07] VITALS: BP 116/56; TEMP 98.4; O2SAT 94
[2024-08-14 19:49] VITALS: BP 121/58; TEMP 99.1; O2SAT 92
[2024-08-15] MEDS ORDERED: PERMETHRIN 5% CREAM 60 GM TOP SCH
[2024-08-15 03:33] VITALS: BP 145/65; TEMP 96.6; O2SAT 92
[2024-08-15] MEDS ORDERED: ATOR1TAB21 PO (11:51)
[2024-08-15] MEDS ORDERED: INDO-16 PO (11:51)
[2024-08-15] MEDS ORDERED: ACET-683 PO (11:51)
[2024-08-15] MEDS ORDERED: OMEP-173 PO (11:51)
[2024-08-15] MEDS ORDERED: CARB25TA9 PO (11:51)
[2024-08-15] MEDS ORDERED: CLOP75TA2 PO (11:51)
[2024-08-15] MEDS ORDERED: THERTAB19 PO (11:51)
[2024-08-15] MEDS ORDERED: LIDO5TD TD (11:51)
[2024-08-15] MEDS ORDERED: METH-1164 PO (11:51)
[2024-08-15] MEDS ORDERED: ALDA25TA2 PO (11:52)
[2024-08-15] MEDS ORDERED: OXYC-517 PO (11:52)
[2024-08-15 11:53] VITALS: BP 128/60; TEMP 97.7; O2SAT 94
[2024-08-15] MEDS ORDERED: PROT20TA11 PO (15:37)
[2024-08-15 20:00] VITALS: BP 117/58; TEMP 98.4; O2SAT 93
[2024-08-15] MEDS: PERMETHRIN 5% CREAM 60 GM TOP ONE (21:42)
[2024-08-16 05:00] VITALS: BP 124/58; TEMP 98.3; O2SAT 91
== END 2024-08-16 11:45 | disposition home health service (06) | DRG 56 ==
LOC: M PM&R 10:43
PROVIDERS: ADMIT Physical Medicine & Rehabilitation; ATTEND Physical Medicine & Rehabilitation
DX: I69.365 Other paralytic syndrome following cerebral infarction, bilateral (principal); J10.08 Influenza due to other identified influenza virus with other specified pneumonia; M62.82 Rhabdomyolysis; G20.A1 Parkinson's disease without dyskinesia, without mention of fluctuations; M17.0 Bilateral primary osteoarthritis of knee; E78.5 Hyperlipidemia, unspecified; Z87.891 Personal history of nicotine dependence; I69.391 Dysphagia following cerebral infarction; J44.9 Chronic obstructive pulmonary disease, unspecified; M48.02 Spinal stenosis, cervical region; M48.061 Spinal stenosis, lumbar region without neurogenic claudication; F10.10 Alcohol abuse, uncomplicated; M21.372 Foot drop, left foot; L89.326 Pressure-induced deep tissue damage of left buttock; L89.310 Pressure ulcer of right buttock, unstageable; Z79.899 Other long term (current) drug therapy; Z79.82 Long term (current) use of aspirin; E55.9 Vitamin D deficiency, unspecified; G57.83 Other specified mononeuropathies of bilateral lower limbs